=== PATIENT | male | born 1950 | race Caucasian/White ===

== ENCOUNTER 2019-04-28 14:40 | Inpatient (IN) | payer MEDICARE, OTHER ==
[~2019-04-28] VITALS: Ht 180.3 cm; Wt 97.2 kg
[~2019-04-28 14:40] MED LIST: ASPI-482 PO; BYSTOLIC5 MG PO; CHLO1CAP PO; CHOL100013 PO; FENO50CA PO; GABA300C18 PO; LEVO50TA5 PO; MORP15TA PO; MORP30TA3 PO; NITR0.4T SL; PRAV10TA2 PO; ZOLP10TA PO
[2019-04-28 15:06] VITALS: BP 105/70
[2019-04-28] MEDS ORDERED: TIZA4TAB2 PO (16:21)
--- NOTE | 2019-04-28 16:31 | PDOC2 ---
CARDIAC CONSULT DATE OF CONSULT Date of Consult DATE: 04/28/19 TIME: 16:25 SOURCE Source: Chart review, Patient HISTORY OF PRESENT ILLNESS HISTORY OF PRESENT ILLNESS This is a pleasant 69 yo male admitted for complains of chest pain and SOA. Pt was admitted at [facility] for renal failure with hx of renal tumor resection and bladder CA. He was treated with fluids as he was noted with dizziness, unsteady gait. Unclear in regards to what precipitated his significant renal failure as verbalized drinking at least 44 oz of fluid daily with no nausea or vomiting or diarrhea,. At that time he was also noted with photopsia, muffled hearing and confusion and was suspected that some of his medications maybe contributing such as opiod, gabapentin. He was treated and renal function got better and released yesterday. This morning around 0230 He started having intractable coughing with hemoptysis, citing bright red blood and was having sharp right chest pain and SOA. He was coughing so hard that he actually he had a urinary incontinence epi sodes. He was admitted at [place] again and noted with elevated troponin and transferred to [facility]. 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 PAST MEDICAL HISTORY Cardiovascular: CAD, HTN, Hyperlipidemia Pulmonary: Other (TB at 11 yrs old; [facility]) CENTRAL NERVOUS SYSTEM: Periperal neuropathy GI: No pertinent hx Heme/Onc: Cancer (renal tumor) Hepatobiliary: No pertinent hx Musculoskeletal: low back pain, Osteoarthritis Rheumatologic: No pertinent hx Infectious disease: No pertinent hx Renal/: Bladder Ca. Endocrine: No pertinent hx PAST SURGICAL HISTORY Past Surgical History: Cataract Removal, Other (left renal tumor removal; PCI/stent; back surgery; gastric surgery; vasectomy) FAMILY HISTORY Family History: Heart Disease (sister) SOCIAL HISTORY Smoke: Quit ALCOHOL: none Drugs: None Lives: with Family ALLERGIES ALLERGIES: Coded Allergies: No Known Drug Allergies (Unverified , 01/19/16) ROS Review of System 14 point ROS evaluated with pertinent positives noted per HPI PHYSICAL EXAM General: Alert, Oriented X3, Cooperative, No acute distress HEENT: Atraumatic, Mucous membr. moist/pink Lungs: Clear to auscultation, Normal air movement Heart: Regular rate (SR), Other (distant heart sounds) Abdomen: Soft, No tenderness Extremities: No cyanosis, No edema Skin: No breakdown, No significant lesion Neuro: Normal speech, Sensation intact Psych/Mental Status: Mental status NL, Mood NL MUSCULOSKELETAL: Osteoarthritic changes both hands VITALS/I&O VITALS/I&O: Vital Signs Date Time Temp Pulse Resp B/P (MAP) Pulse Ox O2 Delivery O2 Flow Rate FiO2 04/28/19 15:06 98.6 90 20 105/70 (82) 93 Nasal Cannula 4.0 98.6 ASSESSMENT/PLAN ASSESSMENT/PLAN 1. NSTEMI: trending up to 8, no EKG changes so far 2. Hemoptysis with intractable coughing with right chest pain 3. Hx of TB as 11 yrs old. 4. CAD: 2 stents with last placed in 2012. Follows with [facility] cardiology 5. HTN: controlled 6. HLP 7. Hx of bladder CA and left renal tumor resection 8. CKD: related to above. 9. Remote hx of tobaccoism Recommendations 1. Consult pulmonary and renal. IVF received in [facility] ED 2. Noncontrast CT chest, TTE today. Repeat EKG. 3. ASA. Heparin protocol. IVF 4. Repeat CBC, BMP, INR, and Mg. Check lipids 5. NPO after midnight GEORGE CAMARGO DEVELOPMENT EXECUTIVE Apr 28, 2019 16:31
[2019-04-28] MEDS ORDERED: MULT1TAB52 PO (17:04)
[2019-04-28] MEDS ORDERED: CALC250T PO (17:04)
[2019-04-28] MEDS ORDERED: OMEP20CA10 PO (17:04)
[2019-04-28] MEDS ORDERED: IV 1/2 NORMAL SALINE 1,000 ML IV ONE (17:15)
[2019-04-28 17:18] LABS: CALCIUM 7.7 mg/dL (8.5-10.1); CREATININE 1.6 mg/dL (0.7-1.3); GFR 43.2; HEMATOCRIT 39.8 % (39.0-53.0); HEMOGLOBIN 13.4 g/dL (13.0-17.5); MAGNESIUM 0.8 mg/dL (1.8-2.4); POTASSIUM 4.4 mmol/L (3.5-5.1); RED BLOOD COUNT 4.41 x10^6/uL (4.30-5.70); RED CELL DISTRIBUTION WIDTH 13.9 % (11.5-14.5); WHITE BLOOD COUNT 9.8 x10^3/uL (4.0-11.0)
--- NOTE | 2019-04-28 17:22 | PDOC1 ---
History and Physical Date of Admission Date of Admission DATE: 04/28/19 TIME: 17:21 Identification/Chief Complaint Chief Complaint TRANSFERRED FROM [facility] ER admitted at [facility] for renal failure with hx of renal tumor resection and bladder CA. He was treated with fluids as he was noted with dizziness, unsteady gait. HAS significant renal failure as verbalized drinking at least 44 oz of fluid daily with no nausea or vomiting or diarrhea,. NOTED muffled hearing and confusion . He was released yesterday. This morning around 0230 He started having intractable coughing , sharp right chest pain and SOA. Past Medical History Past Medical History PAST MEDICAL HISTORY Cardiovascular: CAD, HTN, Hyperlipidemia Pulmonary: Other (TB at 11 yrs old; [facility]) CENTRAL NERVOUS SYSTEM: Peripheral neuropathy GI: No pertinent hx Heme/Onc: Cancer (renal tumor) Hepatobiliary: No pertinent hx Musculoskeletal: low back pain, Osteoarthritis Rheumatologic: No pertinent hx Infectious disease: No pertinent hx Renal/: Bladder Ca. Endocrine: No pertinent hx PAST SURGICAL HISTORY Past Surgical History: Cataract Removal, Other (left renal tumor removal; PCI/stent; back surgery; gastric surgery; vasectomy FAMILY HISTORY Family History: Heart Disease (sister) SOCIAL HISTORY Smoke: Quit ALCOHOL: none Drugs: None Lives: with Family ALLERGIES ALLERGIES: Coded Allergies: No Known Drug Allergies Cardiovascular: CAD, HTN, Hyperlipidemia Pulmonary: Other (TB at 11 yrs old; [facility]) CENTRAL NERVOUS SYSTEM: Periperal neuropathy GI: No pertinent hx Heme/Onc: Cancer (renal tumor) Hepatobiliary: No pertinent hx Musculoskeletal: low back pain, Osteoarthritis Rheumatologic: No pertinent hx Infectious disease: No pertinent hx Renal/: Bladder Ca. Endocrine: No pertinent hx Past Surgical History Past Surgical History: Cataract Removal, Other (left renal tumor removal; PCI/stent; back surgery; gastric surgery; vasectomy) Family History Family History: Heart Disease (sister) Social History Smoke: Quit ALCOHOL: none Drugs: None Current Medications Current Medications Current Medications Sodium Chloride 1,000 ml @ 100 mls/hr 1X ONCE IV ; Start 04/28/19 at 17:15; Stop 04/29/19 at 03:14 Heparin Sodium/ Dextrose 500 ml @ 0 mls/hr CONT PRN IV cvc protocol; Start 04/28/19 at 17:15 Heparin Sodium (Porcine) (Heparin Sodium) 2,350 unit PRN Q6HRS PRN IV FOR UFH LEVEL LESS THAN 0.2; Start 04/28/19 at 17:15 Info (Anti-Coagulation Monitoring By Pharmacy) 1 each PRN DAILY PRN MC SEE COMMENTS; Start 04/28/19 at 17:30 Active Scripts Active Reported Calcium Citrate 250 Mg Tablet 250 Mg PO DAILY Multivitamins (Multivitamin) 1 Each Tablet 1 Tab PO DAILY Omeprazole 20 Mg Capsule.dr 20 Mg PO BID Tizanidine Hcl 4 Mg Tablet 4 Mg PO TID PRN Gabapentin (Gabapentin) 300 Mg Capsule 600 Mg PO TID Pravastatin Sodium 10 Mg Tablet 1 Tab PO DAILY Aspir 81 (Aspirin) 81 Mg Tablet.dr 1 Tab PO DAILY Morphine Sulfate 15 Mg Tablet 1 Tab PO BID Allergies Allergies: Coded Allergies: No Known Drug Allergies (Unverified , 01/19/16) ROS General: No: Chills, Night Sweats, Fatigue, Malaise, Appetite, Other PSYCHOLOGICAL ROS: YES: Anxiety; No: Behavioral Disorder, Concentration difficultie, Decreased libido, Depression, Disorientation, Hallucinations, Hostility, Irritablity, Memory difficulties, Mood Swings, Obsessive thoughts, Physical abuse, Sexual abuse, Sleep disturbances, Suicidal ideation, Other Eyes: No Blurry vision, No Decreased vision, No Double vision, No Dry eyes, No Excessive tearing, No Eye Pain, No Itchy Eyes, No Loss of vision, No Photophobia, No Scotomata, No Uses contacts, No Uses glasses, No Other HEENT: No: Heacaches, Visual Changes, Hearing change, Nasal congestion, Nasal discharge, Oral lesions, Sinus pain, Sore Throat, Epistaxis, Sneezing, Snoring, Tinnitus, Vertigo, Vocal changes, Other ALLERGY AND IMMUNOLOGY: No: Hives, Insect Bite Sensitivity, Itchy/Watery Eyes, Nasal Congestion, Post Nasal Drip, Seasonal Allergies, Other ENDOCRINE: No: Breast Changes, Galactorrhea, Hair Pattern Changes, Hot Flashes, Malaise/lethargy, Mood Swings, Palpitations, Polydipsia/polyuria, Skin Changes, Temperature Intolerance, Unexpected Weight Changes, Other Breast: No New/Changing Breast Lumps, No Nipple changes, No Nipple discharge, No Other Respiratory: YES: Hemoptysis Cardiovascular: yes Chest Pain Musculoskeletal: No Gait Disturbance, No Joint Pain, No Joint Stiffness, No Joint Swelling, No Muscle Pain, No Muscular Weakness, No Pain In:, No Swelling In:, No Other Neurological: No Behavorial Changes, No Bowel/Bladder ControlChng, No Confusion, No Dizziness, No Gait Disturbance, No Headaches, No Impaired Coord/balance, No Memory Loss, No Numbness/Tingling, No Seizures, No Speech Problems, No Tremors, No Visual Changes, No Weakness, No Other Skin: Yes Dry Skin; No Eczema, No Hair Changes, No Lumps, No Mole Changes, No Mottling, No Nail Changes, No Pruritus, No Rash, No Skin Lesion Changes, No Other, No Acne Physical Exam General: Alert, Oriented X3, Cooperative, No acute distress HEENT: Atraumatic, PERRLA Lungs: Clear to auscultation Heart: S1S2, RRR, no thrills Breasts: Not examined Abdomen: Normal bowel sounds, Soft Rectal Exam: not examined PELVIC: Examination not indicated Extremities: No clubbing, No cyanosis Neuro: Normal speech, Strength at 5/5 X4 ext, Sensation intact, Cranial nerves 3-12 NL Psych/Mental Status: Mental status NL, Mood NL Vitals Vitals Vital Signs Date Time Temp Pulse Resp B/P (MAP) Pulse Ox O2 Delivery O2 Flow Rate FiO2 04/28/19 15:06 98.6 90 20 105/70 (82) 93 Nasal Cannula 4.0 98.6 Labs Labs Laboratory Tests Test 04/28/19 16:10 White Blood Count 9.8 x10^3/uL (4.0-11.0) Red Blood Count 4.41 x10^6/uL (4.30-5.70) Hemoglobin 13.4 g/dL (13.0-17.5) Hematocrit 39.8 % (39.0-53.0) Mean Corpuscular Volume 90 fL (79-100) Mean Corpuscular Hemoglobin 30 pg (25-35) Mean Corpuscular Hemoglobin Concent 34 g/dL (31-37) Red Cell Distribution Width 13.9 % (11.5-14.5) Platelet Count 116 x10^3/uL (140-400) Sodium Level 146 mmol/L (136-145) Potassium Level 4.4 mmol/L (3.5-5.1) Chloride Level 110 mmol/L (98-107) Carbon Dioxide Level 26 mmol/L (21-32) Anion Gap 10 (6-14) Blood Urea Nitrogen 28 mg/dL (8-26) Creatinine 1.6 mg/dL (0.7-1.3) Estimated GFR (Cockcroft-Gault) 43.2 Glucose Level 110 mg/dL (70-99) Calcium Level 7.7 mg/dL (8.5-10.1) Magnesium Level 0.8 mg/dL (1.8-2.4) Troponin I Quantitative 8.706 ng/mL (0.000-0.055) Laboratory Tests Test 04/28/19 16:10 White Blood Count 9.8 x10^3/uL (4.0-11.0) Red Blood Count 4.41 x10^6/uL (4.30-5.70) Hemoglobin 13.4 g/dL (13.0-17.5) Hematocrit 39.8 % (39.0-53.0) Mean Corpuscular Volume 90 fL (79-100) Mean Corpuscular Hemoglobin 30 pg (25-35) Mean Corpuscular Hemoglobin Concent 34 g/dL (31-37) Red Cell Distribution Width 13.9 % (11.5-14.5) Platelet Count 116 x10^3/uL (140-400) Sodium Level 146 mmol/L (136-145) Potassium Level 4.4 mmol/L (3.5-5.1) Chloride Level 110 mmol/L (98-107) Carbon Dioxide Level 26 mmol/L (21-32) Anion Gap 10 (6-14) Blood Urea Nitrogen 28 mg/dL (8-26) Creatinine 1.6 mg/dL (0.7-1.3) Estimated GFR (Cockcroft-Gault) 43.2 Glucose Level 110 mg/dL (70-99) Calcium Level 7.7 mg/dL (8.5-10.1) Magnesium Level 0.8 mg/dL (1.8-2.4) Troponin I Quantitative 8.706 ng/mL (0.000-0.055) Images Images COMPARISON STUDY: Chest radiograph 04/28/2019. TECHNIQUE: Unenhanced axial images were obtained through the lungs and upper abdomen. Coronal coronal and sagittal multiplanar reconstructions were also obtained. PQRS compliance statement: One or more of the following individualized dose reduction techniques were utilized for this examination: 1. Automated exposure control 2. Adjustment of the mA and/or kV according to patient size 3. Use of iterative reconstruction technique FINDINGS: Lungs and Airways: Multifocal bilateral ground glass opacities and consolidations, greatest in the right lung. Cluster of left lower lobe nodules largest measuring 0.7 cm demonstrates greater than two-year stability. Additional scattered calcified pulmonary granulomas. Normal central airways. Pleura: Small right pleural effusion. Heart and Mediastinum: The visualized thyroid gland is normal in size and attenuation. No axillary or supraclavicular lymphadenopathy. No mediastinal, hilar or retrocrural lymphadenopathy. Calcified mediastinal and hilar lymph nodes consistent with remote granulomatous disease. Cardiomegaly. No pericardial effusion. Extensive coronary artery atherosclerotic disease. Atherosclerosis of the thoracic aorta and branch vessels. Abdomen: Partially visualized right renal upper pole caliectasis, better characterized on recent renal ultrasound. Right renal calculi. Calcified splenic granulomas. Gastric bypass. Bones and Soft Tissues: The visualized skeletal structures and soft tissues of the chest wall are within normal limits. IMPRESSION: Multifocal bilateral ground glass opacities and consolidations, greatest in the right lung and likely representing multifocal infection. Recommend follow-up unenhanced chest CT in 2-3 months after appropriate medical therapy to ensure resolution. Small right pleural effusion. Electronically signed by: Mateo Parada MD (04/28/2019 5:20 PM) [facility] VTE Prophylaxis Ordered VTE Prophylaxis Devices: No VTE Pharmacological Prophylaxi: Yes Assessment/Plan Assessment/Plan ASSESSMENT 1. NSTEMI: ACUTE 2. Hemoptysis Multifocal bilateral ground glass opacities and consolidations, greatest in the right lung and likely representing multifocal infection. 3. Hx of TB as child 4. CAD: 2 stents with last placed in 2012. [facility] 5. HTN: 6. hyperlipidemia 7. Hx of bladder CA and left renal tumor resection 8. CKD: 9. hx of tobacco use, quit 10. hypothyroid on replacement 11. peripheral neuropathy plan 1. Consult pulmonary 2. consult nephrology. 3. CT chest, 4. echo 5. Heparin 6. FLP 7. id consult 8. sputum culture 9. home meds 10. admit 43 min cc time JOSEPH ARRINGTON MD Apr 28, 2019 17:22
[2019-04-28 17:29] LABS: PROTHROMBIN TIME PATIENT 15.6 SEC (11.7-14.0)
[2019-04-28] MEDS ORDERED: ANTI-COAG MONITOR BY PHARMACY. MC PRN (17:30)
[2019-04-28] MEDS: HEPARIN 25,000UTS/500ML PREMIX 500 ML IV PRN (17:40)
[2019-04-28] MEDS ORDERED: MAGNESIUM SULFATE 4GM 100 ML IV ONE (18:00)
[2019-04-28] MEDS ORDERED: CARV25TA2 PO (18:02)
[2019-04-28] MEDS ORDERED: LEVO75TA5 PO (18:02)
[2019-04-28] MEDS ORDERED: BUPR1PAT8 TP (18:02)
[2019-04-28] MEDS ORDERED: IV NORMAL SALINE 1000ML BAG 1,000 ML IV SCH (18:05)
[2019-04-28] MEDS ORDERED: 0.9 % SODIUM CHLORIDE 10 ML DISP.SYRIN. IV PRN (18:15)
[2019-04-28] MEDS ORDERED: ACETAMINOPHEN 325 MG TABLET. PO PRN (18:15)
[2019-04-28] MEDS ORDERED: cloNIDine HCL 0.1 MG TABLET PO PRN (18:15)
[2019-04-28] MEDS ORDERED: ONDANSETRON PF 4 MG/2 ML VIAL. IV PRN (18:15)
[2019-04-28] MEDS ORDERED: guaiFENesin ORAL 200 MG/10 ML LIQUID. PO PRN (18:15)
[2019-04-28] MEDS ORDERED: SODIUM PHOSPHATES 19/7GM 133 ML ENEMA. PR PRN (18:15)
[2019-04-28 19:00] VITALS: BP 92/51
[2019-04-28 20:00] VITALS: BP 94/51
[2019-04-28] MEDS: ATORVASTATIN CALCIUM 10 MG TABLET. PO SCH (20:58)
[2019-04-28 21:00] VITALS: BP 110/63
[2019-04-28] MEDS: GABAPENTIN 300 MG CAPSULE. PO SCH (21:00)
[2019-04-28] MEDS: CARVEDILOL 12.5 MG TABLET. PO SCH (21:00)
[2019-04-28] MEDS: MORPHINE ER 15 MG TABLET.ER PO SCH (21:01)
[2019-04-28 22:00] VITALS: BP 93/44
[2019-04-28 23:00] VITALS: BP 96/54
[2019-04-28] MEDS: ALBUTEROL SULFATE 2.5 MG/3 ML NEBU. NEB PRN (23:29)
[2019-04-29] VITALS (32 sets, daily range): BP systolic 63–124; BP diastolic 39–68
--- NOTE | 2019-04-29 01:50 | NUR ---
Pt A&O x4, O2 saturation low 90's, but experiencing Low BP and inadequate MAP; 67/43 at 0134 AM. Bin Packer paged. Bin Packer answered page. Bin Packer informed and updated on pt condition. Bin Packer ordered this RN to begin Dopamine drip at 3mcg/min and titrate to keep systolic blood pressure above 95 mmHg. Also oyster worker ordered this RN to start NS at 75mLs/ hr. Will continue to assess and monitor pt condition.
[2019-04-29] MEDS: IV NORMAL SALINE 1000ML BAG 1,000 ML IV SCH ×2 (02:00→13:47)
[2019-04-29] MEDS: HEPARIN for IV BOLUS 10,000 UNIT/10 ML VIAL. IV PRN (02:13)
--- NOTE | 2019-04-29 03:15 | NUR ---
Pt O2 saturations dropping with titration of Dopamine. RT paged. RT called back and put pt on Bipap with settings of IPAP at 18, EPAP of 6, Backup rate of 16 and O2 of 50%. Will consult orthotic/prosthetic clinician to inform them of pt status change and intervention.
[2019-04-29 05:27] LABS: BASO # 0.1 x10^3/uL (0.0-0.2); BASO % 1 % (0-3); EOS # 0.1 x10^3/uL (0.0-0.7); EOS % 1 % (0-3); HEMATOCRIT 35.1 % (39.0-53.0); HEMOGLOBIN 11.9 g/dL (13.0-17.5); LYMPH % 7 % (24-48); MEAN CORPUSCULAR HEMOGLOBIN 31 pg (25-35); MEAN CORPUSCULAR HGB CONC 34 g/dL (31-37); MEAN CORPUSCULAR VOLUME 90 fL (79-100); MONO # 0.5 x10^3/uL (0.0-1.1); MONO % 3 % (0-9); NEUT # 12.6 x10^3/uL (1.8-7.7); NEUT % 89 % (31-73); PLATELET COUNT 123 x10^3/uL (140-400); RED BLOOD COUNT 3.88 x10^6/uL (4.30-5.70); RED CELL DISTRIBUTION WIDTH 14.4 % (11.5-14.5); WHITE BLOOD COUNT 14.2 x10^3/uL (4.0-11.0)
[2019-04-29 05:49] LABS: CALCIUM 7.3 mg/dL (8.5-10.1); CHOLESTEROL/HDL RATIO 1.6; CREATININE 1.7 mg/dL (0.7-1.3); GFR 40.3; MAGNESIUM 1.9 mg/dL (1.8-2.4); POTASSIUM 4.6 mmol/L (3.5-5.1)
--- NOTE | 2019-04-29 06:05 | NUR ---
This RN called Dr. Tatum to give update about the status of pt in room 110. Status and pt condition briefed to community health nurse staff. This RN made Tool Setter aware of Bipap intervention aswell as settings of IPAP of 18, EPAP of 6, Backup rate of 16 and O2 of 50%, community health nurse staff approved of all settings and Bipap order. Tool Setter also ordered urine drug screen for pt. Tool Setter also ordered Solumedrol 125 mg IVP one time now and a separate order for Solumedrol 125mg IVP BID. Tool Setter also ordered a repeat chest xray as well as an ABG to accompany morning labs. Will continue to assess and monitor pt.
[2019-04-29] MEDS ORDERED: methylPREDNISolone SOD SUCC PF 125 MG/2 ML VIAL. IV ONE (06:30)
[2019-04-29] MEDS: HEPARIN 25,000UTS/500ML PREMIX 500 ML IV PRN ×2 (07:28→23:15)
[2019-04-29 07:29] LABS: % BANDS 29 % (0-9); % LYMPHS 5 % (24-48); % METAS 5 % (0-0); % MONOS 4 % (0-10); % MYELOS 2 % (0-0); % SEGS 55 % (35-66); PLT ESTIMATE DECREASED (ADEQUATE)
--- NOTE | 2019-04-29 07:55 | RAD ---
EXAM: AP View of the chest DATE: 04/29/2019 6:11 AM INDICATION: Pulmonary opacities, follow up COMPARISON: CT 04/28/19 FINDINGS: The heart is not enlarged. Diffuse right sided parenchymal opacities and left infrahilar airspace opacities are stable. Mediastinal and hilar contours are normal. No pleural effusion or pneumothorax. IMPRESSION: 1. Bilateral airspace opacities likely multifocal pneumonia, stable. Electronically signed by: Freddy Titus MD (04/29/2019 7:52 AM) [facility]
[2019-04-29] MEDS: CARVEDILOL 12.5 MG TABLET. PO SCH ×2 (08:00→17:00)
--- NOTE | 2019-04-29 08:15 | PDOC ---
Infectious Disease Note Vital Sign Vital Signs Vital Signs Date Time Temp Pulse Resp B/P (MAP) Pulse Ox O2 Delivery O2 Flow Rate FiO2 04/29/19 05:55 94 BiPAP/CPAP 04/29/19 03:41 18 6.0 04/29/19 02:43 75 63/40 (48) 04/29/19 00:00 99.0 99.0 Labs Lab Laboratory Tests Test 04/28/19 16:10 04/28/19 17:45 04/29/19 00:40 04/29/19 05:00 White Blood Count 9.8 x10^3/uL (4.0-11.0) 14.2 x10^3/uL (4.0-11.0) Red Blood Count 4.41 x10^6/uL (4.30-5.70) 3.88 x10^6/uL (4.30-5.70) Hemoglobin 13.4 g/dL (13.0-17.5) 11.9 g/dL (13.0-17.5) Hematocrit 39.8 % (39.0-53.0) 35.1 % (39.0-53.0) Mean Corpuscular Volume 90 fL (79-100) 90 fL (79-100) Mean Corpuscular Hemoglobin 30 pg (25-35) 31 pg (25-35) Mean Corpuscular Hemoglobin Concent 34 g/dL (31-37) 34 g/dL (31-37) Red Cell Distribution Width 13.9 % (11.5-14.5) 14.4 % (11.5-14.5) Platelet Count 116 x10^3/uL (140-400) 123 x10^3/uL (140-400) Prothrombin Time 15.6 SEC (11.7-14.0) Prothromb Time International Ratio 1.3 (0.8-1.1) Sodium Level 146 mmol/L (136-145) 143 mmol/L (136-145) Potassium Level 4.4 mmol/L (3.5-5.1) 4.6 mmol/L (3.5-5.1) Chloride Level 110 mmol/L (98-107) 107 mmol/L (98-107) Carbon Dioxide Level 26 mmol/L (21-32) 28 mmol/L (21-32) Anion Gap 10 (6-14) 8 (6-14) Blood Urea Nitrogen 28 mg/dL (8-26) 32 mg/dL (8-26) Creatinine 1.6 mg/dL (0.7-1.3) 1.7 mg/dL (0.7-1.3) Estimated GFR (Cockcroft-Gault) 43.2 40.3 Glucose Level 110 mg/dL (70-99) 121 mg/dL (70-99) Calcium Level 7.7 mg/dL (8.5-10.1) 7.3 mg/dL (8.5-10.1) Magnesium Level 0.8 mg/dL (1.8-2.4) 1.9 mg/dL (1.8-2.4) Troponin I Quantitative 8.706 ng/mL (0.000-0.055) 9.584 ng/mL (0.000-0.055) Heparin Anti-Xa Act, Unfractionated 0.28 IU/mL (0.30-0.70) 0.12 IU/mL (0.30-0.70) 0.44 IU/mL (0.30-0.70) Neutrophils (%) (Auto) 89 % (31-73) Lymphocytes (%) (Auto) 7 % (24-48) Monocytes (%) (Auto) 3 % (0-9) Eosinophils (%) (Auto) 1 % (0-3) Basophils (%) (Auto) 1 % (0-3) Neutrophils # (Auto) 12.6 x10^3/uL (1.8-7.7) Lymphocytes # (Auto) 1.0 x10^3/uL (1.0-4.8) Monocytes # (Auto) 0.5 x10^3/uL (0.0-1.1) Eosinophils # (Auto) 0.1 x10^3/uL (0.0-0.7) Basophils # (Auto) 0.1 x10^3/uL (0.0-0.2) Segmented Neutrophils % 55 % (35-66) Band Neutrophils % 29 % (0-9) Lymphocytes % 5 % (24-48) Monocytes % 4 % (0-10) Metamyelocytes % 5 % (0-0) Myelocytes % 2 % (0-0) Platelet Estimate Decreased (ADEQUATE) Large Platelets Occ Triglycerides Level 33 mg/dL (0-150) Cholesterol Level 64 mg/dL (0-200) LDL Cholesterol, Calculated 18 mg/dL (0-100) VLDL Cholesterol, Calculated 7 mg/dL (0-40) Non-HDL Cholesterol Calculated 25 mg/dL (0-129) HDL Cholesterol 39 mg/dL (40-60) Cholesterol/HDL Ratio 1.6 Objective Assessment Pneumonia/CHF KAJAL Troponin leak Leukocytosis Recent hospitalization Plan Plan of Care bc sputum culture start zosyn supportive care MOHIT CALLAHAN MD Apr 29, 2019 08:15
[2019-04-29 08:29] LABS: BASE EXCESS ABG 0 mmol/L (-3-3); HCO3 ABG 25 mmol/L (21-28); PCO2 ABG 42 mmHg (35-46); PO2 ABG 66 mmHg (65-108); SAT O2 ABG 92 % (92-99)
[2019-04-29] MEDS: MORPHINE ER 15 MG TABLET.ER PO SCH ×2 (08:49→21:08)
[2019-04-29] MEDS: CALCIUM CARBONATE 500 MG TABLET PO SCH (09:00)
[2019-04-29] MEDS ORDERED: ACETAMINOPHEN 500 MG TABLET PO PRN (09:00)
[2019-04-29] MEDS ORDERED: ACETAMINOPHEN/CODEINE 300/30MG TABLET. PO PRN (09:00)
[2019-04-29 09:13] LABS: FIO2 ABG 50
--- NOTE | 2019-04-29 09:32 | CONS ---
DATE OF CONSULTATION: 04/29/2019 REQUESTING PHYSICIAN: Harley Jacques MD REASON FOR CONSULTATION: Abnormal chest CT. HISTORY OF PRESENT ILLNESS: This is a 69-year-old gentleman who was admitted to [facility] for about 3 or 4 days with acute kidney injury. He received lots of fluids. He had dizziness then the patient apparently improved and was discharged. The patient was home for about a day or so and he came back here with significant chest pain and shortness of breath. The patient did not have any fever, did not have any nausea, vomiting, diarrhea, urinary symptoms, abdominal pain, headache or visual symptoms. The patient was found to have a temperature up to 99, low blood pressure. Creatinine 1.7. Troponin up to 9.5. A chest x-ray and chest CT, bilateral ground-glass opacities and consolidations. He did have a chest x-ray a few days before at [facility] at the time of his admission there, which was normal. PAST MEDICAL HISTORY: Positive for history of coronary artery disease with 3 heart attacks and stenting done in the past. The patient also has had a bladder cancer history and has had renal tumor removal done. He has had back surgery done with spinal stenosis. He has had some muscle rupture done, which surgery done for that. Also, has hypertension, hyperlipidemia. Going up when 11 years old, he was diagnosed with TB and it is not very clear about that history. Also, has peripheral neuropathy. SOCIAL HISTORY: Negative for smoking, alcohol, illicit drug use. ALLERGIES: No known drug allergies. CURRENT MEDICATIONS: The patient is not on any antibiotics. REVIEW OF SYSTEMS: As per HPI, all other systems reviewed are negative. PHYSICAL EXAMINATION: GENERAL: Alert and oriented gentleman, not in distress. VITAL SIGNS: Stable with a T-max 99. HEENT: NAD. NECK: Supple, no JVP, no lymphadenopathy. LUNGS: Clear. HEART: S1, S2 regular. ABDOMEN: Benign. EXTREMITIES: No edema, cyanosis. SKIN: Unremarkable. NEUROLOGIC: Alert, awake and appropriate. No focal neurologic deficit. LABORATORY DATA: White count is 14,000. BUN and creatinine is 32 and 1.7. Troponin is 9.5. A chest x-ray and chest CT showed bilateral ground-glass opacity with consolidation. IMPRESSION: 1. Abnormal chest CT with the ground-glass opacity and consolidation, healthcare facility associated pneumonia is a possibility, although congestive heart failure is another possibility, especially when he received significant fluid with his acute kidney injury recently and he does have a history of heart attacks as well as troponin is very high. 2. Troponin leak. 3. Acute kidney injury. 4. Leukocytosis. 5. Coronary artery disease. RECOMMENDATIONS: I would initiate Zosyn. Blood culture and sputum culture will be obtained. Supportive care. Echo is done, report is pending and we will continue to follow. Thank you very much, Dr. Jacques, for giving me the opportunity to participate in this patient's care. MOHIT CALLAHAN MD DR: RODRIGO/pam JOB#: [id number] / [id number]
[2019-04-29] MEDS: GABAPENTIN 300 MG CAPSULE. PO SCH ×3 (09:43→21:08)
[2019-04-29] MEDS: PANTOPRAZOLE 40 MG TABLET.DR. PO SCH (09:44)
[2019-04-29] MEDS: MULTIVITAMIN with MINERAL TABLET. PO SCH (09:44)
[2019-04-29] MEDS: ASPIRIN ENTERIC COATED 81 MG TABLET.DR. PO SCH (09:44)
[2019-04-29] MEDS: LEVOTHYROXINE 75 MCG TABLET PO SCH (09:44)
[2019-04-29 10:00] LABS: BARBITURATES NEG (NEG); BENZODIAZEPINES NEG (NEG); CANNABINOIDS NEG (NEG); COCAINE NEG (NEG); METHADONE NEG (NEG); OPIATES POS (NEG); PHENCYCLIDINE NEG (NEG)
[2019-04-29 10:01] LABS: AMPHETAMINE/METHAMPHETAMINE NEG (NEG)
--- NOTE | 2019-04-29 12:24 | PDOC ---
CARDIO Progress Notes Date and Time Date of Service 04/29/2019 Time of Evaluation 1225 Subjective Subjective: No shortness of breath, No Palpitations, Other (right chest pain better) Vitals Vitals Vital Signs Date Time Temp Pulse Resp B/P (MAP) Pulse Ox O2 Delivery O2 Flow Rate FiO2 04/29/19 12:00 Venturi Mask 15.0 04/29/19 11:35 99 04/29/19 11:02 98.9 72 116/59 (78) 98.9 04/29/19 10:00 16 Weight Weight [ ] Input and Output Intake and Output Intake and Output 04/29/19 07:00 Intake Total 864.9 ml Output Total 325 ml Balance 539.9 ml Intake Oral 180 ml IV Total 684.9 ml Output Urine Total 325 ml Laboratory Labs Laboratory Tests Test 04/28/19 16:10 04/28/19 17:45 04/29/19 00:40 04/29/19 05:00 White Blood Count 9.8 x10^3/uL (4.0-11.0) 14.2 x10^3/uL (4.0-11.0) Red Blood Count 4.41 x10^6/uL (4.30-5.70) 3.88 x10^6/uL (4.30-5.70) Hemoglobin 13.4 g/dL (13.0-17.5) 11.9 g/dL (13.0-17.5) Hematocrit 39.8 % (39.0-53.0) 35.1 % (39.0-53.0) Mean Corpuscular Volume 90 fL (79-100) 90 fL (79-100) Mean Corpuscular Hemoglobin 30 pg (25-35) 31 pg (25-35) Mean Corpuscular Hemoglobin Concent 34 g/dL (31-37) 34 g/dL (31-37) Red Cell Distribution Width 13.9 % (11.5-14.5) 14.4 % (11.5-14.5) Platelet Count 116 x10^3/uL (140-400) 123 x10^3/uL (140-400) Prothrombin Time 15.6 SEC (11.7-14.0) Prothromb Time International Ratio 1.3 (0.8-1.1) Sodium Level 146 mmol/L (136-145) 143 mmol/L (136-145) Potassium Level 4.4 mmol/L (3.5-5.1) 4.6 mmol/L (3.5-5.1) Chloride Level 110 mmol/L (98-107) 107 mmol/L (98-107) Carbon Dioxide Level 26 mmol/L (21-32) 28 mmol/L (21-32) Anion Gap 10 (6-14) 8 (6-14) Blood Urea Nitrogen 28 mg/dL (8-26) 32 mg/dL (8-26) Creatinine 1.6 mg/dL (0.7-1.3) 1.7 mg/dL (0.7-1.3) Estimated GFR (Cockcroft-Gault) 43.2 40.3 Glucose Level 110 mg/dL (70-99) 121 mg/dL (70-99) Calcium Level 7.7 mg/dL (8.5-10.1) 7.3 mg/dL (8.5-10.1) Magnesium Level 0.8 mg/dL (1.8-2.4) 1.9 mg/dL (1.8-2.4) Troponin I Quantitative 8.706 ng/mL (0.000-0.055) 9.584 ng/mL (0.000-0.055) Heparin Anti-Xa Act, Unfractionated 0.28 IU/mL (0.30-0.70) 0.12 IU/mL (0.30-0.70) 0.44 IU/mL (0.30-0.70) Neutrophils (%) (Auto) 89 % (31-73) Lymphocytes (%) (Auto) 7 % (24-48) Monocytes (%) (Auto) 3 % (0-9) Eosinophils (%) (Auto) 1 % (0-3) Basophils (%) (Auto) 1 % (0-3) Neutrophils # (Auto) 12.6 x10^3/uL (1.8-7.7) Lymphocytes # (Auto) 1.0 x10^3/uL (1.0-4.8) Monocytes # (Auto) 0.5 x10^3/uL (0.0-1.1) Eosinophils # (Auto) 0.1 x10^3/uL (0.0-0.7) Basophils # (Auto) 0.1 x10^3/uL (0.0-0.2) Segmented Neutrophils % 55 % (35-66) Band Neutrophils % 29 % (0-9) Lymphocytes % 5 % (24-48) Monocytes % 4 % (0-10) Metamyelocytes % 5 % (0-0) Myelocytes % 2 % (0-0) Platelet Estimate Decreased (ADEQUATE) Large Platelets Occ Triglycerides Level 33 mg/dL (0-150) Cholesterol Level 64 mg/dL (0-200) LDL Cholesterol, Calculated 18 mg/dL (0-100) VLDL Cholesterol, Calculated 7 mg/dL (0-40) Non-HDL Cholesterol Calculated 25 mg/dL (0-129) HDL Cholesterol 39 mg/dL (40-60) Cholesterol/HDL Ratio 1.6 Test 04/29/19 08:18 04/29/19 09:30 O2 Saturation 92 % (92-99) Arterial Blood pH 7.40 (7.35-7.45) Arterial Blood pCO2 at Patient Temp 42 mmHg (35-46) Arterial Blood pO2 at Patient Temp 66 mmHg (65-108) Arterial Blood HCO3 25 mmol/L (21-28) Arterial Blood Base Excess 0 mmol/L (-3-3) FiO2 50 Urine Opiates Screen Pos (NEG) Urine Methadone Screen Neg (NEG) Urine Barbiturates Neg (NEG) Urine Phencyclidine Screen Neg (NEG) Urine Amphetamine/Methamphetamine Neg (NEG) Urine Benzodiazepines Screen Neg (NEG) Urine Cocaine Screen Neg (NEG) Urine Cannabinoids Screen Neg (NEG) Urine Ethyl Alcohol Neg (NEG) Physical Exam HEENT: Neck Supple W Full Motion Chest: Symmetric LUNGS: Other (basilar crackles; venti mask in place) Heart: S1S2, RRR (SR) Abdomen: Soft N/T Extremities: No Calf Tenderness Neurology: alert, oriented, follow commands Assessment Assessment 1. NSTEMI: Peaked at 9.5, EKG SR with anterolateral changes 2. Pneumonia: no further hemoptysis 3. Septic shock: BP improving 4. CAD: 2 stents with last placed in 2012. Follows with [facility] cardiology 5. HTN 6. HLP 7. Hx of bladder CA and left renal tumor resection 8. CKD: possibly stage 3. nephrology consult pending. 9. Remote hx of tobaccoism Recommendations 1. antibiotics per ID and pulmonary 2. ASA. Heparin protocol. IVF 3. Preliminary EF normal, no RV dilation, awaiting full echo report 4. Ischemic workup in the next 24-48 hours. 5. Titrate off dopamine. Statin hold BP meds. 6. Bipap PRN GEORGE CAMARGO APRN Apr 29, 2019 12:24
--- NOTE | 2019-04-29 12:32 | PDOC ---
PULMONARY PROGRESS NOTES Vitals Vital Signs Date Time Temp Pulse Resp B/P (MAP) Pulse Ox O2 Delivery O2 Flow Rate FiO2 04/29/19 12:00 Venturi Mask 15.0 04/29/19 11:35 99 04/29/19 11:02 98.9 72 116/59 (78) 98.9 04/29/19 10:00 16 Labs Laboratory Tests Test 04/28/19 16:10 04/28/19 17:45 04/29/19 00:40 04/29/19 05:00 White Blood Count 9.8 x10^3/uL (4.0-11.0) 14.2 x10^3/uL (4.0-11.0) Red Blood Count 4.41 x10^6/uL (4.30-5.70) 3.88 x10^6/uL (4.30-5.70) Hemoglobin 13.4 g/dL (13.0-17.5) 11.9 g/dL (13.0-17.5) Hematocrit 39.8 % (39.0-53.0) 35.1 % (39.0-53.0) Mean Corpuscular Volume 90 fL (79-100) 90 fL (79-100) Mean Corpuscular Hemoglobin 30 pg (25-35) 31 pg (25-35) Mean Corpuscular Hemoglobin Concent 34 g/dL (31-37) 34 g/dL (31-37) Red Cell Distribution Width 13.9 % (11.5-14.5) 14.4 % (11.5-14.5) Platelet Count 116 x10^3/uL (140-400) 123 x10^3/uL (140-400) Prothrombin Time 15.6 SEC (11.7-14.0) Prothromb Time International Ratio 1.3 (0.8-1.1) Sodium Level 146 mmol/L (136-145) 143 mmol/L (136-145) Potassium Level 4.4 mmol/L (3.5-5.1) 4.6 mmol/L (3.5-5.1) Chloride Level 110 mmol/L (98-107) 107 mmol/L (98-107) Carbon Dioxide Level 26 mmol/L (21-32) 28 mmol/L (21-32) Anion Gap 10 (6-14) 8 (6-14) Blood Urea Nitrogen 28 mg/dL (8-26) 32 mg/dL (8-26) Creatinine 1.6 mg/dL (0.7-1.3) 1.7 mg/dL (0.7-1.3) Estimated GFR (Cockcroft-Gault) 43.2 40.3 Glucose Level 110 mg/dL (70-99) 121 mg/dL (70-99) Calcium Level 7.7 mg/dL (8.5-10.1) 7.3 mg/dL (8.5-10.1) Magnesium Level 0.8 mg/dL (1.8-2.4) 1.9 mg/dL (1.8-2.4) Troponin I Quantitative 8.706 ng/mL (0.000-0.055) 9.584 ng/mL (0.000-0.055) Heparin Anti-Xa Act, Unfractionated 0.28 IU/mL (0.30-0.70) 0.12 IU/mL (0.30-0.70) 0.44 IU/mL (0.30-0.70) Neutrophils (%) (Auto) 89 % (31-73) Lymphocytes (%) (Auto) 7 % (24-48) Monocytes (%) (Auto) 3 % (0-9) Eosinophils (%) (Auto) 1 % (0-3) Basophils (%) (Auto) 1 % (0-3) Neutrophils # (Auto) 12.6 x10^3/uL (1.8-7.7) Lymphocytes # (Auto) 1.0 x10^3/uL (1.0-4.8) Monocytes # (Auto) 0.5 x10^3/uL (0.0-1.1) Eosinophils # (Auto) 0.1 x10^3/uL (0.0-0.7) Basophils # (Auto) 0.1 x10^3/uL (0.0-0.2) Segmented Neutrophils % 55 % (35-66) Band Neutrophils % 29 % (0-9) Lymphocytes % 5 % (24-48) Monocytes % 4 % (0-10) Metamyelocytes % 5 % (0-0) Myelocytes % 2 % (0-0) Platelet Estimate Decreased (ADEQUATE) Large Platelets Occ Triglycerides Level 33 mg/dL (0-150) Cholesterol Level 64 mg/dL (0-200) LDL Cholesterol, Calculated 18 mg/dL (0-100) VLDL Cholesterol, Calculated 7 mg/dL (0-40) Non-HDL Cholesterol Calculated 25 mg/dL (0-129) HDL Cholesterol 39 mg/dL (40-60) Cholesterol/HDL Ratio 1.6 Test 04/29/19 08:18 04/29/19 09:30 O2 Saturation 92 % (92-99) Arterial Blood pH 7.40 (7.35-7.45) Arterial Blood pCO2 at Patient Temp 42 mmHg (35-46) Arterial Blood pO2 at Patient Temp 66 mmHg (65-108) Arterial Blood HCO3 25 mmol/L (21-28) Arterial Blood Base Excess 0 mmol/L (-3-3) FiO2 50 Urine Opiates Screen Pos (NEG) Urine Methadone Screen Neg (NEG) Urine Barbiturates Neg (NEG) Urine Phencyclidine Screen Neg (NEG) Urine Amphetamine/Methamphetamine Neg (NEG) Urine Benzodiazepines Screen Neg (NEG) Urine Cocaine Screen Neg (NEG) Urine Cannabinoids Screen Neg (NEG) Urine Ethyl Alcohol Neg (NEG) Laboratory Tests Test 04/28/19 16:10 04/28/19 17:45 04/29/19 00:40 04/29/19 05:00 White Blood Count 9.8 x10^3/uL (4.0-11.0) 14.2 x10^3/uL (4.0-11.0) Red Blood Count 4.41 x10^6/uL (4.30-5.70) 3.88 x10^6/uL (4.30-5.70) Hemoglobin 13.4 g/dL (13.0-17.5) 11.9 g/dL (13.0-17.5) Hematocrit 39.8 % (39.0-53.0) 35.1 % (39.0-53.0) Mean Corpuscular Volume 90 fL (79-100) 90 fL (79-100) Mean Corpuscular Hemoglobin 30 pg (25-35) 31 pg (25-35) Mean Corpuscular Hemoglobin Concent 34 g/dL (31-37) 34 g/dL (31-37) Red Cell Distribution Width 13.9 % (11.5-14.5) 14.4 % (11.5-14.5) Platelet Count 116 x10^3/uL (140-400) 123 x10^3/uL (140-400) Prothrombin Time 15.6 SEC (11.7-14.0) Prothromb Time International Ratio 1.3 (0.8-1.1) Sodium Level 146 mmol/L (136-145) 143 mmol/L (136-145) Potassium Level 4.4 mmol/L (3.5-5.1) 4.6 mmol/L (3.5-5.1) Chloride Level 110 mmol/L (98-107) 107 mmol/L (98-107) Carbon Dioxide Level 26 mmol/L (21-32) 28 mmol/L (21-32) Anion Gap 10 (6-14) 8 (6-14) Blood Urea Nitrogen 28 mg/dL (8-26) 32 mg/dL (8-26) Creatinine 1.6 mg/dL (0.7-1.3) 1.7 mg/dL (0.7-1.3) Estimated GFR (Cockcroft-Gault) 43.2 40.3 Glucose Level 110 mg/dL (70-99) 121 mg/dL (70-99) Calcium Level 7.7 mg/dL (8.5-10.1) 7.3 mg/dL (8.5-10.1) Magnesium Level 0.8 mg/dL (1.8-2.4) 1.9 mg/dL (1.8-2.4) Troponin I Quantitative 8.706 ng/mL (0.000-0.055) 9.584 ng/mL (0.000-0.055) Heparin Anti-Xa Act, Unfractionated 0.28 IU/mL (0.30-0.70) 0.12 IU/mL (0.30-0.70) 0.44 IU/mL (0.30-0.70) Neutrophils (%) (Auto) 89 % (31-73) Lymphocytes (%) (Auto) 7 % (24-48) Monocytes (%) (Auto) 3 % (0-9) Eosinophils (%) (Auto) 1 % (0-3) Basophils (%) (Auto) 1 % (0-3) Neutrophils # (Auto) 12.6 x10^3/uL (1.8-7.7) Lymphocytes # (Auto) 1.0 x10^3/uL (1.0-4.8) Monocytes # (Auto) 0.5 x10^3/uL (0.0-1.1) Eosinophils # (Auto) 0.1 x10^3/uL (0.0-0.7) Basophils # (Auto) 0.1 x10^3/uL (0.0-0.2) Segmented Neutrophils % 55 % (35-66) Band Neutrophils % 29 % (0-9) Lymphocytes % 5 % (24-48) Monocytes % 4 % (0-10) Metamyelocytes % 5 % (0-0) Myelocytes % 2 % (0-0) Platelet Estimate Decreased (ADEQUATE) Large Platelets Occ Triglycerides Level 33 mg/dL (0-150) Cholesterol Level 64 mg/dL (0-200) LDL Cholesterol, Calculated 18 mg/dL (0-100) VLDL Cholesterol, Calculated 7 mg/dL (0-40) Non-HDL Cholesterol Calculated 25 mg/dL (0-129) HDL Cholesterol 39 mg/dL (40-60) Cholesterol/HDL Ratio 1.6 Test 04/29/19 08:18 04/29/19 09:30 O2 Saturation 92 % (92-99) Arterial Blood pH 7.40 (7.35-7.45) Arterial Blood pCO2 at Patient Temp 42 mmHg (35-46) Arterial Blood pO2 at Patient Temp 66 mmHg (65-108) Arterial Blood HCO3 25 mmol/L (21-28) Arterial Blood Base Excess 0 mmol/L (-3-3) FiO2 50 Urine Opiates Screen Pos (NEG) Urine Methadone Screen Neg (NEG) Urine Barbiturates Neg (NEG) Urine Phencyclidine Screen Neg (NEG) Urine Amphetamine/Methamphetamine Neg (NEG) Urine Benzodiazepines Screen Neg (NEG) Urine Cocaine Screen Neg (NEG) Urine Cannabinoids Screen Neg (NEG) Urine Ethyl Alcohol Neg (NEG) Medications Active Scripts Medications Dose Route/Sig Max Daily Dose Days Date Category Butrans (Buprenorphine) 1 Each Patch.tdwk 1 Patch TP WEEKLY 04/28/19 Reported Carvedilol 25 Mg Tablet 25 Mg PO BIDWMEALS 04/28/19 Reported Levothyroxine Sodium 75 Mcg Tablet 75 Mcg PO DAILYAC 04/28/19 Reported Calcium Citrate 250 Mg Tablet 250 Mg PO DAILY 04/28/19 Reported Multivitamins (Multivitamin) 1 Each Tablet 1 Tab PO DAILY 04/28/19 Reported Omeprazole 20 Mg Capsule.dr 20 Mg PO BID 04/28/19 Reported Tizanidine Hcl 4 Mg Tablet 4 Mg PO TID PRN 04/28/19 Reported Gabapentin (Gabapentin) 300 Mg Capsule 600 Mg PO TID 01/19/16 Reported Pravastatin Sodium 10 Mg Tablet 1 Tab PO DAILY 01/19/16 Reported Aspir 81 (Aspirin) 81 Mg Tablet.dr 1 Tab PO DAILY 01/19/16 Reported Morphine Sulfate 15 Mg Tablet 1 Tab PO BID 01/19/16 Reported Impression . ACUTE RESP FAILURE/ACUTE LUNG INJURY, ?PULM HEMO/POSSIBLE PNEUMONIA ADDED STEROIDS THIS AM AGREE WITH ID THANKS GIOVANNI WILLOUGHBY MD Apr 29, 2019 12:32
--- NOTE | 2019-04-29 13:15 | EKG ---
[facility] [address] [place] [address] Test Date: 2019-04-29 Test Time: 13:07:25 Pat Name: KIKI JOYNER Department: Room: 110 1 Gender: M [employer] Manager: JEFF : 1950 Requested By: GEORGE CAMARGO Order Number: [id number] Reading MD: Measurements Intervals [place] Rate: 69 P: 49 PA: 170 QRS: 0 QRSD: 98 T: 24 QT: 374 QTc: 402 Interpretive Statements SINUS RHYTHM LEFTWARD AXIS QRS(T) CONTOUR ABNORMALITY CONSIDER ANTEROSEPTAL MYOCARDIAL DAMAGE POSSIBLY ABNORMAL ECG RI6.01 Unconfirmed report No previous ECG available for comparison
--- NOTE | 2019-04-29 13:17 | PDOC ---
PROGRESS NOTES Chief Complaint Chief Complaint 1. NSTEMI: ACUTE witrh HYPOTENSIOn - on pressor 2. Hemoptysis 3. KAJAL - creat 4 now 1.6 Multifocal bilateral ground glass opacities and consolidations, greatest in the right lung and likely representing multifocal infection. 3. Hx of TB as child 4. CAD: 2 stents with last placed in 2012. [facility] 6. hyperlipidemia 7. Hx of bladder CA and left renal tumor resection 8. CKD: 9. hx of tobacco use, quit 10. hypothyroid on replacement 11. peripheral neuropathy History of Present Illness History of Present Illness Seen in icu ON pressor\NO CP no SOA< on face mask ECHo pending CReat down to 1,4 Kidney fcn precluded [facility] but now getting better Was taking ASA for CAD TILE GR[employer] TRAnsfer from [employer]? PLAN: CPM PRessor CAD meds Stool softner O2 support Avoid nephrotoxins Vitals Vitals Vital Signs Date Time Temp Pulse Resp B/P (MAP) Pulse Ox O2 Delivery O2 Flow Rate FiO2 04/29/19 12:00 98.9 72 116/59 (78) 99 Venturi Mask 98.9 04/29/19 12:00 15.0 04/29/19 10:00 16 Physical Exam General: Alert, Oriented X3, Cooperative, No acute distress Heart: Regular rate (SR), Other (distant heart sounds) Abdomen: Normal bowel sounds, Soft Extremities: No clubbing, No cyanosis Skin: No breakdown, No significant lesion Labs LABS Laboratory Tests Test 04/28/19 16:10 04/28/19 17:45 04/29/19 00:40 04/29/19 05:00 White Blood Count 9.8 x10^3/uL (4.0-11.0) 14.2 x10^3/uL (4.0-11.0) Red Blood Count 4.41 x10^6/uL (4.30-5.70) 3.88 x10^6/uL (4.30-5.70) Hemoglobin 13.4 g/dL (13.0-17.5) 11.9 g/dL (13.0-17.5) Hematocrit 39.8 % (39.0-53.0) 35.1 % (39.0-53.0) Mean Corpuscular Volume 90 fL (79-100) 90 fL (79-100) Mean Corpuscular Hemoglobin 30 pg (25-35) 31 pg (25-35) Mean Corpuscular Hemoglobin Concent 34 g/dL (31-37) 34 g/dL (31-37) Red Cell Distribution Width 13.9 % (11.5-14.5) 14.4 % (11.5-14.5) Platelet Count 116 x10^3/uL (140-400) 123 x10^3/uL (140-400) Prothrombin Time 15.6 SEC (11.7-14.0) Prothromb Time International Ratio 1.3 (0.8-1.1) Sodium Level 146 mmol/L (136-145) 143 mmol/L (136-145) Potassium Level 4.4 mmol/L (3.5-5.1) 4.6 mmol/L (3.5-5.1) Chloride Level 110 mmol/L (98-107) 107 mmol/L (98-107) Carbon Dioxide Level 26 mmol/L (21-32) 28 mmol/L (21-32) Anion Gap 10 (6-14) 8 (6-14) Blood Urea Nitrogen 28 mg/dL (8-26) 32 mg/dL (8-26) Creatinine 1.6 mg/dL (0.7-1.3) 1.7 mg/dL (0.7-1.3) Estimated GFR (Cockcroft-Gault) 43.2 40.3 Glucose Level 110 mg/dL (70-99) 121 mg/dL (70-99) Calcium Level 7.7 mg/dL (8.5-10.1) 7.3 mg/dL (8.5-10.1) Magnesium Level 0.8 mg/dL (1.8-2.4) 1.9 mg/dL (1.8-2.4) Troponin I Quantitative 8.706 ng/mL (0.000-0.055) 9.584 ng/mL (0.000-0.055) Heparin Anti-Xa Act, Unfractionated 0.28 IU/mL (0.30-0.70) 0.12 IU/mL (0.30-0.70) 0.44 IU/mL (0.30-0.70) Neutrophils (%) (Auto) 89 % (31-73) Lymphocytes (%) (Auto) 7 % (24-48) Monocytes (%) (Auto) 3 % (0-9) Eosinophils (%) (Auto) 1 % (0-3) Basophils (%) (Auto) 1 % (0-3) Neutrophils # (Auto) 12.6 x10^3/uL (1.8-7.7) Lymphocytes # (Auto) 1.0 x10^3/uL (1.0-4.8) Monocytes # (Auto) 0.5 x10^3/uL (0.0-1.1) Eosinophils # (Auto) 0.1 x10^3/uL (0.0-0.7) Basophils # (Auto) 0.1 x10^3/uL (0.0-0.2) Segmented Neutrophils % 55 % (35-66) Band Neutrophils % 29 % (0-9) Lymphocytes % 5 % (24-48) Monocytes % 4 % (0-10) Metamyelocytes % 5 % (0-0) Myelocytes % 2 % (0-0) Platelet Estimate Decreased (ADEQUATE) Large Platelets Occ Triglycerides Level 33 mg/dL (0-150) Cholesterol Level 64 mg/dL (0-200) LDL Cholesterol, Calculated 18 mg/dL (0-100) VLDL Cholesterol, Calculated 7 mg/dL (0-40) Non-HDL Cholesterol Calculated 25 mg/dL (0-129) HDL Cholesterol 39 mg/dL (40-60) Cholesterol/HDL Ratio 1.6 Test 04/29/19 08:18 04/29/19 09:30 04/29/19 12:05 O2 Saturation 92 % (92-99) Arterial Blood pH 7.40 (7.35-7.45) Arterial Blood pCO2 at Patient Temp 42 mmHg (35-46) Arterial Blood pO2 at Patient Temp 66 mmHg (65-108) Arterial Blood HCO3 25 mmol/L (21-28) Arterial Blood Base Excess 0 mmol/L (-3-3) FiO2 50 Urine Opiates Screen Pos (NEG) Urine Methadone Screen Neg (NEG) Urine Barbiturates Neg (NEG) Urine Phencyclidine Screen Neg (NEG) Urine Amphetamine/Methamphetamine Neg (NEG) Urine Benzodiazepines Screen Neg (NEG) Urine Cocaine Screen Neg (NEG) Urine Cannabinoids Screen Neg (NEG) Urine Ethyl Alcohol Neg (NEG) Heparin Anti-Xa Act, Unfractionated 0.30 IU/mL (0.30-0.70) Troponin I Quantitative 5.967 ng/mL (0.000-0.055) Review of Systems Review of Systems no cp, no soa, no fever, no headache, no abd pain, no n./v Assessment and Plan Assessmemt and Plan Problems Medical Problems: (1) CAD (coronary artery disease) Status: Chronic (2) CKD (chronic kidney disease) Status: Chronic (3) Hemoptysis Status: Acute (4) HLD (hyperlipidemia) Status: Chronic (5) HTN (hypertension) Status: Chronic (6) Hypothyroid Status: Chronic (7) NSTEMI (non-ST elevated myocardial infarction) Status: Acute (8) Peripheral neuropathy Status: Chronic Comment Review of Relevant I have reviewed the following items josseline (where applicable) has been applied. Labs Laboratory Tests Test 04/28/19 16:10 04/28/19 17:45 04/29/19 00:40 04/29/19 05:00 White Blood Count 9.8 x10^3/uL (4.0-11.0) 14.2 x10^3/uL (4.0-11.0) Red Blood Count 4.41 x10^6/uL (4.30-5.70) 3.88 x10^6/uL (4.30-5.70) Hemoglobin 13.4 g/dL (13.0-17.5) 11.9 g/dL (13.0-17.5) Hematocrit 39.8 % (39.0-53.0) 35.1 % (39.0-53.0) Mean Corpuscular Volume 90 fL (79-100) 90 fL (79-100) Mean Corpuscular Hemoglobin 30 pg (25-35) 31 pg (25-35) Mean Corpuscular Hemoglobin Concent 34 g/dL (31-37) 34 g/dL (31-37) Red Cell Distribution Width 13.9 % (11.5-14.5) 14.4 % (11.5-14.5) Platelet Count 116 x10^3/uL (140-400) 123 x10^3/uL (140-400) Prothrombin Time 15.6 SEC (11.7-14.0) Prothromb Time International Ratio 1.3 (0.8-1.1) Sodium Level 146 mmol/L (136-145) 143 mmol/L (136-145) Potassium Level 4.4 mmol/L (3.5-5.1) 4.6 mmol/L (3.5-5.1) Chloride Level 110 mmol/L (98-107) 107 mmol/L (98-107) Carbon Dioxide Level 26 mmol/L (21-32) 28 mmol/L (21-32) Anion Gap 10 (6-14) 8 (6-14) Blood Urea Nitrogen 28 mg/dL (8-26) 32 mg/dL (8-26) Creatinine 1.6 mg/dL (0.7-1.3) 1.7 mg/dL (0.7-1.3) Estimated GFR (Cockcroft-Gault) 43.2 40.3 Glucose Level 110 mg/dL (70-99) 121 mg/dL (70-99) Calcium Level 7.7 mg/dL (8.5-10.1) 7.3 mg/dL (8.5-10.1) Magnesium Level 0.8 mg/dL (1.8-2.4) 1.9 mg/dL (1.8-2.4) Troponin I Quantitative 8.706 ng/mL (0.000-0.055) 9.584 ng/mL (0.000-0.055) Heparin Anti-Xa Act, Unfractionated 0.28 IU/mL (0.30-0.70) 0.12 IU/mL (0.30-0.70) 0.44 IU/mL (0.30-0.70) Neutrophils (%) (Auto) 89 % (31-73) Lymphocytes (%) (Auto) 7 % (24-48) Monocytes (%) (Auto) 3 % (0-9) Eosinophils (%) (Auto) 1 % (0-3) Basophils (%) (Auto) 1 % (0-3) Neutrophils # (Auto) 12.6 x10^3/uL (1.8-7.7) Lymphocytes # (Auto) 1.0 x10^3/uL (1.0-4.8) Monocytes # (Auto) 0.5 x10^3/uL (0.0-1.1) Eosinophils # (Auto) 0.1 x10^3/uL (0.0-0.7) Basophils # (Auto) 0.1 x10^3/uL (0.0-0.2) Segmented Neutrophils % 55 % (35-66) Band Neutrophils % 29 % (0-9) Lymphocytes % 5 % (24-48) Monocytes % 4 % (0-10) Metamyelocytes % 5 % (0-0) Myelocytes % 2 % (0-0) Platelet Estimate Decreased (ADEQUATE) Large Platelets Occ Triglycerides Level 33 mg/dL (0-150) Cholesterol Level 64 mg/dL (0-200) LDL Cholesterol, Calculated 18 mg/dL (0-100) VLDL Cholesterol, Calculated 7 mg/dL (0-40) Non-HDL Cholesterol Calculated 25 mg/dL (0-129) HDL Cholesterol 39 mg/dL (40-60) Cholesterol/HDL Ratio 1.6 Test 04/29/19 08:18 04/29/19 09:30 04/29/19 12:05 O2 Saturation 92 % (92-99) Arterial Blood pH 7.40 (7.35-7.45) Arterial Blood pCO2 at Patient Temp 42 mmHg (35-46) Arterial Blood pO2 at Patient Temp 66 mmHg (65-108) Arterial Blood HCO3 25 mmol/L (21-28) Arterial Blood Base Excess 0 mmol/L (-3-3) FiO2 50 Urine Opiates Screen Pos (NEG) Urine Methadone Screen Neg (NEG) Urine Barbiturates Neg (NEG) Urine Phencyclidine Screen Neg (NEG) Urine Amphetamine/Methamphetamine Neg (NEG) Urine Benzodiazepines Screen Neg (NEG) Urine Cocaine Screen Neg (NEG) Urine Cannabinoids Screen Neg (NEG) Urine Ethyl Alcohol Neg (NEG) Heparin Anti-Xa Act, Unfractionated 0.30 IU/mL (0.30-0.70) Troponin I Quantitative 5.967 ng/mL (0.000-0.055) Laboratory Tests Test 04/28/19 16:10 04/28/19 17:45 04/29/19 00:40 04/29/19 05:00 White Blood Count 9.8 x10^3/uL (4.0-11.0) 14.2 x10^3/uL (4.0-11.0) Red Blood Count 4.41 x10^6/uL (4.30-5.70) 3.88 x10^6/uL (4.30-5.70) Hemoglobin 13.4 g/dL (13.0-17.5) 11.9 g/dL (13.0-17.5) Hematocrit 39.8 % (39.0-53.0) 35.1 % (39.0-53.0) Mean Corpuscular Volume 90 fL (79-100) 90 fL (79-100) Mean Corpuscular Hemoglobin 30 pg (25-35) 31 pg (25-35) Mean Corpuscular Hemoglobin Concent 34 g/dL (31-37) 34 g/dL (31-37) Red Cell Distribution Width 13.9 % (11.5-14.5) 14.4 % (11.5-14.5) Platelet Count 116 x10^3/uL (140-400) 123 x10^3/uL (140-400) Prothrombin Time 15.6 SEC (11.7-14.0) Prothromb Time International Ratio 1.3 (0.8-1.1) Sodium Level 146 mmol/L (136-145) 143 mmol/L (136-145) Potassium Level 4.4 mmol/L (3.5-5.1) 4.6 mmol/L (3.5-5.1) Chloride Level 110 mmol/L (98-107) 107 mmol/L (98-107) Carbon Dioxide Level 26 mmol/L (21-32) 28 mmol/L (21-32) Anion Gap 10 (6-14) 8 (6-14) Blood Urea Nitrogen 28 mg/dL (8-26) 32 mg/dL (8-26) Creatinine 1.6 mg/dL (0.7-1.3) 1.7 mg/dL (0.7-1.3) Estimated GFR (Cockcroft-Gault) 43.2 40.3 Glucose Level 110 mg/dL (70-99) 121 mg/dL (70-99) Calcium Level 7.7 mg/dL (8.5-10.1) 7.3 mg/dL (8.5-10.1) Magnesium Level 0.8 mg/dL (1.8-2.4) 1.9 mg/dL (1.8-2.4) Troponin I Quantitative 8.706 ng/mL (0.000-0.055) 9.584 ng/mL (0.000-0.055) Heparin Anti-Xa Act, Unfractionated 0.28 IU/mL (0.30-0.70) 0.12 IU/mL (0.30-0.70) 0.44 IU/mL (0.30-0.70) Neutrophils (%) (Auto) 89 % (31-73) Lymphocytes (%) (Auto) 7 % (24-48) Monocytes (%) (Auto) 3 % (0-9) Eosinophils (%) (Auto) 1 % (0-3) Basophils (%) (Auto) 1 % (0-3) Neutrophils # (Auto) 12.6 x10^3/uL (1.8-7.7) Lymphocytes # (Auto) 1.0 x10^3/uL (1.0-4.8) Monocytes # (Auto) 0.5 x10^3/uL (0.0-1.1) Eosinophils # (Auto) 0.1 x10^3/uL (0.0-0.7) Basophils # (Auto) 0.1 x10^3/uL (0.0-0.2) Segmented Neutrophils % 55 % (35-66) Band Neutrophils % 29 % (0-9) Lymphocytes % 5 % (24-48) Monocytes % 4 % (0-10) Metamyelocytes % 5 % (0-0) Myelocytes % 2 % (0-0) Platelet Estimate Decreased (ADEQUATE) Large Platelets Occ Triglycerides Level 33 mg/dL (0-150) Cholesterol Level 64 mg/dL (0-200) LDL Cholesterol, Calculated 18 mg/dL (0-100) VLDL Cholesterol, Calculated 7 mg/dL (0-40) Non-HDL Cholesterol Calculated 25 mg/dL (0-129) HDL Cholesterol 39 mg/dL (40-60) Cholesterol/HDL Ratio 1.6 Test 04/29/19 08:18 04/29/19 09:30 04/29/19 12:05 O2 Saturation 92 % (92-99) Arterial Blood pH 7.40 (7.35-7.45) Arterial Blood pCO2 at Patient Temp 42 mmHg (35-46) Arterial Blood pO2 at Patient Temp 66 mmHg (65-108) Arterial Blood HCO3 25 mmol/L (21-28) Arterial Blood Base Excess 0 mmol/L (-3-3) FiO2 50 Urine Opiates Screen Pos (NEG) Urine Methadone Screen Neg (NEG) Urine Barbiturates Neg (NEG) Urine Phencyclidine Screen Neg (NEG) Urine Amphetamine/Methamphetamine Neg (NEG) Urine Benzodiazepines Screen Neg (NEG) Urine Cocaine Screen Neg (NEG) Urine Cannabinoids Screen Neg (NEG) Urine Ethyl Alcohol Neg (NEG) Heparin Anti-Xa Act, Unfractionated 0.30 IU/mL (0.30-0.70) Troponin I Quantitative 5.967 ng/mL (0.000-0.055) Medications Current Medications Sodium Chloride 1,000 ml @ 100 mls/hr 1X ONCE IV Last administered on 04/28/19 17:41; Start 04/28/19 at 17:15; Stop 04/29/19 at 03:14; Status DC Heparin Sodium/ Dextrose 500 ml @ 0 mls/hr CONT PRN IV cvc protocol Last administered on 04/29/19 07:31; Start 04/28/19 at 17:15 Heparin Sodium (Porcine) (Heparin Sodium) 2,350 unit PRN Q6HRS PRN IV FOR UFH LEVEL LESS THAN 0.2 Last administered on 04/29/19 02:14; Start 04/28/19 at 17 :15 Info (Anti-Coagulation Monitoring By Pharmacy) 1 each PRN DAILY PRN MC SEE COMMENTS Last administered on 04/29/19 09:36; Start 04/28/19 at 17:30 Magnesium Sulfate/ Dextrose 100 ml @ 25 mls/hr 1X ONCE IV Last administered on 04/28/19 17:41; Start 04/28/19 at 18:00; Stop 04/28/19 at 21:59; Status DC Aspirin (Ecotrin) 81 mg DAILY PO Last administered on 04/29/19 09:44; Start 04/29/19 at 09:00 Gabapentin (Neurontin) 600 mg TID PO Last administered on 04/29/19 09:44; Start 04/28/19 at 21:00 Tizanidine HCl (Zanaflex) 4 mg PRN TID PRN PO MUSCLE SPASMS; Start 04/28/19 at 18:00 Calcium Carbonate/ Glycine (Oscal) 500 mg DAILY PO ; Start 04/29/19 at 09:00 Multivitamins (Thera M Plus) 1 tab DAILY PO Last administered on 04/29/19 09:44; Start 04/29/19 at 09:00 Pantoprazole Sodium (Protonix) 40 mg DAILYAC PO Last administered on 04/29/19 09:44; Start 04/29/19 at 07:30 Atorvastatin Calcium (Lipitor) 5 mg QHS PO Last administered on 04/28/19 21:01; Start 04/28/19 at 21:00 Morphine Sulfate (Ms Contin) 15 mg BID PO Last administered on 04/28/19 21:01; Start 04/28/19 at 21:00 Levothyroxine Sodium (Synthroid) 75 mcg DAILYAC PO Last administered on 04/29/19 09:44; Start 04/29/19 at 07:30 Non-Formulary Medication (Buprenorphine (Butrans)) 1 patch WEEKLY TP ; Start 05/05/19 at 09:00; Status UNV Carvedilol (Coreg) 25 mg BIDWMEALS PO Last administered on 04/28/19 21:01; Start 04/28/19 at 18:30 Sodium Chloride (Normal Saline Flush) 3 ml QSHIFT PRN IV AFTER MEDS AND BLOOD DRAWS; Start 04/28/19 at 18:15 Sodium Chloride 1,000 ml @ 100 mls/hr Q10H IV ; Start 04/28/19 at 18:05; Stop 04/29/19 at 01:59; Status DC Ondansetron HCl (Zofran) 4 mg PRN Q4HRS PRN IV NAUSEA/VOMITING; Start 04/28/19 at 18:15 Acetaminophen (Tylenol) 650 mg PRN Q4HRS PRN PO TEMP OVER 100.4F OR MILD PAIN; Start 04/28/19 at 18:15 Al Hydroxide/Mg Hydroxide (Mylanta Plus Xs) 30 ml PRN DAILY PRN PO HEARTBURN / GAS; Start 04/28/19 at 18:15 Clonidine HCl (Catapres) 0.1 mg PRN Q6HRS PRN PO SBP>160 OR DBP>90; Start 04/28/19 at 18:15 Sodium Monofluorophosphate (Fleet Adult) 133 ml PRN DAILY PRN GA CONSTIPATION; Start 04/28/19 at 18:15 Docusate Sodium (Colace) 100 mg PRN BID PRN PO CONSTIPATION; Start 04/28/19 at 18:15 Albuterol Sulfate (Ventolin Neb Soln) 2.5 mg PRN Q4HRS PRN NEB SHORTNESS OF BR EATH Last administered on 04/28/19at 23:29; Start 04/28/19 at 18:15 Guaifenesin (Robitussin) 200 mg PRN Q4HRS PRN PO COUGH; Start 04/28/19 at 18:15 Lorazepam (Ativan) 0.5 mg PRN Q4HRS PRN PO ANXIETY / AGITATION; Start 04/28/19 at 18:15 Dopamine HCl/ Dextrose 250 ml @ 10.643 mls/ hr 1X ONCE IV Last administered on 04/29/19at 02:22; Start 04/29/19 at 02:00; Stop 04/29/19 at 09:52; Status DC Sodium Chloride 1,000 ml @ 75 mls/hr [id number] IV Last administered on 04/29/19at 03:41; Start 04/29/19 at 02:00 Methylprednisolone Sodium Succinate (SOLU-Medrol 125MG VIAL) 125 mg 1X ONCE IV Last administered on 04/29/19at 07:20; Start 04/29/19 at 06:30; Stop 04/29/19 at 06:31; Status DC Methylprednisolone Sodium Succinate (SOLU-Medrol 125MG VIAL) 125 mg BID IV ; Start 04/29/19 at 21:00 Piperacillin Sod/ Tazobactam Sod 3.375 gm/Sodium Chloride 50 ml @ 100 mls/hr Q8HRS IV ; Start 04/29/19 at 14:00 Acetaminophen (Tylenol) 500 mg PRN Q6HRS PRN PO MILD PAIN / TEMP; Start 04/29/19 at 09:00 Acetaminophen/ Codeine Phosphate (Tylenol #3) 1 tab PRN Q6HRS PRN PO MODERATE PAIN; Start 04/29/19 at 09:00 Dopamine HCl/ Dextrose 250 ml @ 6.959 mls/ hr CONT PRN IV SEE I/O RECORD Last administered on 04/29/19at 10:00; Start 04/29/19 at 10:00 Active Scripts Active Reported Butrans (Buprenorphine) 1 Each Patch.tdwk 1 Patch TP WEEKLY Carvedilol 25 Mg Tablet 25 Mg PO BIDWMEALS Levothyroxine Sodium 75 Mcg Tablet 75 Mcg PO DAILYAC Calcium Citrate 250 Mg Tablet 250 Mg PO DAILY Multivitamins (Multivitamin) 1 Each Tablet 1 Tab PO DAILY Omeprazole 20 Mg Capsule. 20 Mg PO BID Tizanidine Hcl 4 Mg Tablet 4 Mg PO TID PRN Gabapentin (Gabapentin) 300 Mg Capsule 600 Mg PO TID Pravastatin Sodium 10 Mg Tablet 1 Tab PO DAILY Aspir 81 (Aspirin) 81 Mg Tablet. 1 Tab PO DAILY Morphine Sulfate 15 Mg Tablet 1 Tab PO BID Vitals/I & O Vital Sign - Last 24 Hours 04/28/19 04/28/19 04/28/19 04/28/19 15:06 19:00 20:00 20:00 Temp 98.6 98.6 98.6 98.6 Pulse 90 90 90 Resp 20 16 20 B/P (MAP) 105/70 (82) 92/51 (65) 94/51 (65) Pulse Ox 93 99 93 O2 Delivery Nasal Cannula Nasal Cannula Nasal Cannula Nasal Cannula O2 Flow Rate 4.0 4.0 4.0 4.0 04/28/19 04/28/19 04/28/19 04/28/19 20:41 21:00 21:01 21:01 Pulse 88 89 Resp 14 16 B/P (MAP) 110/63 (79) 110/63 Pulse Ox 91 93 93 O2 Delivery Nasal Cannula Nasal Cannula Nasal Cannula O2 Flow Rate 4.0 4.0 4.0 04/28/19 04/28/19 04/28/19 04/29/19 22:00 23:00 23:28 00:00 Pulse 88 84 Resp 15 18 B/P (MAP) 93/44 (60) 96/54 (68) Pulse Ox 89 90 94 O2 Delivery Nasal Cannula Nasal Cannula Venturi Mask Venturi Mask O2 Flow Rate 4.0 4.0 15.0 15.0 04/29/19 04/29/19 04/29/19 04/29/19 00:00 01:00 02:27 02:43 Temp 99.0 99.0 Pulse 80 78 78 75 Resp 20 20 20 20 B/P (MAP) 94/50 (65) 74/44 (54) 63/40 (48) 63/40 (48) Pulse Ox 99 95 95 90 O2 Delivery Venturi Mask Venturi Mask Venturi Mask Venturi Mask O2 Flow Rate 15.0 15.0 15.0 15.0 04/29/19 04/29/19 04/29/19 04/29/19 02:56 03:11 03:28 03:33 Pulse 76 77 79 Resp 16 17 16 B/P (MAP) 77/41 (53) 82/39 (53) 85/45 (58) Pulse Ox 90 89 92 94 O2 Delivery Venturi Mask Venturi Mask BiPAP/CPAP BiPAP/CPAP O2 Flow Rate 15.0 15.0 04/29/19 04/29/19 04/29/19 04/29/19 03:41 03:56 04:00 04:29 Temp 99.1 99.1 Pulse 75 78 Resp 18 16 16 B/P (MAP) 83/41 (55) 99/47 (64) Pulse Ox 90 94 94 O2 Delivery Nasal Cannula BiPAP/CPAP Bi-pap BiPAP/CPAP O2 Flow Rate 6.0 04/29/19 04/29/19 04/29/19 04/29/19 04:44 04:48 05:24 05:45 Pulse 76 77 74 78 Resp 16 16 16 16 B/P (MAP) 101/45 (63) 95/47 (63) 98/47 (64) 96/49 (65) Pulse Ox 95 93 92 93 O2 Delivery BiPAP/CPAP BiPAP/CPAP BiPAP/CPAP BiPAP/CPAP 04/29/19 04/29/19 04/29/19 04/29/19 05:55 06:30 07:00 07:00 Temp 98.9 98.9 Pulse 72 70 Resp 16 16 B/P (MAP) 98/49 (65) 90/45 (60) Pulse Ox 94 98 98 O2 Delivery BiPAP/CPAP BiPAP/CPAP BiPAP/CPAP O2 Flow Rate 15.0 04/29/19 04/29/19 04/29/19 04/29/19 08:00 08:00 08:18 08:49 Pulse 72 Resp 16 B/P (MAP) 118/52 (74) Pulse Ox 98 95 50 O2 Delivery Bi-pap BiPAP/CPAP BiPAP/CPAP O2 Flow Rate 15.0 04/29/19 04/29/19 04/29/19 04/29/19 09:00 09:10 10:00 11:02 Temp 98.9 98.9 Pulse 68 72 72 Resp 16 16 B/P (MAP) 124/56 (78) 86/49 (61) 116/59 (78) Pulse Ox 98 95 98 98 O2 Delivery BiPAP/CPAP BiPAP/CPAP BiPAP/CPAP BiPAP/CPAP 04/29/19 04/29/19 04/29/19 04/29/19 11:35 11:47 12:00 12:00 Temp 98.9 98.9 Pulse 72 B/P (MAP) 116/59 (78) Pulse Ox 99 99 O2 Delivery BiPAP/CPAP Venturi Mask Venturi Mask O2 Flow Rate 15.0 15.0 Intake and Output 04/28/19 04/28/19 04/29/19 15:00 23:00 07:00 Intake Total 180 ml 684.9 ml Output Total 325 ml 0 ml Balance -145 ml 684.9 ml BLANCA WRIGHT MD Apr 29, 2019 13:17
[2019-04-29] MEDS: PIPERACILLIN/TAZOBACTAM 3.375 GM in IV NORMAL SALINE 50ML 50 ML IV SCH ×2 (13:47→21:36)
--- NOTE | 2019-04-29 15:49 | CARD ---
MR#: [id number] Date of Study: 04/28/2019 Ordering Physician: RAMÍREZ MOTTA, Referring Physician: RAMÍREZ MOTTA, Tech: Evy Ladd APPROVED REPORT EXAM: Two-dimensional and M-mode echocardiogram with Doppler and color Doppler. Other Information Quality : AverageHR: 91bpm INDICATION Dyspnea Cardiac Disease: CAD Chest Pain Congestive Heart Failure Elevated Troponin RISK FACTORS Hypertension Hyperlipidemia 2D DIMENSIONS RVDd3.8 (2.9-3.5cm)Left Atrium(2D)3.2 (1.6-4.0cm) IVSd1.4 (0.7-1.1cm)Aortic Root(2D)3.5 (2.0-3.7cm) LVDd5.4 (3.9-5.9cm)LVOT Diameter2.1 (1.8-2.4cm) PWd1.1 (0.7-1.1cm)LVDs3.7 (2.5-4.0cm) FS (%) 30.2 %SV79.4 ml LVEF(%)57.1 (>50%) Aortic Valve AoV Peak Paolo.137.3cm/sAoV VTI26.4cm AO Peak GR.7.5mmHgLVOT VTI 19.63cm AO Mean GR.5mmHg Mitral Valve MV E Vsdzahrr19.3cm/sMV DECEL [id number] MV A Zwlebjgv49.1cm/sE/A Ratio0.9 TDI Lateral E' P. V6.89cm/sMedial E' P. V6.31cm/s E/Lateral E'12.4E/Medial E'13.5 Tricuspid Valve TR P. [id number]/sRAP [id number] TR Peak Gr.[id number] Pulmonary Vein S1 Nfowodsk55.6cm/sS2 Qjhebzlo31.53cm/s D2 Eipdadga80.5cm/sPVa [id number] LEFT VENTRICLE The left ventricle is normal size. There is mild concentric left ventricular hypertrophy. The left ve ntricular systolic function is normal and the ejection fraction is within normal range. The Ejection Fraction is 50-55%. There is normal LV segmental wall motion. Transmitral Doppler flow pattern is Gra de I-abnormal relaxation pattern. RIGHT VENTRICLE The right ventricle is normal size. There is normal right ventricular wall thickness. The right ventr icular systolic function is normal. ATRIA The left atrium size is normal. The right atrium is borderline dilated. The interatrial septum is int act with no evidence for an atrial septal defect or patent foramen ovale as noted on 2-D or Doppler i maging. AORTIC VALVE The aortic valve is normal in structure and function. Doppler and Color Flow revealed no significant aortic regurgitation. There is no significant aortic valvular stenosis. MITRAL VALVE The mitral valve is normal in structure and function. There is no evidence of mitral valve prolapse. There is no mitral valve stenosis. Doppler and Color-flow revealed trace mitral regurgitation. TRICUSPID VALVE The tricuspid valve is normal in structure and function. Doppler and Color Flow revealed trace tricus pid regurgitation with an estimated PAP of 35 mmHg. There is no tricuspid valve prolapse or vegetatio n. There is no tricuspid valve stenosis. PULMONIC VALVE The pulmonic valve is not well visualized. Doppler and Color Flow revealed trace pulmonic valvular re gurgitation. GREAT VESSELS The aortic root is normal in size. The IVC is dilated and collapses >50% with inspiration. PERICARDIAL EFFUSION There is no evidence of significant pericardial effusion. Critical Notification Critical Value: No <Conclusion> The left ventricle is normal size. The left ventricular systolic function is normal and the ejection fraction is within normal range. The Ejection Fraction is 50-55%. There is mild concentric left ventricular hypertrophy. There is no significant aortic valvular stenosis. Doppler and Color Flow revealed no significant aortic regurgitation. Doppler and Color-flow revealed trace mitral regurgitation. Doppler and Color Flow revealed trace tricuspid regurgitation with an estimated PAP of 35 mmHg. Signed by : Ramírez Motta MD Electronically Approved : 04/29/2019 15:49:16
--- NOTE | 2019-04-29 21:05 | CONS ---
DATE OF CONSULTATION: 04/29/2019 ATTENDING PHYSICIAN: Harley Jacques MD. REASON FOR CONSULTATION: The patient seen in pulmonary consultation at the request of Dr. Jacques for acute respiratory failure, hypoxemia. HISTORY OF PRESENT ILLNESS: The patient is a 69-year-old, admitted with complaints of shortness of air and chest pain. He was admitted initially to [facility] for renal failure with a history of renal cell tumor, status post resection. He also had bladder cancer. He was treated with fluids. He progressed to be unsteady on his feet. He was admitted to the hospital with episodes of hemoptysis, bringing up bright red blood at times mixed in with some mucus. He had a CT chest, which reportedly showed ground-glass opacities. I have not been able to review the film myself, the system is down currently. The report indicates multifocal bilateral ground-glass opacities, greater on the right than the left. The patient denies any episodes of emesis. No fever, chills or night sweats. He denies inhalation of any toxic fumes or dust. He has been seen by the Infectious Disease Service and started on Zosyn for possible healthcare-acquired pneumonia. PAST MEDICAL HISTORY: Remarkable for coronary artery disease, hypertension, and hyperlipidemia. He has had TB exposure at the age of 11, not sure exactly if he was given prophylaxis or treated. He has a history of renal cell carcinoma, osteoarthritis, chronic low back pain. PAST SURGICAL HISTORY: Status post cataract removal. He has had previous PCI and stent, renal cell tumor resection, gastric surgery, vasectomy. FAMILY HISTORY: Coronary artery disease. SOCIAL HISTORY: He quit tobacco in 1980. Denies any current use of alcohol. ALLERGIES: No known drug allergies listed. REVIEW OF SYSTEMS: As indicated above, otherwise other systems could not be adequately reviewed. The patient is on BiPAP. He had a previous arterial blood gas revealing the pH of 7.40, PaCO2 of 42, pO2 of 66. CURRENT MEDICATION: List was reviewed. PHYSICAL EXAMINATION: VITAL SIGNS: T-max since admission was 99.1. He is currently on BiPAP. HEENT: Eyes: The sclerae were nonicteric. NECK: Jugular venous distention was not elevated. No lymphadenopathy. CHEST: Full expansion. LUNGS: Adequate airway flow with some scattered rhonchi. CARDIOVASCULAR: Regular rate and rhythm with S1, S2, no S3. ABDOMEN: Soft, nontender, nondistended. EXTREMITIES: No clubbing, cyanosis or edema. NEUROLOGIC: The patient was awake, alert, following commands. A detailed neuro exam was not performed. LABORATORY DATA: Labs were reviewed. White count was elevated. Hemoglobin and hematocrit were noted. Hemoglobin was initially 13, down to 11.9. INR was 1.3. Electrolytes were deranged. BUN and creatinine were elevated. BNP was elevated. Toxicology screen was positive for opiates. Chest x-ray today revealed bilateral airspace opacities. IMPRESSION: 1. Acute respiratory failure, multifactorial. 2. Abnormal CT revealing ground-glass opacities, compatible with acute lung injury. 3. Possible pneumonia, gram-negative and gram-positive. 4. Coronary artery disease, status post stent placement in 2012. 5. Hemoptysis, secondary to ground-glass opacities, compatible with acute lung injury. 6. History of tuberculosis, details unknown. 7. Tobacco dependent, in remission. 8. Chronic obstructive pulmonary disease. 9. History of bladder cancer and renal cell tumor resection. 10. Chronic kidney disease. PLAN: 1. I concur with current empiric antibiotics. 2. The patient was started on steroids earlier this morning. 3. We will follow clinical course and make further recommendations. 4. Repeat CT chest in 2 months. 5. We will monitor for further hemoptysis, suspect acute pulmonary hemorrhage versus acute lung injury resulting in hemoptysis. I do appreciate the privilege in sharing in the patient's care. GIOVANNI WILLOUGHBY MD DR: DEJAN/pam JOB#: [id number] / [id number]
[2019-04-29] MEDS: ATORVASTATIN CALCIUM 10 MG TABLET. PO SCH (21:06)
[2019-04-29] MEDS: methylPREDNISolone SOD SUCC PF 125 MG/2 ML VIAL. IV SCH (21:06)
[2019-04-30] VITALS (26 sets, daily range): BP systolic 67–139; BP diastolic 36–76
[2019-04-30] MEDS: DOCUSATE SODIUM 100 MG CAPSULE. PO PRN ×2 (05:13→21:12)
[2019-04-30] MEDS: PIPERACILLIN/TAZOBACTAM 3.375 GM in IV NORMAL SALINE 50ML 50 ML IV SCH ×3 (05:14→21:37)
[2019-04-30 06:30] LABS: CREATININE 1.5 mg/dL (0.7-1.3); GFR 46.5; POTASSIUM 3.9 mmol/L (3.5-5.1)
[2019-04-30 06:32] LABS: BASO % 0 % (0-3); EOS % 0 % (0-3); HEMATOCRIT 36.1 % (39.0-53.0); HEMOGLOBIN 12.1 g/dL (13.0-17.5); LYMPH # 0.5 x10^3/uL (1.0-4.8); LYMPH % 4 % (24-48); MEAN CORPUSCULAR HEMOGLOBIN 30 pg (25-35); MEAN CORPUSCULAR HGB CONC 34 g/dL (31-37); MEAN CORPUSCULAR VOLUME 90 fL (79-100); MONO # 0.3 x10^3/uL (0.0-1.1); MONO % 3 % (0-9); NEUT # 12.2 x10^3/uL (1.8-7.7); NEUT % 94 % (31-73); PLATELET COUNT 106 x10^3/uL (140-400); RED BLOOD COUNT 4.02 x10^6/uL (4.30-5.70); RED CELL DISTRIBUTION WIDTH 14.2 % (11.5-14.5); WHITE BLOOD COUNT 13.1 x10^3/uL (4.0-11.0)
[2019-04-30] MEDS: CARVEDILOL 12.5 MG TABLET. PO SCH ×2 (08:00→16:04)
[2019-04-30] MEDS: HEPARIN for IV BOLUS 10,000 UNIT/10 ML VIAL. IV PRN (08:16)
--- NOTE | 2019-04-30 08:17 | PDOC ---
Infectious Disease Note Subjective Subjective pt is feeling better ROS ROS no n/v/d/sob Vital Sign Vital Signs Vital Signs Date Time Temp Pulse Resp B/P (MAP) Pulse Ox O2 Delivery O2 Flow Rate FiO2 04/30/19 06:00 51 126/64 (84) 93 Room Air 04/30/19 04:00 97.9 97.9 04/30/19 03:44 18 3.0 Physical Exam PHYSICAL EXAM GENERAL: Alert and oriented gentleman, not in distress. VITAL SIGNS: Stable HEENT: NAD. NECK: Supple, no JVP, no lymphadenopathy. LUNGS: Clear. HEART: S1, S2 regular. ABDOMEN: Benign. EXTREMITIES: No edema, cyanosis. SKIN: Unremarkable. NEUROLOGIC: Alert, awake and appropriate. No focal neurologic deficit. Labs Lab Laboratory Tests Test 04/29/19 08:18 04/29/19 09:30 04/29/19 12:05 04/30/19 05:45 O2 Saturation 92 % (92-99) Arterial Blood pH 7.40 (7.35-7.45) Arterial Blood pCO2 at Patient Temp 42 mmHg (35-46) Arterial Blood pO2 at Patient Temp 66 mmHg (65-108) Arterial Blood HCO3 25 mmol/L (21-28) Arterial Blood Base Excess 0 mmol/L (-3-3) FiO2 50 Urine Opiates Screen Pos (NEG) Urine Methadone Screen Neg (NEG) Urine Barbiturates Neg (NEG) Urine Phencyclidine Screen Neg (NEG) Urine Amphetamine/Methamphetamine Neg (NEG) Urine Benzodiazepines Screen Neg (NEG) Urine Cocaine Screen Neg (NEG) Urine Cannabinoids Screen Neg (NEG) Urine Ethyl Alcohol Neg (NEG) Heparin Anti-Xa Act, Unfractionated 0.30 IU/mL (0.30-0.70) 0.15 IU/mL (0.30-0.70) Troponin I Quantitative 5.967 ng/mL (0.000-0.055) White Blood Count 13.1 x10^3/uL (4.0-11.0) Red Blood Count 4.02 x10^6/uL (4.30-5.70) Hemoglobin 12.1 g/dL (13.0-17.5) Hematocrit 36.1 % (39.0-53.0) Mean Corpuscular Volume 90 fL (79-100) Mean Corpuscular Hemoglobin 30 pg (25-35) Mean Corpuscular Hemoglobin Concent 34 g/dL (31-37) Red Cell Distribution Width 14.2 % (11.5-14.5) Platelet Count 106 x10^3/uL (140-400) Neutrophils (%) (Auto) 94 % (31-73) Lymphocytes (%) (Auto) 4 % (24-48) Monocytes (%) (Auto) 3 % (0-9) Eosinophils (%) (Auto) 0 % (0-3) Basophils (%) (Auto) 0 % (0-3) Neutrophils # (Auto) 12.2 x10^3/uL (1.8-7.7) Lymphocytes # (Auto) 0.5 x10^3/uL (1.0-4.8) Monocytes # (Auto) 0.3 x10^3/uL (0.0-1.1) Eosinophils # (Auto) 0.0 x10^3/uL (0.0-0.7) Basophils # (Auto) 0.0 x10^3/uL (0.0-0.2) Sodium Level 141 mmol/L (136-145) Potassium Level 3.9 mmol/L (3.5-5.1) Chloride Level 105 mmol/L (98-107) Carbon Dioxide Level 25 mmol/L (21-32) Anion Gap 11 (6-14) Blood Urea Nitrogen 34 mg/dL (8-26) Creatinine 1.5 mg/dL (0.7-1.3) Estimated GFR (Cockcroft-Gault) 46.5 Glucose Level 197 mg/dL (70-99) Calcium Level 8.0 mg/dL (8.5-10.1) Micro culture neg Objective Assessment Pneumonia/CHF KAJAL Troponin leak Leukocytosis Recent hospitalization Plan Plan of Care bc sputum culture zosyn supportive care cardiac cath pending MOHIT CALLAHAN MD Apr 30, 2019 08:17
[2019-04-30] MEDS: IV NORMAL SALINE 1000ML BAG 1,000 ML IV SCH ×2 (09:20→18:00)
[2019-04-30] MEDS: methylPREDNISolone SOD SUCC PF 125 MG/2 ML VIAL. IV SCH ×2 (09:21→21:14)
[2019-04-30] MEDS: PANTOPRAZOLE 40 MG TABLET.DR. PO SCH (09:21)
[2019-04-30] MEDS: MULTIVITAMIN with MINERAL TABLET. PO SCH (09:21)
[2019-04-30] MEDS: LEVOTHYROXINE 75 MCG TABLET PO SCH (09:21)
[2019-04-30] MEDS: ASPIRIN ENTERIC COATED 81 MG TABLET.DR. PO SCH (09:21)
[2019-04-30] MEDS: CALCIUM CARBONATE 500 MG TABLET PO SCH (09:21)
[2019-04-30] MEDS: MORPHINE ER 15 MG TABLET.ER PO SCH ×2 (09:21→21:13)
[2019-04-30] MEDS: GABAPENTIN 300 MG CAPSULE. PO SCH ×3 (09:21→21:12)
--- NOTE | 2019-04-30 09:21 | NUR ---
SS following for discharge planning. SS reviewed pt chart. Pt is from home with spouse and is currently on room air. No discharge needs noted at this time. SS will continue to follow for discharge planning.
--- NOTE | 2019-04-30 10:40 | PDOC ---
PROGRESS NOTES Chief Complaint Chief Complaint 1. NSTEMI: 2. HYPOTENSIOn - on pressor 2. Hemoptysis , resolved 3. KAJAL - creat 4 now 1.6 Multifocal bilateral ground glass opacities and consolidations, greatest in the right lung and likely representing multifocal infection. 3. Hx of TB as child 4. CAD: 2 stents with last placed in 2012. [facility] 6. hyperlipidemia 7. Hx of bladder CA and left renal tumor resection 8. CKD: 9. hx of tobacco use, quit 10. hypothyroid on replacement 11. peripheral neuropathy History of Present Illness History of Present Illness Seen in icu, he has no complaints still on dopa gtt On heparin gt trop 5, peaked at 9 CREat 1.4 from 4, renal and cards on board came from [place]? Tobaccoism hx PLAN: CPM icu bec still on pressor CAD meds Stool softener O2 support Avoid nephrotoxins LHC timing per cards Vitals Vitals Vital Signs Date Time Temp Pulse Resp B/P (MAP) Pulse Ox O2 Delivery O2 Flow Rate FiO2 04/30/19 09:22 93 Room Air 3.0 04/30/19 06:00 51 126/64 (84) 04/30/19 04:00 97.9 97.9 04/30/19 03:44 18 Physical Exam Physical Exam GENERAL: Alert and oriented gentleman, not in distress. VITAL SIGNS: Stable HEENT: NAD. NECK: Supple, no JVP, no lymphadenopathy. LUNGS: Clear. HEART: S1, S2 regular. ABDOMEN: Benign. EXTREMITIES: No edema, cyanosis. SKIN: Unremarkable. NEUROLOGIC: Alert, awake and appropriate. No focal neurologic deficit. General: Alert, Oriented X3, Cooperative, No acute distress Heart: Regular rate (SR), Other (distant heart sounds) Abdomen: Normal bowel sounds, Soft Extremities: No clubbing, No cyanosis Skin: No breakdown, No significant lesion Labs LABS Laboratory Tests Test 04/29/19 12:05 04/30/19 05:45 Heparin Anti-Xa Act, Unfractionated 0.30 IU/mL (0.30-0.70) 0.15 IU/mL (0.30-0.70) Troponin I Quantitative 5.967 ng/mL (0.000-0.055) White Blood Count 13.1 x10^3/uL (4.0-11.0) Red Blood Count 4.02 x10^6/uL (4.30-5.70) Hemoglobin 12.1 g/dL (13.0-17.5) Hematocrit 36.1 % (39.0-53.0) Mean Corpuscular Volume 90 fL (79-100) Mean Corpuscular Hemoglobin 30 pg (25-35) Mean Corpuscular Hemoglobin Concent 34 g/dL (31-37) Red Cell Distribution Width 14.2 % (11.5-14.5) Platelet Count 106 x10^3/uL (140-400) Neutrophils (%) (Auto) 94 % (31-73) Lymphocytes (%) (Auto) 4 % (24-48) Monocytes (%) (Auto) 3 % (0-9) Eosinophils (%) (Auto) 0 % (0-3) Basophils (%) (Auto) 0 % (0-3) Neutrophils # (Auto) 12.2 x10^3/uL (1.8-7.7) Lymphocytes # (Auto) 0.5 x10^3/uL (1.0-4.8) Monocytes # (Auto) 0.3 x10^3/uL (0.0-1.1) Eosinophils # (Auto) 0.0 x10^3/uL (0.0-0.7) Basophils # (Auto) 0.0 x10^3/uL (0.0-0.2) Sodium Level 141 mmol/L (136-145) Potassium Level 3.9 mmol/L (3.5-5.1) Chloride Level 105 mmol/L (98-107) Carbon Dioxide Level 25 mmol/L (21-32) Anion Gap 11 (6-14) Blood Urea Nitrogen 34 mg/dL (8-26) Creatinine 1.5 mg/dL (0.7-1.3) Estimated GFR (Cockcroft-Gault) 46.5 Glucose Level 197 mg/dL (70-99) Calcium Level 8.0 mg/dL (8.5-10.1) Review of Systems Review of Systems no cp, no soa, no abd pain, no n.v.d, no fevers Assessment and Plan Assessmemt and Plan Problems Medical Problems: (1) CAD (coronary artery disease) Status: Chronic (2) CKD (chronic kidney disease) Status: Chronic (3) Hemoptysis Status: Acute (4) HLD (hyperlipidemia) Status: Chronic (5) HTN (hypertension) Status: Chronic (6) Hypothyroid Status: Chronic (7) NSTEMI (non-ST elevated myocardial infarction) Status: Acute (8) Peripheral neuropathy Status: Chronic Comment Review of Relevant I have reviewed the following items josseline (where applicable) has been applied. Labs Laboratory Tests Test 04/28/19 16:10 04/28/19 17:45 04/29/19 00:40 04/29/19 05:00 White Blood Count 9.8 x10^3/uL (4.0-11.0) 14.2 x10^3/uL (4.0-11.0) Red Blood Count 4.41 x10^6/uL (4.30-5.70) 3.88 x10^6/uL (4.30-5.70) Hemoglobin 13.4 g/dL (13.0-17.5) 11.9 g/dL (13.0-17.5) Hematocrit 39.8 % (39.0-53.0) 35.1 % (39.0-53.0) Mean Corpuscular Volume 90 fL (79-100) 90 fL (79-100) Mean Corpuscular Hemoglobin 30 pg (25-35) 31 pg (25-35) Mean Corpuscular Hemoglobin Concent 34 g/dL (31-37) 34 g/dL (31-37) Red Cell Distribution Width 13.9 % (11.5-14.5) 14.4 % (11.5-14.5) Platelet Count 116 x10^3/uL (140-400) 123 x10^3/uL (140-400) Prothrombin Time 15.6 SEC (11.7-14.0) Prothromb Time International Ratio 1.3 (0.8-1.1) Sodium Level 146 mmol/L (136-145) 143 mmol/L (136-145) Potassium Level 4.4 mmol/L (3.5-5.1) 4.6 mmol/L (3.5-5.1) Chloride Level 110 mmol/L (98-107) 107 mmol/L (98-107) Carbon Dioxide Level 26 mmol/L (21-32) 28 mmol/L (21-32) Anion Gap 10 (6-14) 8 (6-14) Blood Urea Nitrogen 28 mg/dL (8-26) 32 mg/dL (8-26) Creatinine 1.6 mg/dL (0.7-1.3) 1.7 mg/dL (0.7-1.3) Estimated GFR (Cockcroft-Gault) 43.2 40.3 Glucose Level 110 mg/dL (70-99) 121 mg/dL (70-99) Calcium Level 7.7 mg/dL (8.5-10.1) 7.3 mg/dL (8.5-10.1) Magnesium Level 0.8 mg/dL (1.8-2.4) 1.9 mg/dL (1.8-2.4) Troponin I Quantitative 8.706 ng/mL (0.000-0.055) 9.584 ng/mL (0.000-0.055) Heparin Anti-Xa Act, Unfractionated 0.28 IU/mL (0.30-0.70) 0.12 IU/mL (0.30-0.70) 0.44 IU/mL (0.30-0.70) Neutrophils (%) (Auto) 89 % (31-73) Lymphocytes (%) (Auto) 7 % (24-48) Monocytes (%) (Auto) 3 % (0-9) Eosinophils (%) (Auto) 1 % (0-3) Basophils (%) (Auto) 1 % (0-3) Neutrophils # (Auto) 12.6 x10^3/uL (1.8-7.7) Lymphocytes # (Auto) 1.0 x10^3/uL (1.0-4.8) Monocytes # (Auto) 0.5 x10^3/uL (0.0-1.1) Eosinophils # (Auto) 0.1 x10^3/uL (0.0-0.7) Basophils # (Auto) 0.1 x10^3/uL (0.0-0.2) Segmented Neutrophils % 55 % (35-66) Band Neutrophils % 29 % (0-9) Lymphocytes % 5 % (24-48) Monocytes % 4 % (0-10) Metamyelocytes % 5 % (0-0) Myelocytes % 2 % (0-0) Platelet Estimate Decreased (ADEQUATE) Large Platelets Occ Triglycerides Level 33 mg/dL (0-150) Cholesterol Level 64 mg/dL (0-200) LDL Cholesterol, Calculated 18 mg/dL (0-100) VLDL Cholesterol, Calculated 7 mg/dL (0-40) Non-HDL Cholesterol Calculated 25 mg/dL (0-129) HDL Cholesterol 39 mg/dL (40-60) Cholesterol/HDL Ratio 1.6 Test 04/29/19 08:18 04/29/19 09:30 04/29/19 12:05 04/30/19 05:45 O2 Saturation 92 % (92-99) Arterial Blood pH 7.40 (7.35-7.45) Arterial Blood pCO2 at Patient Temp 42 mmHg (35-46) Arterial Blood pO2 at Patient Temp 66 mmHg (65-108) Arterial Blood HCO3 25 mmol/L (21-28) Arterial Blood Base Excess 0 mmol/L (-3-3) FiO2 50 Urine Opiates Screen Pos (NEG) Urine Methadone Screen Neg (NEG) Urine Barbiturates Neg (NEG) Urine Phencyclidine Screen Neg (NEG) Urine Amphetamine/Methamphetamine Neg (NEG) Urine Benzodiazepines Screen Neg (NEG) Urine Cocaine Screen Neg (NEG) Urine Cannabinoids Screen Neg (NEG) Urine Ethyl Alcohol Neg (NEG) Heparin Anti-Xa Act, Unfractionated 0.30 IU/mL (0.30-0.70) 0.15 IU/mL (0.30-0.70) Troponin I Quantitative 5.967 ng/mL (0.000-0.055) White Blood Count 13.1 x10^3/uL (4.0-11.0) Red Blood Count 4.02 x10^6/uL (4.30-5.70) Hemoglobin 12.1 g/dL (13.0-17.5) Hematocrit 36.1 % (39.0-53.0) Mean Corpuscular Volume 90 fL (79-100) Mean Corpuscular Hemoglobin 30 pg (25-35) Mean Corpuscular Hemoglobin Concent 34 g/dL (31-37) Red Cell Distribution Width 14.2 % (11.5-14.5) Platelet Count 106 x10^3/uL (140-400) Neutrophils (%) (Auto) 94 % (31-73) Lymphocytes (%) (Auto) 4 % (24-48) Monocytes (%) (Auto) 3 % (0-9) Eosinophils (%) (Auto) 0 % (0-3) Basophils (%) (Auto) 0 % (0-3) Neutrophils # (Auto) 12.2 x10^3/uL (1.8-7.7) Lymphocytes # (Auto) 0.5 x10^3/uL (1.0-4.8) Monocytes # (Auto) 0.3 x10^3/uL (0.0-1.1) Eosinophils # (Auto) 0.0 x10^3/uL (0.0-0.7) Basophils # (Auto) 0.0 x10^3/uL (0.0-0.2) Sodium Level 141 mmol/L (136-145) Potassium Level 3.9 mmol/L (3.5-5.1) Chloride Level 105 mmol/L (98-107) Carbon Dioxide Level 25 mmol/L (21-32) Anion Gap 11 (6-14) Blood Urea Nitrogen 34 mg/dL (8-26) Creatinine 1.5 mg/dL (0.7-1.3) Estimated GFR (Cockcroft-Gault) 46.5 Glucose Level 197 mg/dL (70-99) Calcium Level 8.0 mg/dL (8.5-10.1) Laboratory Tests Test 04/29/19 12:05 04/30/19 05:45 Heparin Anti-Xa Act, Unfractionated 0.30 IU/mL (0.30-0.70) 0.15 IU/mL (0.30-0.70) Troponin I Quantitative 5.967 ng/mL (0.000-0.055) White Blood Count 13.1 x10^3/uL (4.0-11.0) Red Blood Count 4.02 x10^6/uL (4.30-5.70) Hemoglobin 12.1 g/dL (13.0-17.5) Hematocrit 36.1 % (39.0-53.0) Mean Corpuscular Volume 90 fL (79-100) Mean Corpuscular Hemoglobin 30 pg (25-35) Mean Corpuscular Hemoglobin Concent 34 g/dL (31-37) Red Cell Distribution Width 14.2 % (11.5-14.5) Platelet Count 106 x10^3/uL (140-400) Neutrophils (%) (Auto) 94 % (31-73) Lymphocytes (%) (Auto) 4 % (24-48) Monocytes (%) (Auto) 3 % (0-9) Eosinophils (%) (Auto) 0 % (0-3) Basophils (%) (Auto) 0 % (0-3) Neutrophils # (Auto) 12.2 x10^3/uL (1.8-7.7) Lymphocytes # (Auto) 0.5 x10^3/uL (1.0-4.8) Monocytes # (Auto) 0.3 x10^3/uL (0.0-1.1) Eosinophils # (Auto) 0.0 x10^3/uL (0.0-0.7) Basophils # (Auto) 0.0 x10^3/uL (0.0-0.2) Sodium Level 141 mmol/L (136-145) Potassium Level 3.9 mmol/L (3.5-5.1) Chloride Level 105 mmol/L (98-107) Carbon Dioxide Level 25 mmol/L (21-32) Anion Gap 11 (6-14) Blood Urea Nitrogen 34 mg/dL (8-26) Creatinine 1.5 mg/dL (0.7-1.3) Estimated GFR (Cockcroft-Gault) 46.5 Glucose Level 197 mg/dL (70-99) Calcium Level 8.0 mg/dL (8.5-10.1) Medications Current Medications Sodium Chloride 1,000 ml @ 100 mls/hr 1X ONCE IV Last administered on 04/28/19 17:41; Start 04/28/19 at 17:15; Stop 04/29/19 at 03:14; Status DC Heparin Sodium/ Dextrose 500 ml @ 0 mls/hr CONT PRN IV cvc protocol Last administered on 04/29/19 23:15; Start 04/28/19 at 17:15 Heparin Sodium (Porcine) (Heparin Sodium) 2,350 unit PRN Q6HRS PRN IV FOR UFH LEVEL LESS THAN 0.2 Last administered on 04/30/19 08:16; Start 04/28/19 at 17:15 Info (Anti-Coagulation Monitoring By Pharmacy) 1 each PRN DAILY PRN MC SEE COMMENTS Last administered on 04/29/19 09:36; Start 04/28/19 at 17:30 Magnesium Sulfate/ Dextrose 100 ml @ 25 mls/hr 1X ONCE IV Last administered on 04/28/19 17:41; Start 04/28/19 at 18:00; Stop 04/28/19 at 21:59; Status DC Aspirin (Ecotrin) 81 mg DAILY PO Last administered on 04/30/19 09:22; Start 04/29/19 at 09:00 Gabapentin (Neurontin) 600 mg TID PO Last administered on 04/30/19 09:22; Start 04/28/19 at 21:00 Tizanidine HCl (Zanaflex) 4 mg PRN TID PRN PO MUSCLE SPASMS; Start 04/28/19 at 18:00 Calcium Carbonate/ Glycine (Oscal) 500 mg DAILY PO Last administered on 04/30/19 09:22; Start 04/29/19 at 09:00 Multivitamins (Thera M Plus) 1 tab DAILY PO Last administered on 04/30/19 09:22; Start 04/29/19 at 09:00 Pantoprazole Sodium (Protonix) 40 mg DAILYAC PO Last administered on 04/30/19 09:22; Start 04/29/19 at 07:30 Atorvastatin Calcium (Lipitor) 5 mg QHS PO Last administered on 04/29/19 21:08; Start 04/28/19 at 21:00 Morphine Sulfate (Ms Contin) 15 mg BID PO Last administered on 04/30/19 09:22; Start 04/28/19 at 21:00 Levothyroxine Sodium (Synthroid) 75 mcg DAILYAC PO Last administered on 04/30/19 09:22; Start 04/29/19 at 07:30 Non-Formulary Medication (Buprenorphine (Butrans)) 1 patch WEEKLY TP ; Start 05/05/19 at 09:00; Status UNV Carvedilol (Coreg) 25 mg BIDWMEALS PO Last administered on 04/28/19 21:01; Start 04/28/19 at 18:30 Sodium Chloride (Normal Saline Flush) 3 ml QSHIFT PRN IV AFTER MEDS AND BLOOD DRAWS; Start 04/28/19 at 18:15 Sodium Chloride 1,000 ml @ 100 mls/hr Q10H IV ; Start 04/28/19 at 18:05; Stop 04/29/19 at 01:59; Status DC Ondansetron HCl (Zofran) 4 mg PRN Q4HRS PRN IV NAUSEA/VOMITING; Start 04/28/19 at 18:15 Acetaminophen (Tylenol) 650 mg PRN Q4HRS PRN PO TEMP OVER 100.4F OR MILD PAIN; Start 04/28/19 at 18:15 Al Hydroxide/Mg Hydroxide (Mylanta Plus Xs) 30 ml PRN DAILY PRN PO HEARTBURN / GAS; Start 04/28/19 at 18:15 Clonidine HCl (Catapres) 0.1 mg PRN Q6HRS PRN PO SBP>160 OR DBP>90; Start 04/28/19 at 18:15 Sodium Monofluorophosphate (Fleet Adult) 133 ml PRN DAILY PRN WI CONSTIPATION; Start 04/28/19 at 18:15 Docusate Sodium (Colace) 100 mg PRN BID PRN PO CONSTIPATION Last administered on 04/30/19at 05:14; Start 04/28/19 at 18:15 Albuterol Sulfate (Ventolin Neb Soln) 2.5 mg PRN Q4HRS PRN NEB SHORTNESS OF SONIA ATH Last administered on 04/28/19at 23:29; Start 04/28/19 at 18:15 Guaifenesin (Robitussin) 200 mg PRN Q4HRS PRN PO COUGH; Start 04/28/19 at 18:15 Lorazepam (Ativan) 0.5 mg PRN Q4HRS PRN PO ANXIETY / AGITATION; Start 04/28/19 at 18:15 Dopamine HCl/ Dextrose 250 ml @ 10.643 mls/ hr 1X ONCE IV Last administered on 04/29/19at 02:22; Start 04/29/19 at 02:00; Stop 04/29/19 at 09:52; Status DC Sodium Chloride 1,000 ml @ 75 mls/hr [id number] IV Last administered on 04/30/19at 09:22; Start 04/29/19 at 02:00 Methylprednisolone Sodium Succinate (SOLU-Medrol 125MG VIAL) 125 mg 1X ONCE IV Last administered on 04/29/19at 07:20; Start 04/29/19 at 06:30; Stop 04/29/19 at 06:31; Status DC Methylprednisolone Sodium Succinate (SOLU-Medrol 125MG VIAL) 125 mg BID IV Last administered on 04/30/19at 09:22; Start 04/29/19 at 21:00 Piperacillin Sod/ Tazobactam Sod 3.375 gm/Sodium Chloride 50 ml @ 100 mls/hr Q8HRS IV Last administered on 04/30/19at 05:14; Start 04/29/19 at 14:00 Acetaminophen (Tylenol) 500 mg PRN Q6HRS PRN PO MILD PAIN / TEMP; Start 04/29/19 at 09:00 Acetaminophen/ Codeine Phosphate (Tylenol #3) 1 tab PRN Q6HRS PRN PO MODERATE PAIN; Start 04/29/19 at 09:00 Dopamine HCl/ Dextrose 250 ml @ 6.959 mls/ hr CONT PRN IV SEE I/O RECORD Last administered on 04/30/19at 10:10; Start 04/29/19 at 10:00 Active Scripts Active Reported Butrans (Buprenorphine) 1 Each Patch.tdwk 1 Patch TP WEEKLY Carvedilol 25 Mg Tablet 25 Mg PO BIDWMEALS Levothyroxine Sodium 75 Mcg Tablet 75 Mcg PO DAILYAC Calcium Citrate 250 Mg Tablet 250 Mg PO DAILY Multivitamins (Multivitamin) 1 Each Tablet 1 Tab PO DAILY Omeprazole 20 Mg Capsule. 20 Mg PO BID Tizanidine Hcl 4 Mg Tablet 4 Mg PO TID PRN Gabapentin (Gabapentin) 300 Mg Capsule 600 Mg PO TID Pravastatin Sodium 10 Mg Tablet 1 Tab PO DAILY Aspir 81 (Aspirin) 81 Mg Tablet. 1 Tab PO DAILY Morphine Sulfate 15 Mg Tablet 1 Tab PO BID Vitals/I & O Vital Sign - Last 24 Hours 04/29/19 04/29/19 04/29/19 04/29/19 11:02 11:35 11:47 12:00 Temp 98.9 98.9 Pulse 72 B/P (MAP) 116/59 (78) Pulse Ox 98 99 O2 Delivery BiPAP/CPAP BiPAP/CPAP Venturi Mask O2 Flow Rate 15.0 15.0 04/29/19 04/29/19 04/29/19 04/29/19 12:00 13:33 15:00 15:42 Temp 98.9 98.9 Pulse 72 72 76 B/P (MAP) 116/59 (78) 110/60 (77) 108/62 (77) Pulse Ox 99 94 94 O2 Delivery Venturi Mask Venturi Mask Nasal Cannula O2 Flow Rate 4.0 4.0 15.0 04/29/19 04/29/19 04/29/19 04/29/19 16:00 16:17 17:00 18:00 Temp 98.9 98.9 Pulse 73 73 76 B/P (MAP) 110/68 (82) 110/68 (82) 98/62 (74) Pulse Ox 94 94 96 O2 Delivery Nasal Cannula Nasal Cannula Nasal Cannula Nasal Cannula O2 Flow Rate 4.0 4.0 4.0 4.0 04/29/19 04/29/19 04/29/19 04/29/19 19:00 19:00 20:00 20:00 Temp 99.0 99.0 Pulse 92 74 B/P (MAP) 119/55 (76) 112/60 (77) Pulse Ox 97 97 O2 Delivery Nasal Cannula Nasal Cannula Nasal Cannula O2 Flow Rate 3.0 15.0 3.0 3.0 04/29/19 04/29/19 04/29/19 04/29/19 20:50 21:08 21:15 21:46 Pulse 77 70 76 Resp 16 B/P (MAP) 119/55 (76) 115/62 (79) 115/62 (79) Pulse Ox 96 96 97 96 O2 Delivery Nasal Cannula High Flow Nasal Cannula Nasal Cannula Nasal Cannula O2 Flow Rate 3.0 3.0 3.0 04/29/19 04/29/19 04/30/19 04/30/19 22:11 22:30 00:00 00:00 Temp 98.1 98.1 Pulse 80 72 72 B/P (MAP) 102/57 (72) 116/62 (80) 101/58 (72) Pulse Ox 95 97 97 O2 Delivery Nasal Cannula Nasal Cannula Nasal Cannula O2 Flow Rate 3.0 3.0 15.0 3.0 04/30/19 04/30/19 04/30/19 04/30/19 00:00 01:00 01:15 01:30 Pulse 68 69 70 B/P (MAP) 78/45 (56) 98/51 (67) 103/52 (69) Pulse Ox 97 97 97 O2 Delivery Nasal Cannula Nasal Cannula Nasal Cannula Nasal Cannula O2 Flow Rate 3.0 3.0 3.0 3.0 04/30/19 04/30/19 04/30/19 04/30/19 02:00 03:00 03:00 03:44 Pulse 68 54 Resp 18 B/P (MAP) 67/36 (46) 104/50 (68) Pulse Ox 97 97 97 O2 Delivery Nasal Cannula Nasal Cannula High Flow Nasal Cannula O2 Flow Rate 3.0 3.0 15.0 3.0 04/30/19 04/30/19 04/30/19 04/30/19 04:00 04:00 05:00 06:00 Temp 97.9 97.9 Pulse 55 59 51 B/P (MAP) 113/51 (71) 113/51 (71) 126/64 (84) Pulse Ox 95 96 93 O2 Delivery Room Air Nasal Cannula Room Air Room Air 04/30/19 04/30/19 04/30/19 07:00 08:00 09:22 Pulse Ox 93 O2 Delivery Room Air Room Air O2 Flow Rate 3.0 3.0 Intake and Output 04/29/19 04/29/19 04/30/19 15:00 23:00 07:00 Intake Total 1968 ml 728 ml Output Total 650 ml 425 ml 250 ml Balance -650 ml 1543 ml 478 ml BLANCA WRIGHT MD Apr 30, 2019 10:40
--- NOTE | 2019-04-30 11:31 | PDOC ---
PULMONARY PROGRESS NOTES Subjective PT FEELS BETTER OFF BIPAP TO CATH IN FUTURE Vitals Vital Signs Date Time Temp Pulse Resp B/P (MAP) Pulse Ox O2 Delivery O2 Flow Rate FiO2 04/30/19 11:26 3.0 04/30/19 09:22 93 Room Air 04/30/19 06:00 51 126/64 (84) 04/30/19 04:00 97.9 97.9 04/30/19 03:44 18 ROS: No Nausea, No Chest Pain, No Abdominal Pain, No Increase Cough General: Alert Lungs: Crackles Cardiovascular: S1, S2 Abdomen: Soft, Non-tender Neuro Exam: Alert Extremities: No Edema Skin: Warm Labs Laboratory Tests Test 04/28/19 16:10 04/28/19 17:45 04/29/19 00:40 04/29/19 05:00 White Blood Count 9.8 x10^3/uL (4.0-11.0) 14.2 x10^3/uL (4.0-11.0) Red Blood Count 4.41 x10^6/uL (4.30-5.70) 3.88 x10^6/uL (4.30-5.70) Hemoglobin 13.4 g/dL (13.0-17.5) 11.9 g/dL (13.0-17.5) Hematocrit 39.8 % (39.0-53.0) 35.1 % (39.0-53.0) Mean Corpuscular Volume 90 fL (79-100) 90 fL (79-100) Mean Corpuscular Hemoglobin 30 pg (25-35) 31 pg (25-35) Mean Corpuscular Hemoglobin Concent 34 g/dL (31-37) 34 g/dL (31-37) Red Cell Distribution Width 13.9 % (11.5-14.5) 14.4 % (11.5-14.5) Platelet Count 116 x10^3/uL (140-400) 123 x10^3/uL (140-400) Prothrombin Time 15.6 SEC (11.7-14.0) Prothromb Time International Ratio 1.3 (0.8-1.1) Sodium Level 146 mmol/L (136-145) 143 mmol/L (136-145) Potassium Level 4.4 mmol/L (3.5-5.1) 4.6 mmol/L (3.5-5.1) Chloride Level 110 mmol/L (98-107) 107 mmol/L (98-107) Carbon Dioxide Level 26 mmol/L (21-32) 28 mmol/L (21-32) Anion Gap 10 (6-14) 8 (6-14) Blood Urea Nitrogen 28 mg/dL (8-26) 32 mg/dL (8-26) Creatinine 1.6 mg/dL (0.7-1.3) 1.7 mg/dL (0.7-1.3) Estimated GFR (Cockcroft-Gault) 43.2 40.3 Glucose Level 110 mg/dL (70-99) 121 mg/dL (70-99) Calcium Level 7.7 mg/dL (8.5-10.1) 7.3 mg/dL (8.5-10.1) Magnesium Level 0.8 mg/dL (1.8-2.4) 1.9 mg/dL (1.8-2.4) Troponin I Quantitative 8.706 ng/mL (0.000-0.055) 9.584 ng/mL (0.000-0.055) Heparin Anti-Xa Act, Unfractionated 0.28 IU/mL (0.30-0.70) 0.12 IU/mL (0.30-0.70) 0.44 IU/mL (0.30-0.70) Neutrophils (%) (Auto) 89 % (31-73) Lymphocytes (%) (Auto) 7 % (24-48) Monocytes (%) (Auto) 3 % (0-9) Eosinophils (%) (Auto) 1 % (0-3) Basophils (%) (Auto) 1 % (0-3) Neutrophils # (Auto) 12.6 x10^3/uL (1.8-7.7) Lymphocytes # (Auto) 1.0 x10^3/uL (1.0-4.8) Monocytes # (Auto) 0.5 x10^3/uL (0.0-1.1) Eosinophils # (Auto) 0.1 x10^3/uL (0.0-0.7) Basophils # (Auto) 0.1 x10^3/uL (0.0-0.2) Segmented Neutrophils % 55 % (35-66) Band Neutrophils % 29 % (0-9) Lymphocytes % 5 % (24-48) Monocytes % 4 % (0-10) Metamyelocytes % 5 % (0-0) Myelocytes % 2 % (0-0) Platelet Estimate Decreased (ADEQUATE) Large Platelets Occ Triglycerides Level 33 mg/dL (0-150) Cholesterol Level 64 mg/dL (0-200) LDL Cholesterol, Calculated 18 mg/dL (0-100) VLDL Cholesterol, Calculated 7 mg/dL (0-40) Non-HDL Cholesterol Calculated 25 mg/dL (0-129) HDL Cholesterol 39 mg/dL (40-60) Cholesterol/HDL Ratio 1.6 Test 04/29/19 08:18 04/29/19 09:30 04/29/19 12:05 04/30/19 05:45 O2 Saturation 92 % (92-99) Arterial Blood pH 7.40 (7.35-7.45) Arterial Blood pCO2 at Patient Temp 42 mmHg (35-46) Arterial Blood pO2 at Patient Temp 66 mmHg (65-108) Arterial Blood HCO3 25 mmol/L (21-28) Arterial Blood Base Excess 0 mmol/L (-3-3) FiO2 50 Urine Opiates Screen Pos (NEG) Urine Methadone Screen Neg (NEG) Urine Barbiturates Neg (NEG) Urine Phencyclidine Screen Neg (NEG) Urine Amphetamine/Methamphetamine Neg (NEG) Urine Benzodiazepines Screen Neg (NEG) Urine Cocaine Screen Neg (NEG) Urine Cannabinoids Screen Neg (NEG) Urine Ethyl Alcohol Neg (NEG) Heparin Anti-Xa Act, Unfractionated 0.30 IU/mL (0.30-0.70) 0.15 IU/mL (0.30-0.70) Troponin I Quantitative 5.967 ng/mL (0.000-0.055) White Blood Count 13.1 x10^3/uL (4.0-11.0) Red Blood Count 4.02 x10^6/uL (4.30-5.70) Hemoglobin 12.1 g/dL (13.0-17.5) Hematocrit 36.1 % (39.0-53.0) Mean Corpuscular Volume 90 fL (79-100) Mean Corpuscular Hemoglobin 30 pg (25-35) Mean Corpuscular Hemoglobin Concent 34 g/dL (31-37) Red Cell Distribution Width 14.2 % (11.5-14.5) Platelet Count 106 x10^3/uL (140-400) Neutrophils (%) (Auto) 94 % (31-73) Lymphocytes (%) (Auto) 4 % (24-48) Monocytes (%) (Auto) 3 % (0-9) Eosinophils (%) (Auto) 0 % (0-3) Basophils (%) (Auto) 0 % (0-3) Neutrophils # (Auto) 12.2 x10^3/uL (1.8-7.7) Lymphocytes # (Auto) 0.5 x10^3/uL (1.0-4.8) Monocytes # (Auto) 0.3 x10^3/uL (0.0-1.1) Eosinophils # (Auto) 0.0 x10^3/uL (0.0-0.7) Basophils # (Auto) 0.0 x10^3/uL (0.0-0.2) Sodium Level 141 mmol/L (136-145) Potassium Level 3.9 mmol/L (3.5-5.1) Chloride Level 105 mmol/L (98-107) Carbon Dioxide Level 25 mmol/L (21-32) Anion Gap 11 (6-14) Blood Urea Nitrogen 34 mg/dL (8-26) Creatinine 1.5 mg/dL (0.7-1.3) Estimated GFR (Cockcroft-Gault) 46.5 Glucose Level 197 mg/dL (70-99) Calcium Level 8.0 mg/dL (8.5-10.1) Laboratory Tests Test 04/29/19 12:05 04/30/19 05:45 Heparin Anti-Xa Act, Unfractionated 0.30 IU/mL (0.30-0.70) 0.15 IU/mL (0.30-0.70) Troponin I Quantitative 5.967 ng/mL (0.000-0.055) White Blood Count 13.1 x10^3/uL (4.0-11.0) Red Blood Count 4.02 x10^6/uL (4.30-5.70) Hemoglobin 12.1 g/dL (13.0-17.5) Hematocrit 36.1 % (39.0-53.0) Mean Corpuscular Volume 90 fL (79-100) Mean Corpuscular Hemoglobin 30 pg (25-35) Mean Corpuscular Hemoglobin Concent 34 g/dL (31-37) Red Cell Distribution Width 14.2 % (11.5-14.5) Platelet Count 106 x10^3/uL (140-400) Neutrophils (%) (Auto) 94 % (31-73) Lymphocytes (%) (Auto) 4 % (24-48) Monocytes (%) (Auto) 3 % (0-9) Eosinophils (%) (Auto) 0 % (0-3) Basophils (%) (Auto) 0 % (0-3) Neutrophils # (Auto) 12.2 x10^3/uL (1.8-7.7) Lymphocytes # (Auto) 0.5 x10^3/uL (1.0-4.8) Monocytes # (Auto) 0.3 x10^3/uL (0.0-1.1) Eosinophils # (Auto) 0.0 x10^3/uL (0.0-0.7) Basophils # (Auto) 0.0 x10^3/uL (0.0-0.2) Sodium Level 141 mmol/L (136-145) Potassium Level 3.9 mmol/L (3.5-5.1) Chloride Level 105 mmol/L (98-107) Carbon Dioxide Level 25 mmol/L (21-32) Anion Gap 11 (6-14) Blood Urea Nitrogen 34 mg/dL (8-26) Creatinine 1.5 mg/dL (0.7-1.3) Estimated GFR (Cockcroft-Gault) 46.5 Glucose Level 197 mg/dL (70-99) Calcium Level 8.0 mg/dL (8.5-10.1) Medications Active Scripts Medications Dose Route/Sig Max Daily Dose Days Date Category Butrans (Buprenorphine) 1 Each Patch.tdwk 1 Patch TP WEEKLY 04/28/19 Reported Carvedilol 25 Mg Tablet 25 Mg PO BIDWMEALS 04/28/19 Reported Levothyroxine Sodium 75 Mcg Tablet 75 Mcg PO DAILYAC 04/28/19 Reported Calcium Citrate 250 Mg Tablet 250 Mg PO DAILY 04/28/19 Reported Multivitamins (Multivitamin) 1 Each Tablet 1 Tab PO DAILY 04/28/19 Reported Omeprazole 20 Mg Capsule.dr 20 Mg PO BID 04/28/19 Reported Tizanidine Hcl 4 Mg Tablet 4 Mg PO TID PRN 04/28/19 Reported Gabapentin (Gabapentin) 300 Mg Capsule 600 Mg PO TID 01/19/16 Reported Pravastatin Sodium 10 Mg Tablet 1 Tab PO DAILY 01/19/16 Reported Aspir 81 (Aspirin) 81 Mg Tablet.dr 1 Tab PO DAILY 01/19/16 Reported Morphine Sulfate 15 Mg Tablet 1 Tab PO BID 01/19/16 Reported Impression . IMPRESSION: 1. Acute respiratory failure, multifactorial. 2. Abnormal CT revealing ground-glass opacities, compatible with acute lung injury. POSSIBLE CARDIOGENIC PULMONARY EDEMA 3. Possible pneumonia, gram-negative and gram-positive. 4. Coronary artery disease, status post stent placement in 2012. 5. Hemoptysis, secondary to ground-glass opacities, compatible with acute lung injury. 6. History of tuberculosis, details unknown. 7. Tobacco dependent, in remission. 8. Chronic obstructive pulmonary disease. 9. History of bladder cancer and renal cell tumor resection. 10. Chronic kidney disease. 11. POSSIBLE UNILATERAL EDEMA CARDIAC IN NATURE Plan . CARD INPUT APPRECIATED ISCHEMIC WORK UP SOON ANTIBX STEROIDS REPEAT CT IN 2 MONTHS NO FURTHER MASSIVE HEMOPTYSIS TODAY GIOVANNI WILLOUGHBY MD Apr 30, 2019 11:31
--- NOTE | 2019-04-30 11:43 | PDOC2 ---
CONSULT Date of Consult Date of Consult DATE: 04/30/19 TIME: 11:35 Reason for Consult Reason for Consult: KAJAL Referring Physician Referring Physician: SPENCER Identification/Chief Complaint Chief Complaint CHEST PAIN AND SOB Source Source: Chart review, Patient History of Present Illness Reason for Visit: THIS IS A 69 YR OLD WHO INITIALLY PRESENTED TO [facility] AND WAS ADMITTED WITH DIZZINESS ON THE AND DISCHARGED YESTERDAY. WAS NOTED TO HAVE KAJAL WITH CR OF 4.3. WITH HYDRATION THIS IMPROVED WITH CR DOWN TO ABOUT 1.4. HAS HAD LABILE BP READINGS WITH OCC HYPOTENSION BUT MOSTLY HYPERTENSIVE. HE WAS DISCHARGED AND THEN NOW HERE AT [facility] WITH SOB AND CHEST PAIN. HE HAS RULED IN FOR NSTEMI AND IS IN NEED OF A HEART CATH. NO NEPHROTOXINS NOTED. RENAL SONO AT [facility] WAS UNREMARKABLE FOR ACUTE FINDINGS. STATES THAT HE HAS HAD PARTIAL RESECTION OF LEFT KIDNEY FOR A TUMOR MANY YEARS AGO AND ALSO THAT HE HAS HAD BLADDER TUMORS REMOVED MULTIPLE TIMES AND THIS TOO WAS SEVERAL YEARS AGO. HAS NOT FOLLOWED UP WITH UROLOGY IN YEARS PER PT. CR NOW IN THE 1.4-1.7 RANGE WHICH APPEARS TO BE HIS BASELINE Past Medical History Cardiovascular: CAD, HTN, Hyperlipidemia Pulmonary: Other (TB at 11 yrs old; [facility]) CENTRAL NERVOUS SYSTEM: Periperal neuropathy GI: No pertinent hx Heme/Onc: Cancer (renal tumor) Hepatobiliary: No pertinent hx Musculoskeletal: low back pain, Osteoarthritis Rheumatologic: No pertinent hx Infectious disease: No pertinent hx Renal/: Chronic renal insuff, Bladder Ca. Endocrine: No pertinent hx, Hypothyroidism Past Surgical History Past Surgical History: Cataract Removal, Other (left renal tumor removal; PCI/stent; back surgery; gastric surgery; vasectomy) Family History Family History: Heart Disease (sister) Social History Quit ALCOHOL: none Drugs: None Lives: with Family Current Problem List Problem List Problems Medical Problems: (1) CAD (coronary artery disease) Status: Chronic (2) CKD (chronic kidney disease) Status: Chronic (3) Hemoptysis Status: Acute (4) HLD (hyperlipidemia) Status: Chronic (5) HTN (hypertension) Status: Chronic (6) Hypothyroid Status: Chronic (7) NSTEMI (non-ST elevated myocardial infarction) Status: Acute (8) Peripheral neuropathy Status: Chronic Current Medications Current Medications Current Medications Sodium Chloride 1,000 ml @ 100 mls/hr 1X ONCE IV Last administered on 04/28/19at 17:41; Start 04/28/19 at 17:15; Stop 04/29/19 at 03:14; Status DC Heparin Sodium/ Dextrose 500 ml @ 0 mls/hr CONT PRN IV cvc protocol Last administered on 04/29/19 23:15; Start 04/28/19 at 17:15 Heparin Sodium (Porcine) (Heparin Sodium) 2,350 unit PRN Q6HRS PRN IV FOR UFH LEVEL LESS THAN 0.2 Last administered on 04/30/19 08:16; Start 04/28/19 at 17:15 Info (Anti-Coagulation Monitoring By Pharmacy) 1 each PRN DAILY PRN MC SEE COMMENTS Last administered on 04/29/19 09:36; Start 04/28/19 at 17:30 Magnesium Sulfate/ Dextrose 100 ml @ 25 mls/hr 1X ONCE IV Last administered on 04/28/19 17:41; Start 04/28/19 at 18:00; Stop 04/28/19 at 21:59; Status DC Aspirin (Ecotrin) 81 mg DAILY PO Last administered on 04/30/19 09:22; Start 04/29/19 at 09:00 Gabapentin (Neurontin) 600 mg TID PO Last administered on 04/30/19 09:22; Start 04/28/19 at 21:00 Tizanidine HCl (Zanaflex) 4 mg PRN TID PRN PO MUSCLE SPASMS; Start 04/28/19 at 18:00 Calcium Carbonate/ Glycine (Oscal) 500 mg DAILY PO Last administered on 04/30/19 09:22; Start 04/29/19 at 09:00 Multivitamins (Thera M Plus) 1 tab DAILY PO Last administered on 04/30/19 09:22; Start 04/29/19 at 09:00 Pantoprazole Sodium (Protonix) 40 mg DAILYAC PO Last administered on 04/30/19 09:22; Start 04/29/19 at 07:30 Atorvastatin Calcium (Lipitor) 5 mg QHS PO Last administered on 04/29/19 21:08; Start 04/28/19 at 21:00 Morphine Sulfate (Ms Contin) 15 mg BID PO Last administered on 04/30/19 09:22; Start 04/28/19 at 21:00 Levothyroxine Sodium (Synthroid) 75 mcg DAILYAC PO Last administered on 04/30/19at 09:22; Start 04/29/19 at 07:30 Non-Formulary Medication (Buprenorphine (Butrans)) 1 patch WEEKLY TP ; Start 05/05/19 at 09:00; Status UNV Carvedilol (Coreg) 25 mg BIDWMEALS PO Last administered on 04/28/19at 21:01; Start 04/28/19 at 18:30 Sodium Chloride (Normal Saline Flush) 3 ml QSHIFT PRN IV AFTER MEDS AND BLOOD DRAWS; Start 04/28/19 at 18:15 Sodium Chloride 1,000 ml @ 100 mls/hr Q10H IV ; Start 04/28/19 at 18:05; Stop 04/29/19 at 01:59; Status DC Ondansetron HCl (Zofran) 4 mg PRN Q4HRS PRN IV NAUSEA/VOMITING; Start 04/28/19 at 18:15 Acetaminophen (Tylenol) 650 mg PRN Q4HRS PRN PO TEMP OVER 100.4F OR MILD PAIN; Start 04/28/19 at 18:15 Al Hydroxide/Mg Hydroxide (Mylanta Plus Xs) 30 ml PRN DAILY PRN PO HEARTBURN / GAS; Start 04/28/19 at 18:15 Clonidine HCl (Catapres) 0.1 mg PRN Q6HRS PRN PO SBP>160 OR DBP>90; Start 04/28/19 at 18:15 Sodium Monofluorophosphate (Fleet Adult) 133 ml PRN DAILY PRN [place] CONSTIPATION; Start 04/28/19 at 18:15 Docusate Sodium (Colace) 100 mg PRN BID PRN PO CONSTIPATION Last administered on 04/30/19at 05:14; Start 04/28/19 at 18:15 Albuterol Sulfate (Ventolin Neb Soln) 2.5 mg PRN Q4HRS PRN NEB SHORTNESS OF BREATH Last administered on 04/28/19at 23:29; Start 04/28/19 at 18:15 Guaifenesin (Robitussin) 200 mg PRN Q4HRS PRN PO COUGH; Start 04/28/19 at 18:15 Lorazepam (Ativan) 0.5 mg PRN Q4HRS PRN PO ANXIETY / AGITATION; Start 04/28/19 at 18:15 Dopamine HCl/ Dextrose 250 ml @ 10.643 mls/ hr 1X ONCE IV Last administered on 04/29/19at 02:22; Start 04/29/19 at 02:00; Stop 04/29/19 at 09:52; Status DC Sodium Chloride 1,000 ml @ 75 mls/hr [id number] IV Last administered on 04/30/19at 09:22; Start 04/29/19 at 02:00 Methylprednisolone Sodium Succinate (SOLU-Medrol 125MG VIAL) 125 mg 1X ONCE IV Last administered on 04/29/19at 07:20; Start 04/29/19 at 06:30; Stop 04/29/19 at 06:31; Status DC Methylprednisolone Sodium Succinate (SOLU-Medrol 125MG VIAL) 125 mg BID IV Last administered on 04/30/19at 09:22; Start 04/29/19 at 21:00 Piperacillin Sod/ Tazobactam Sod 3.375 gm/Sodium Chloride 50 ml @ 100 mls/hr Q8HRS IV Last administered on 04/30/19at 05:14; Start 04/29/19 at 14:00 Acetaminophen (Tylenol) 500 mg PRN Q6HRS PRN PO MILD PAIN / TEMP; Start 04/29/19 at 09:00 Acetaminophen/ Codeine Phosphate (Tylenol #3) 1 tab PRN Q6HRS PRN PO MODERATE PAIN; Start 04/29/19 at 09:00 Dopamine HCl/ Dextrose 250 ml @ 6.959 mls/ hr CONT PRN IV SEE I/O RECORD Last administered on 04/30/19at 10:10; Start 04/29/19 at 10:00 Active Scripts Active Reported Butrans (Buprenorphine) 1 Each Patch.tdwk 1 Patch TP WEEKLY Carvedilol 25 Mg Tablet 25 Mg PO BIDWMEALS Levothyroxine Sodium 75 Mcg Tablet 75 Mcg PO DAILYAC Calcium Citrate 250 Mg Tablet 250 Mg PO DAILY Multivitamins (Multivitamin) 1 Each Tablet 1 Tab PO DAILY Omeprazole 20 Mg Capsule. 20 Mg PO BID Tizanidine Hcl 4 Mg Tablet 4 Mg PO TID PRN Gabapentin (Gabapentin) 300 Mg Capsule 600 Mg PO TID Pravastatin Sodium 10 Mg Tablet 1 Tab PO DAILY Aspir 81 (Aspirin) 81 Mg Tablet. 1 Tab PO DAILY Morphine Sulfate 15 Mg Tablet 1 Tab PO BID Allergies Allergies: Coded Allergies: No Known Drug Allergies (Unverified , 01/19/16) ROS General: YES: Fatigue, Malaise PSYCHOLOGICAL ROS: YES: Anxiety Eyes: Yes Decreased vision HEENT: YES: Heacaches Respiratory: YES: Cough, Shortness of breath Cardiovascular: yes Chest Pain Gastrointestinal: Yes Constipation Genitourinary: YES Frequency Musculoskeletal: Yes Muscular Weakness Neurological: Yes Dizziness, Yes Weakness Skin: Yes Dry Skin Physical Exam General: Alert, Oriented X3, Cooperative HEENT: Atraumatic, PERRLA, EOMI Lungs: Clear to auscultation Heart: Regular rate Abdomen: Normal bowel sounds, Soft, No tenderness Extremities: No clubbing Skin: No breakdown Neuro: Normal speech, Sensation intact Psych/Mental Status: Mental status NL, Mood NL MUSCULOSKELETAL: No joint tenderness, No deformity, No swelling Vitals VITALS Vital Signs Date Time Temp Pulse Resp B/P (MAP) Pulse Ox O2 Delivery O2 Flow Rate FiO2 04/30/19 11:26 3.0 04/30/19 09:22 93 Room Air 04/30/19 06:00 51 126/64 (84) 04/30/19 04:00 97.9 97.9 04/30/19 03:44 18 Labs Labs Laboratory Tests Test 04/28/19 16:10 04/28/19 17:45 04/29/19 00:40 04/29/19 05:00 White Blood Count 9.8 x10^3/uL (4.0-11.0) 14.2 x10^3/uL (4.0-11.0) Red Blood Count 4.41 x10^6/uL (4.30-5.70) 3.88 x10^6/uL (4.30-5.70) Hemoglobin 13.4 g/dL (13.0-17.5) 11.9 g/dL (13.0-17.5) Hematocrit 39.8 % (39.0-53.0) 35.1 % (39.0-53.0) Mean Corpuscular Volume 90 fL (79-100) 90 fL (79-100) Mean Corpuscular Hemoglobin 30 pg (25-35) 31 pg (25-35) Mean Corpuscular Hemoglobin Concent 34 g/dL (31-37) 34 g/dL (31-37) Red Cell Distribution Width 13.9 % (11.5-14.5) 14.4 % (11.5-14.5) Platelet Count 116 x10^3/uL (140-400) 123 x10^3/uL (140-400) Prothrombin Time 15.6 SEC (11.7-14.0) Prothromb Time International Ratio 1.3 (0.8-1.1) Sodium Level 146 mmol/L (136-145) 143 mmol/L (136-145) Potassium Level 4.4 mmol/L (3.5-5.1) 4.6 mmol/L (3.5-5.1) Chloride Level 110 mmol/L (98-107) 107 mmol/L (98-107) Carbon Dioxide Level 26 mmol/L (21-32) 28 mmol/L (21-32) Anion Gap 10 (6-14) 8 (6-14) Blood Urea Nitrogen 28 mg/dL (8-26) 32 mg/dL (8-26) Creatinine 1.6 mg/dL (0.7-1.3) 1.7 mg/dL (0.7-1.3) Estimated GFR (Cockcroft-Gault) 43.2 40.3 Glucose Level 110 mg/dL (70-99) 121 mg/dL (70-99) Calcium Level 7.7 mg/dL (8.5-10.1) 7.3 mg/dL (8.5-10.1) Magnesium Level 0.8 mg/dL (1.8-2.4) 1.9 mg/dL (1.8-2.4) Troponin I Quantitative 8.706 ng/mL (0.000-0.055) 9.584 ng/mL (0.000-0.055) Heparin Anti-Xa Act, Unfractionated 0.28 IU/mL (0.30-0.70) 0.12 IU/mL (0.30-0.70) 0.44 IU/mL (0.30-0.70) Neutrophils (%) (Auto) 89 % (31-73) Lymphocytes (%) (Auto) 7 % (24-48) Monocytes (%) (Auto) 3 % (0-9) Eosinophils (%) (Auto) 1 % (0-3) Basophils (%) (Auto) 1 % (0-3) Neutrophils # (Auto) 12.6 x10^3/uL (1.8-7.7) Lymphocytes # (Auto) 1.0 x10^3/uL (1.0-4.8) Monocytes # (Auto) 0.5 x10^3/uL (0.0-1.1) Eosinophils # (Auto) 0.1 x10^3/uL (0.0-0.7) Basophils # (Auto) 0.1 x10^3/uL (0.0-0.2) Segmented Neutrophils % 55 % (35-66) Band Neutrophils % 29 % (0-9) Lymphocytes % 5 % (24-48) Monocytes % 4 % (0-10) Metamyelocytes % 5 % (0-0) Myelocytes % 2 % (0-0) Platelet Estimate Decreased (ADEQUATE) Large Platelets Occ Triglycerides Level 33 mg/dL (0-150) Cholesterol Level 64 mg/dL (0-200) LDL Cholesterol, Calculated 18 mg/dL (0-100) VLDL Cholesterol, Calculated 7 mg/dL (0-40) Non-HDL Cholesterol Calculated 25 mg/dL (0-129) HDL Cholesterol 39 mg/dL (40-60) Cholesterol/HDL Ratio 1.6 Test 04/29/19 08:18 04/29/19 09:30 04/29/19 12:05 04/30/19 05:45 O2 Saturation 92 % (92-99) Arterial Blood pH 7.40 (7.35-7.45) Arterial Blood pCO2 at Patient Temp 42 mmHg (35-46) Arterial Blood pO2 at Patient Temp 66 mmHg (65-108) Arterial Blood HCO3 25 mmol/L (21-28) Arterial Blood Base Excess 0 mmol/L (-3-3) FiO2 50 Urine Opiates Screen Pos (NEG) Urine Methadone Screen Neg (NEG) Urine Barbiturates Neg (NEG) Urine Phencyclidine Screen Neg (NEG) Urine Amphetamine/Methamphetamine Neg (NEG) Urine Benzodiazepines Screen Neg (NEG) Urine Cocaine Screen Neg (NEG) Urine Cannabinoids Screen Neg (NEG) Urine Ethyl Alcohol Neg (NEG) Heparin Anti-Xa Act, Unfractionated 0.30 IU/mL (0.30-0.70) 0.15 IU/mL (0.30-0.70) Troponin I Quantitative 5.967 ng/mL (0.000-0.055) White Blood Count 13.1 x10^3/uL (4.0-11.0) Red Blood Count 4.02 x10^6/uL (4.30-5.70) Hemoglobin 12.1 g/dL (13.0-17.5) Hematocrit 36.1 % (39.0-53.0) Mean Corpuscular Volume 90 fL (79-100) Mean Corpuscular Hemoglobin 30 pg (25-35) Mean Corpuscular Hemoglobin Concent 34 g/dL (31-37) Red Cell Distribution Width 14.2 % (11.5-14.5) Platelet Count 106 x10^3/uL (140-400) Neutrophils (%) (Auto) 94 % (31-73) Lymphocytes (%) (Auto) 4 % (24-48) Monocytes (%) (Auto) 3 % (0-9) Eosinophils (%) (Auto) 0 % (0-3) Basophils (%) (Auto) 0 % (0-3) Neutrophils # (Auto) 12.2 x10^3/uL (1.8-7.7) Lymphocytes # (Auto) 0.5 x10^3/uL (1.0-4.8) Monocytes # (Auto) 0.3 x10^3/uL (0.0-1.1) Eosinophils # (Auto) 0.0 x10^3/uL (0.0-0.7) Basophils # (Auto) 0.0 x10^3/uL (0.0-0.2) Sodium Level 141 mmol/L (136-145) Potassium Level 3.9 mmol/L (3.5-5.1) Chloride Level 105 mmol/L (98-107) Carbon Dioxide Level 25 mmol/L (21-32) Anion Gap 11 (6-14) Blood Urea Nitrogen 34 mg/dL (8-26) Creatinine 1.5 mg/dL (0.7-1.3) Estimated GFR (Cockcroft-Gault) 46.5 Glucose Level 197 mg/dL (70-99) Calcium Level 8.0 mg/dL (8.5-10.1) Laboratory Tests Test 04/29/19 12:05 04/30/19 05:45 Heparin Anti-Xa Act, Unfractionated 0.30 IU/mL (0.30-0.70) 0.15 IU/mL (0.30-0.70) Troponin I Quantitative 5.967 ng/mL (0.000-0.055) White Blood Count 13.1 x10^3/uL (4.0-11.0) Red Blood Count 4.02 x10^6/uL (4.30-5.70) Hemoglobin 12.1 g/dL (13.0-17.5) Hematocrit 36.1 % (39.0-53.0) Mean Corpuscular Volume 90 fL (79-100) Mean Corpuscular Hemoglobin 30 pg (25-35) Mean Corpuscular Hemoglobin Concent 34 g/dL (31-37) Red Cell Distribution Width 14.2 % (11.5-14.5) Platelet Count 106 x10^3/uL (140-400) Neutrophils (%) (Auto) 94 % (31-73) Lymphocytes (%) (Auto) 4 % (24-48) Monocytes (%) (Auto) 3 % (0-9) Eosinophils (%) (Auto) 0 % (0-3) Basophils (%) (Auto) 0 % (0-3) Neutrophils # (Auto) 12.2 x10^3/uL (1.8-7.7) Lymphocytes # (Auto) 0.5 x10^3/uL (1.0-4.8) Monocytes # (Auto) 0.3 x10^3/uL (0.0-1.1) Eosinophils # (Auto) 0.0 x10^3/uL (0.0-0.7) Basophils # (Auto) 0.0 x10^3/uL (0.0-0.2) Sodium Level 141 mmol/L (136-145) Potassium Level 3.9 mmol/L (3.5-5.1) Chloride Level 105 mmol/L (98-107) Carbon Dioxide Level 25 mmol/L (21-32) Anion Gap 11 (6-14) Blood Urea Nitrogen 34 mg/dL (8-26) Creatinine 1.5 mg/dL (0.7-1.3) Estimated GFR (Cockcroft-Gault) 46.5 Glucose Level 197 mg/dL (70-99) Calcium Level 8.0 mg/dL (8.5-10.1) Assessment/Plan Assessment/Plan IMP NSTEMI LEUCOCYTOSIS DYSPNEA ? PNEUMONIA RECENT KAJAL-RESOLVED CKD STAGE 3 CR AT BASELINE NEAR 1.5 HX OF PARTIAL LEFT NEPHRECTOMY/TUMOR RESECTION YEARS AGO HX OF NEPHROLITHIASIS HX OF BLADDER TUMOR RESECTION HTN HX PLAN HYDRATION CARDIOLOGY EVAL HEART CATH TOMORROW D/W CARDIOLOGY RISK OF CAN D/W PT CHECK UA WILL FOLLOW JARRELL OWENS MD Apr 30, 2019 11:42
--- NOTE | 2019-04-30 13:17 | PDOC ---
CARDIO Progress Notes Date and Time Date of Service 04/30/2019 Time of Evaluation 1316 Subjective Subjective: No shortness of breath, No Palpitations, Other (has mild midchest pain) Vitals Vitals Vital Signs Date Time Temp Pulse Resp B/P (MAP) Pulse Ox O2 Delivery O2 Flow Rate FiO2 04/30/19 12:51 Room Air 04/30/19 12:00 60 115/74 (88) 93 2.0 04/30/19 04:00 97.9 97.9 04/30/19 03:44 18 Weight Weight [ ] Input and Output Intake and Output Intake and Output 04/30/19 06:59 Intake Total 2696 ml Output Total 1325 ml Balance 1371 ml Intake Oral 560 ml IV Total 2136 ml Output Urine Total 1325 ml Laboratory Labs Laboratory Tests Test 04/30/19 05:45 White Blood Count 13.1 x10^3/uL (4.0-11.0) Red Blood Count 4.02 x10^6/uL (4.30-5.70) Hemoglobin 12.1 g/dL (13.0-17.5) Hematocrit 36.1 % (39.0-53.0) Mean Corpuscular Volume 90 fL (79-100) Mean Corpuscular Hemoglobin 30 pg (25-35) Mean Corpuscular Hemoglobin Concent 34 g/dL (31-37) Red Cell Distribution Width 14.2 % (11.5-14.5) Platelet Count 106 x10^3/uL (140-400) Neutrophils (%) (Auto) 94 % (31-73) Lymphocytes (%) (Auto) 4 % (24-48) Monocytes (%) (Auto) 3 % (0-9) Eosinophils (%) (Auto) 0 % (0-3) Basophils (%) (Auto) 0 % (0-3) Neutrophils # (Auto) 12.2 x10^3/uL (1.8-7.7) Lymphocytes # (Auto) 0.5 x10^3/uL (1.0-4.8) Monocytes # (Auto) 0.3 x10^3/uL (0.0-1.1) Eosinophils # (Auto) 0.0 x10^3/uL (0.0-0.7) Basophils # (Auto) 0.0 x10^3/uL (0.0-0.2) Heparin Anti-Xa Act, Unfractionated 0.15 IU/mL (0.30-0.70) Sodium Level 141 mmol/L (136-145) Potassium Level 3.9 mmol/L (3.5-5.1) Chloride Level 105 mmol/L (98-107) Carbon Dioxide Level 25 mmol/L (21-32) Anion Gap 11 (6-14) Blood Urea Nitrogen 34 mg/dL (8-26) Creatinine 1.5 mg/dL (0.7-1.3) Estimated GFR (Cockcroft-Gault) 46.5 Glucose Level 197 mg/dL (70-99) Calcium Level 8.0 mg/dL (8.5-10.1) Microbiology Micro Microbiology 04/29/19 Blood Culture - Preliminary, Resulted NO GROWTH AFTER 1 DAY Physical Exam HEENT: Neck Supple W Full Motion Chest: Symmetric LUNGS: Other (basilar crackles; RA) Heart: S1S2, RRR (SR) Abdomen: Soft N/T Extremities: No Edema, No Calf Tenderness Neurology: alert, oriented, follow commands Assessment Assessment 1. NSTEMI: Peaked at 9.5, EKG SR with anterolateral changes 2. Pneumonia: no further hemoptysis. No SOA 3. Septic shock: BP much better 4. CAD: 2 stents with last placed in 2012. Follows with [facility] cardiology. 5. HTN 6. HLP 7. Hx of bladder CA and left renal tumor resection 8. CKD: possibly stage 3. nephrology consult pending. 9. Remote hx of tobaccoism Recommendations 1. Antibiotics per ID and pulmonary 2. ASA. Heparin protocol. IVF. Titrate off dopamine. discussed with staff. 3. C tomorrow. Risks and benefits discussed and agreeable to proceed 4. Statin hold BP meds for now 5. Bipap PRN [employer] Apr 30, 2019 13:17
[2019-04-30] MEDS: HEPARIN 25,000UTS/500ML PREMIX 500 ML IV PRN (14:47)
[2019-04-30] MEDS: ATORVASTATIN CALCIUM 10 MG TABLET. PO SCH (21:13)
[2019-05-01] VITALS (30 sets, daily range): BP systolic 100–191; BP diastolic 53–87
[2019-05-01] MEDS: IV NORMAL SALINE 1000ML BAG 1,000 ML IV SCH ×3 (00:08→21:10)
[2019-05-01] MEDS: HEPARIN 25,000UTS/500ML PREMIX 500 ML IV PRN (03:08)
[2019-05-01 03:41] LABS: BASO % 0 % (0-3); EOS % 0 % (0-3); HEMATOCRIT 29.4 % (39.0-53.0); LYMPH # 0.6 x10^3/uL (1.0-4.8); LYMPH % 6 % (24-48); MEAN CORPUSCULAR HEMOGLOBIN 30 pg (25-35); MEAN CORPUSCULAR HGB CONC 34 g/dL (31-37); MEAN CORPUSCULAR VOLUME 89 fL (79-100); MONO # 0.3 x10^3/uL (0.0-1.1); MONO % 3 % (0-9); NEUT # 9.9 x10^3/uL (1.8-7.7); NEUT % 92 % (31-73); PLATELET COUNT 102 x10^3/uL (140-400); RED BLOOD COUNT 3.29 x10^6/uL (4.30-5.70); RED CELL DISTRIBUTION WIDTH 14.5 % (11.5-14.5); WHITE BLOOD COUNT 10.7 x10^3/uL (4.0-11.0)
[2019-05-01 03:57] LABS: CALCIUM 7.3 mg/dL (8.5-10.1); CREATININE 1.5 mg/dL (0.7-1.3); GFR 46.5; POTASSIUM 3.5 mmol/L (3.5-5.1)
[2019-05-01] MEDS: PIPERACILLIN/TAZOBACTAM 3.375 GM in IV NORMAL SALINE 50ML 50 ML IV SCH ×3 (06:02→22:09)
[2019-05-01] MEDS: CARVEDILOL 12.5 MG TABLET. PO SCH ×2 (08:00→17:00)
[2019-05-01] MEDS ORDERED: fentaNYL PF VIAL 100 MCG/2 ML VIAL ONE (08:37)
[2019-05-01] MEDS ORDERED: MIDAZOLAM HCL/PF 2 MG/2 ML VIAL. ONE ×2 (08:37→09:25)
--- NOTE | 2019-05-01 08:51 | PDOC ---
MODERATE SEDATION ASSESSMENT RISKS/ALTERNATIVES Risks/Alternatives Risks and alternatives of this type of sedation and procedure discussed with: RISK/ALTERNATIVES: Patient H & P ON CHART H & P H & P on chart and reviewed for co-morbid conditions and appropriate labs. H&P ON CHART: Yes STATUS PREG STATUS ASSESSED: N/A MEDS/ALLERGIES REVIEWED Meds/Allergies Reviewed Medications and Allergies including time and route of recently administered narcotics and sedatives. MEDS/ALLERGIES REVIEWED: Yes ASA RATING ASA RATING: II AIRWAY ASSESSMENT Airway Assessment Airway patency, oral function limitations, presence of caps, crowns, dentures, partials, and ability to extend neck assessed. AIRWAY ASSESSMENT: Yes MALLAMPATI SCORE MALLAMPATI SCORE: II PRE-SEDATION ASSESSMENT PRE-SEDATION ASSESSMENT: Yes SUSAN KATHLEEN MD May 01, 2019 08:51
--- NOTE | 2019-05-01 08:51 | PDOC ---
PULMONARY PROGRESS NOTES Subjective PT FEELS BETTER OFF BIPAP Vitals Vital Signs Date Time Temp Pulse Resp B/P (MAP) Pulse Ox O2 Delivery O2 Flow Rate FiO2 05/01/19 07:59 98.6 47 116/61 (79) 96 Room Air 98.6 05/01/19 03:00 3.0 05/01/19 01:29 18 ROS: No Nausea, No Chest Pain, No Abdominal Pain, No Increase Cough General: Alert Lungs: Crackles Cardiovascular: S1, S2 Abdomen: Soft, Non-tender Neuro Exam: Alert Extremities: No Edema Skin: Warm Labs Laboratory Tests Test 04/29/19 09:30 04/29/19 12:05 04/30/19 05:45 04/30/19 13:10 Urine Opiates Screen Pos (NEG) Urine Methadone Screen Neg (NEG) Urine Barbiturates Neg (NEG) Urine Phencyclidine Screen Neg (NEG) Urine Amphetamine/Methamphetamine Neg (NEG) Urine Benzodiazepines Screen Neg (NEG) Urine Cocaine Screen Neg (NEG) Urine Cannabinoids Screen Neg (NEG) Urine Ethyl Alcohol Neg (NEG) Heparin Anti-Xa Act, Unfractionated 0.30 IU/mL (0.30-0.70) 0.15 IU/mL (0.30-0.70) 0.31 IU/mL (0.30-0.70) Troponin I Quantitative 5.967 ng/mL (0.000-0.055) White Blood Count 13.1 x10^3/uL (4.0-11.0) Red Blood Count 4.02 x10^6/uL (4.30-5.70) Hemoglobin 12.1 g/dL (13.0-17.5) Hematocrit 36.1 % (39.0-53.0) Mean Corpuscular Volume 90 fL (79-100) Mean Corpuscular Hemoglobin 30 pg (25-35) Mean Corpuscular Hemoglobin Concent 34 g/dL (31-37) Red Cell Distribution Width 14.2 % (11.5-14.5) Platelet Count 106 x10^3/uL (140-400) Neutrophils (%) (Auto) 94 % (31-73) Lymphocytes (%) (Auto) 4 % (24-48) Monocytes (%) (Auto) 3 % (0-9) Eosinophils (%) (Auto) 0 % (0-3) Basophils (%) (Auto) 0 % (0-3) Neutrophils # (Auto) 12.2 x10^3/uL (1.8-7.7) Lymphocytes # (Auto) 0.5 x10^3/uL (1.0-4.8) Monocytes # (Auto) 0.3 x10^3/uL (0.0-1.1) Eosinophils # (Auto) 0.0 x10^3/uL (0.0-0.7) Basophils # (Auto) 0.0 x10^3/uL (0.0-0.2) Sodium Level 141 mmol/L (136-145) Potassium Level 3.9 mmol/L (3.5-5.1) Chloride Level 105 mmol/L (98-107) Carbon Dioxide Level 25 mmol/L (21-32) Anion Gap 11 (6-14) Blood Urea Nitrogen 34 mg/dL (8-26) Creatinine 1.5 mg/dL (0.7-1.3) Estimated GFR (Cockcroft-Gault) 46.5 Glucose Level 197 mg/dL (70-99) Calcium Level 8.0 mg/dL (8.5-10.1) Test 04/30/19 20:15 05/01/19 03:00 Heparin Anti-Xa Act, Unfractionated 0.25 IU/mL (0.30-0.70) 0.30 IU/mL (0.30-0.70) White Blood Count 10.7 x10^3/uL (4.0-11.0) Red Blood Count 3.29 x10^6/uL (4.30-5.70) Hemoglobin 10.0 g/dL (13.0-17.5) Hematocrit 29.4 % (39.0-53.0) Mean Corpuscular Volume 89 fL (79-100) Mean Corpuscular Hemoglobin 30 pg (25-35) Mean Corpuscular Hemoglobin Concent 34 g/dL (31-37) Red Cell Distribution Width 14.5 % (11.5-14.5) Platelet Count 102 x10^3/uL (140-400) Neutrophils (%) (Auto) 92 % (31-73) Lymphocytes (%) (Auto) 6 % (24-48) Monocytes (%) (Auto) 3 % (0-9) Eosinophils (%) (Auto) 0 % (0-3) Basophils (%) (Auto) 0 % (0-3) Neutrophils # (Auto) 9.9 x10^3/uL (1.8-7.7) Lymphocytes # (Auto) 0.6 x10^3/uL (1.0-4.8) Monocytes # (Auto) 0.3 x10^3/uL (0.0-1.1) Eosinophils # (Auto) 0.0 x10^3/uL (0.0-0.7) Basophils # (Auto) 0.0 x10^3/uL (0.0-0.2) Erythrocyte Sedimentation Rate 95 (0-15) Sodium Level 143 mmol/L (136-145) Potassium Level 3.5 mmol/L (3.5-5.1) Chloride Level 108 mmol/L (98-107) Carbon Dioxide Level 25 mmol/L (21-32) Anion Gap 10 (6-14) Blood Urea Nitrogen 38 mg/dL (8-26) Creatinine 1.5 mg/dL (0.7-1.3) Estimated GFR (Cockcroft-Gault) 46.5 Glucose Level 169 mg/dL (70-99) Calcium Level 7.3 mg/dL (8.5-10.1) Laboratory Tests Test 04/30/19 13:10 04/30/19 20:15 05/01/19 03:00 Heparin Anti-Xa Act, Unfractionated 0.31 IU/mL (0.30-0.70) 0.25 IU/mL (0.30-0.70) 0.30 IU/mL (0.30-0.70) White Blood Count 10.7 x10^3/uL (4.0-11.0) Red Blood Count 3.29 x10^6/uL (4.30-5.70) Hemoglobin 10.0 g/dL (13.0-17.5) Hematocrit 29.4 % (39.0-53.0) Mean Corpuscular Volume 89 fL (79-100) Mean Corpuscular Hemoglobin 30 pg (25-35) Mean Corpuscular Hemoglobin Concent 34 g/dL (31-37) Red Cell Distribution Width 14.5 % (11.5-14.5) Platelet Count 102 x10^3/uL (140-400) Neutrophils (%) (Auto) 92 % (31-73) Lymphocytes (%) (Auto) 6 % (24-48) Monocytes (%) (Auto) 3 % (0-9) Eosinophils (%) (Auto) 0 % (0-3) Basophils (%) (Auto) 0 % (0-3) Neutrophils # (Auto) 9.9 x10^3/uL (1.8-7.7) Lymphocytes # (Auto) 0.6 x10^3/uL (1.0-4.8) Monocytes # (Auto) 0.3 x10^3/uL (0.0-1.1) Eosinophils # (Auto) 0.0 x10^3/uL (0.0-0.7) Basophils # (Auto) 0.0 x10^3/uL (0.0-0.2) Erythrocyte Sedimentation Rate 95 (0-15) Sodium Level 143 mmol/L (136-145) Potassium Level 3.5 mmol/L (3.5-5.1) Chloride Level 108 mmol/L (98-107) Carbon Dioxide Level 25 mmol/L (21-32) Anion Gap 10 (6-14) Blood Urea Nitrogen 38 mg/dL (8-26) Creatinine 1.5 mg/dL (0.7-1.3) Estimated GFR (Cockcroft-Gault) 46.5 Glucose Level 169 mg/dL (70-99) Calcium Level 7.3 mg/dL (8.5-10.1) Medications Active Scripts Medications Dose Route/Sig Max Daily Dose Days Date Category Butrans (Buprenorphine) 1 Each Patch.tdwk 1 Patch TP WEEKLY 04/28/19 Reported Carvedilol 25 Mg Tablet 25 Mg PO BIDWMEALS 04/28/19 Reported Levothyroxine Sodium 75 Mcg Tablet 75 Mcg PO DAILYAC 04/28/19 Reported Calcium Citrate 250 Mg Tablet 250 Mg PO DAILY 04/28/19 Reported Multivitamins (Multivitamin) 1 Each Tablet 1 Tab PO DAILY 04/28/19 Reported Omeprazole 20 Mg Capsule.dr 20 Mg PO BID 04/28/19 Reported Tizanidine Hcl 4 Mg Tablet 4 Mg PO TID PRN 04/28/19 Reported Gabapentin (Gabapentin) 300 Mg Capsule 600 Mg PO TID 01/19/16 Reported Pravastatin Sodium 10 Mg Tablet 1 Tab PO DAILY 01/19/16 Reported Aspir 81 (Aspirin) 81 Mg Tablet.dr 1 Tab PO DAILY 01/19/16 Reported Morphine Sulfate 15 Mg Tablet 1 Tab PO BID 01/19/16 Reported Impression . IMPRESSION: 1. Acute respiratory failure, multifactorial. 2. Abnormal CT revealing ground-glass opacities, compatible with acute lung injury. POSSIBLE CARDIOGENIC PULMONARY EDEMA 3. Possible pneumonia, gram-negative and gram-positive. 4. Coronary artery disease, status post stent placement in 2012. 5. Hemoptysis, secondary to ground-glass opacities, compatible with acute lung injury. 6. History of tuberculosis, details unknown. 7. Tobacco dependent, in remission. 8. Chronic obstructive pulmonary disease. 9. History of bladder cancer and renal cell tumor resection. 10. Chronic kidney disease. 11. POSSIBLE UNILATERAL EDEMA CARDIAC IN NATURE Plan . OFF BIPAP BETTER TODAY FOLLOW CARD INPUT ANTIBX STEROIDS REPEAT CT IN 2 MONTHS NO FURTHER MASSIVE HEMOPTYSIS TODAY GIOVANNI WILLOUGHBY MD May 01, 2019 08:51
[2019-05-01] MEDS ORDERED: BIVALIRUDIN 250 MG VIAL. IV ONE ×2 (09:21→10:00)
[2019-05-01] MEDS ORDERED: IODIXANOL 320 MG/ML 100 ML VIAL. ONE (09:37)
[2019-05-01] MEDS ORDERED: TICAGRELOR 90 MG TABLET. ONE (09:51)
[2019-05-01] MEDS ORDERED: MIDAZOLAM HCL/PF 2 MG/2 ML VIAL. IV ONE (10:00)
[2019-05-01] MEDS ORDERED: fentaNYL PF VIAL 100 MCG/2 ML VIAL IV ONE (10:00)
[2019-05-01] MEDS ORDERED: TICAGRELOR 90 MG TABLET. PO ONE (10:00)
[2019-05-01] MEDS ORDERED: IODIXANOL 320 MG/ML 100 ML VIAL. IART ONE (10:00)
[2019-05-01] MEDS ORDERED: LIDOCAINE 1% Multi-Dose 20 ML VIAL. INJ ONE (10:00)
[2019-05-01] MEDS ORDERED: 0.9 % SODIUM CHLORIDE 10 ML DISP.SYRIN. IV PRN (10:30)
[2019-05-01] MEDS ORDERED: fentaNYL PF VIAL 100 MCG/2 ML VIAL IV PRN (10:30)
[2019-05-01] MEDS ORDERED: LIDOCAINE 2% 100 MG/5 ML SYRINGE. IV PRN (10:30)
[2019-05-01] MEDS ORDERED: NITROGLYCERIN SUBLINGUAL 0.4 MG BOTTLE OF 25. SL PRN (10:30)
[2019-05-01] MEDS ORDERED: ACETAMINOPHEN 325 MG TABLET. PO PRN (10:30)
[2019-05-01] MEDS ORDERED: AMIODARONE 150 MG in IV DEXTROSE 5% 100ML 100 ML IV PRN (10:30)
[2019-05-01] MEDS ORDERED: ATROPINE 0.5 MG/5 ML DISP.SYRINGE. IV PRN (10:30)
--- NOTE | 2019-05-01 10:42 | PDOC ---
PROGRESS NOTES Chief Complaint Chief Complaint 1. NSTEMI: 2. HYPOTENSIOn - on pressor 2. Hemoptysis , resolved 3. KAJAL - creat 4 now 1.6 Multifocal bilateral ground glass opacities and consolidations, greatest in the right lung and likely representing multifocal infection. 3. Hx of TB as child 4. CAD: 2 stents with last placed in 2012. [facility] 6. hyperlipidemia 7. Hx of bladder CA and left renal tumor resection 8. CKD: 9. hx of tobacco use, quit 10. hypothyroid on replacement 11. peripheral neuropathy History of Present Illness History of Present Illness out having [facility] chart reviewed Was on pressor yesterday, face mask, heparin gtt NOt complaining of CPs etc PLAn:Await [facility] results Vitals Vitals Vital Signs Date Time Temp Pulse Resp B/P (MAP) Pulse Ox O2 Delivery O2 Flow Rate FiO2 05/01/19 10:10 50 18 93 Room Air 05/01/19 07:59 98.6 116/61 (79) 98.6 05/01/19 03:00 3.0 Physical Exam Physical Exam GENERAL: Alert and oriented gentleman, not in distress. VITAL SIGNS: Stable HEENT: NAD. NECK: Supple, no JVP, no lymphadenopathy. LUNGS: Clear. HEART: S1, S2 regular. ABDOMEN: Benign. EXTREMITIES: No edema, cyanosis. SKIN: Unremarkable. NEUROLOGIC: Alert, awake and appropriate. No focal neurologic deficit. General: Alert, Oriented X3, Cooperative Heart: Regular rate Lungs: Crackles Abdomen: Normal bowel sounds, Soft, No tenderness Extremities: No clubbing Skin: No breakdown Labs LABS Laboratory Tests Test 04/30/19 13:10 04/30/19 20:15 05/01/19 03:00 Heparin Anti-Xa Act, Unfractionated 0.31 IU/mL (0.30-0.70) 0.25 IU/mL (0.30-0.70) 0.30 IU/mL (0.30-0.70) White Blood Count 10.7 x10^3/uL (4.0-11.0) Red Blood Count 3.29 x10^6/uL (4.30-5.70) Hemoglobin 10.0 g/dL (13.0-17.5) Hematocrit 29.4 % (39.0-53.0) Mean Corpuscular Volume 89 fL (79-100) Mean Corpuscular Hemoglobin 30 pg (25-35) Mean Corpuscular Hemoglobin Concent 34 g/dL (31-37) Red Cell Distribution Width 14.5 % (11.5-14.5) Platelet Count 102 x10^3/uL (140-400) Neutrophils (%) (Auto) 92 % (31-73) Lymphocytes (%) (Auto) 6 % (24-48) Monocytes (%) (Auto) 3 % (0-9) Eosinophils (%) (Auto) 0 % (0-3) Basophils (%) (Auto) 0 % (0-3) Neutrophils # (Auto) 9.9 x10^3/uL (1.8-7.7) Lymphocytes # (Auto) 0.6 x10^3/uL (1.0-4.8) Monocytes # (Auto) 0.3 x10^3/uL (0.0-1.1) Eosinophils # (Auto) 0.0 x10^3/uL (0.0-0.7) Basophils # (Auto) 0.0 x10^3/uL (0.0-0.2) Erythrocyte Sedimentation Rate 95 (0-15) Sodium Level 143 mmol/L (136-145) Potassium Level 3.5 mmol/L (3.5-5.1) Chloride Level 108 mmol/L (98-107) Carbon Dioxide Level 25 mmol/L (21-32) Anion Gap 10 (6-14) Blood Urea Nitrogen 38 mg/dL (8-26) Creatinine 1.5 mg/dL (0.7-1.3) Estimated GFR (Cockcroft-Gault) 46.5 Glucose Level 169 mg/dL (70-99) Calcium Level 7.3 mg/dL (8.5-10.1) Review of Systems Review of Systems out having [facility] Assessment and Plan Assessmemt and Plan Problems Medical Problems: (1) CAD (coronary artery disease) Status: Chronic (2) CKD (chronic kidney disease) Status: Chronic (3) Hemoptysis Status: Acute (4) HLD (hyperlipidemia) Status: Chronic (5) HTN (hypertension) Status: Chronic (6) Hypothyroid Status: Chronic (7) NSTEMI (non-ST elevated myocardial infarction) Status: Acute (8) Peripheral neuropathy Status: Chronic Comment Review of Relevant I have reviewed the following items josseline (where applicable) has been applied. Labs Laboratory Tests Test 04/29/19 12:05 04/30/19 05:45 04/30/19 13:10 04/30/19 20:15 Heparin Anti-Xa Act, Unfractionated 0.30 IU/mL (0.30-0.70) 0.15 IU/mL (0.30-0.70) 0.31 IU/mL (0.30-0.70) 0.25 IU/mL (0.30-0.70) Troponin I Quantitative 5.967 ng/mL (0.000-0.055) White Blood Count 13.1 x10^3/uL (4.0-11.0) Red Blood Count 4.02 x10^6/uL (4.30-5.70) Hemoglobin 12.1 g/dL (13.0-17.5) Hematocrit 36.1 % (39.0-53.0) Mean Corpuscular Volume 90 fL (79-100) Mean Corpuscular Hemoglobin 30 pg (25-35) Mean Corpuscular Hemoglobin Concent 34 g/dL (31-37) Red Cell Distribution Width 14.2 % (11.5-14.5) Platelet Count 106 x10^3/uL (140-400) Neutrophils (%) (Auto) 94 % (31-73) Lymphocytes (%) (Auto) 4 % (24-48) Monocytes (%) (Auto) 3 % (0-9) Eosinophils (%) (Auto) 0 % (0-3) Basophils (%) (Auto) 0 % (0-3) Neutrophils # (Auto) 12.2 x10^3/uL (1.8-7.7) Lymphocytes # (Auto) 0.5 x10^3/uL (1.0-4.8) Monocytes # (Auto) 0.3 x10^3/uL (0.0-1.1) Eosinophils # (Auto) 0.0 x10^3/uL (0.0-0.7) Basophils # (Auto) 0.0 x10^3/uL (0.0-0.2) Sodium Level 141 mmol/L (136-145) Potassium Level 3.9 mmol/L (3.5-5.1) Chloride Level 105 mmol/L (98-107) Carbon Dioxide Level 25 mmol/L (21-32) Anion Gap 11 (6-14) Blood Urea Nitrogen 34 mg/dL (8-26) Creatinine 1.5 mg/dL (0.7-1.3) Estimated GFR (Cockcroft-Gault) 46.5 Glucose Level 197 mg/dL (70-99) Calcium Level 8.0 mg/dL (8.5-10.1) Test 05/01/19 03:00 White Blood Count 10.7 x10^3/uL (4.0-11.0) Red Blood Count 3.29 x10^6/uL (4.30-5.70) Hemoglobin 10.0 g/dL (13.0-17.5) Hematocrit 29.4 % (39.0-53.0) Mean Corpuscular Volume 89 fL (79-100) Mean Corpuscular Hemoglobin 30 pg (25-35) Mean Corpuscular Hemoglobin Concent 34 g/dL (31-37) Red Cell Distribution Width 14.5 % (11.5-14.5) Platelet Count 102 x10^3/uL (140-400) Neutrophils (%) (Auto) 92 % (31-73) Lymphocytes (%) (Auto) 6 % (24-48) Monocytes (%) (Auto) 3 % (0-9) Eosinophils (%) (Auto) 0 % (0-3) Basophils (%) (Auto) 0 % (0-3) Neutrophils # (Auto) 9.9 x10^3/uL (1.8-7.7) Lymphocytes # (Auto) 0.6 x10^3/uL (1.0-4.8) Monocytes # (Auto) 0.3 x10^3/uL (0.0-1.1) Eosinophils # (Auto) 0.0 x10^3/uL (0.0-0.7) Basophils # (Auto) 0.0 x10^3/uL (0.0-0.2) Erythrocyte Sedimentation Rate 95 (0-15) Heparin Anti-Xa Act, Unfractionated 0.30 IU/mL (0.30-0.70) Sodium Level 143 mmol/L (136-145) Potassium Level 3.5 mmol/L (3.5-5.1) Chloride Level 108 mmol/L (98-107) Carbon Dioxide Level 25 mmol/L (21-32) Anion Gap 10 (6-14) Blood Urea Nitrogen 38 mg/dL (8-26) Creatinine 1.5 mg/dL (0.7-1.3) Estimated GFR (Cockcroft-Gault) 46.5 Glucose Level 169 mg/dL (70-99) Calcium Level 7.3 mg/dL (8.5-10.1) Laboratory Tests Test 04/30/19 13:10 04/30/19 20:15 05/01/19 03:00 Heparin Anti-Xa Act, Unfractionated 0.31 IU/mL (0.30-0.70) 0.25 IU/mL (0.30-0.70) 0.30 IU/mL (0.30-0.70) White Blood Count 10.7 x10^3/uL (4.0-11.0) Red Blood Count 3.29 x10^6/uL (4.30-5.70) Hemoglobin 10.0 g/dL (13.0-17.5) Hematocrit 29.4 % (39.0-53.0) Mean Corpuscular Volume 89 fL (79-100) Mean Corpuscular Hemoglobin 30 pg (25-35) Mean Corpuscular Hemoglobin Concent 34 g/dL (31-37) Red Cell Distribution Width 14.5 % (11.5-14.5) Platelet Count 102 x10^3/uL (140-400) Neutrophils (%) (Auto) 92 % (31-73) Lymphocytes (%) (Auto) 6 % (24-48) Monocytes (%) (Auto) 3 % (0-9) Eosinophils (%) (Auto) 0 % (0-3) Basophils (%) (Auto) 0 % (0-3) Neutrophils # (Auto) 9.9 x10^3/uL (1.8-7.7) Lymphocytes # (Auto) 0.6 x10^3/uL (1.0-4.8) Monocytes # (Auto) 0.3 x10^3/uL (0.0-1.1) Eosinophils # (Auto) 0.0 x10^3/uL (0.0-0.7) Basophils # (Auto) 0.0 x10^3/uL (0.0-0.2) Erythrocyte Sedimentation Rate 95 (0-15) Sodium Level 143 mmol/L (136-145) Potassium Level 3.5 mmol/L (3.5-5.1) Chloride Level 108 mmol/L (98-107) Carbon Dioxide Level 25 mmol/L (21-32) Anion Gap 10 (6-14) Blood Urea Nitrogen 38 mg/dL (8-26) Creatinine 1.5 mg/dL (0.7-1.3) Estimated GFR (Cockcroft-Gault) 46.5 Glucose Level 169 mg/dL (70-99) Calcium Level 7.3 mg/dL (8.5-10.1) Microbiology 04/29/19 - Final, Resulted 04/29/19 - Final, Resulted 04/29/19 - Final, Resulted 04/29/19 - Preliminary, Resulted 04/29/19 - Preliminary, Resulted 04/29/19 - Preliminary, Resulted 04/29/19 Gram Stain Evaluation - Final, Resulted 04/29/19 Sputum Culture, Resulted Pending 04/29/19 Blood Culture - Preliminary, Resulted NO GROWTH AFTER 1 DAY Medications Current Medications Sodium Chloride 1,000 ml @ 100 mls/hr 1X ONCE IV Last administered on 04/28/19at 17:41; Start 04/28/19 at 17:15; Stop 04/29/19 at 03:14; Status DC Heparin Sodium/ Dextrose 500 ml @ 0 mls/hr CONT PRN IV cvc protocol Last administered on 05/01/19at 03:08; Start 04/28/19 at 17:15 Heparin Sodium (Porcine) (Heparin Sodium) 2,350 unit PRN Q6HRS PRN IV FOR UFH LEVEL LESS THAN 0.2 Last administered on 04/30/19at 08:16; Start 04/28/19 at 17:15 Info (Anti-Coagulation Monitoring By Pharmacy) 1 each PRN DAILY PRN MC SEE COMMENTS Last administered on 04/29/19at 09:36; Start 04/28/19 at 17:30 Magnesium Sulfate/ Dextrose 100 ml @ 25 mls/hr 1X ONCE IV Last administered on 04/28/19at 17:41; Start 04/28/19 at 18:00; Stop 04/28/19 at 21:59; Status DC Aspirin (Ecotrin) 81 mg DAILY PO Last administered on 04/30/19 09:22; Start 04/29/19 at 09:00 Gabapentin (Neurontin) 600 mg TID PO Last administered on 04/30/19 21:14; Start 04/28/19 at 21:00 Tizanidine HCl (Zanaflex) 4 mg PRN TID PRN PO MUSCLE SPASMS; Start 04/28/19 at 18:00 Calcium Carbonate/ Glycine (Oscal) 500 mg DAILY PO Last administered on 04/30/19 09:22; Start 04/29/19 at 09:00 Multivitamins (Thera M Plus) 1 tab DAILY PO Last administered on 04/30/19 09:22; Start 04/29/19 at 09:00 Pantoprazole Sodium (Protonix) 40 mg DAILYAC PO Last administered on 04/30/19 09:22; Start 04/29/19 at 07:30 Atorvastatin Calcium (Lipitor) 5 mg QHS PO Last administered on 04/30/19 21:14; Start 04/28/19 at 21:00 Morphine Sulfate (Ms Contin) 15 mg BID PO Last administered on 04/30/19 21:14; Start 04/28/19 at 21:00 Levothyroxine Sodium (Synthroid) 75 mcg DAILYAC PO Last administered on 04/30/19 09:22; Start 04/29/19 at 07:30 Non-Formulary Medication (Buprenorphine (Butrans)) 1 patch WEEKLY TP ; Start 05/05/19 at 09:00; Status UNV Carvedilol (Coreg) 25 mg BIDWMEALS PO Last administered on 04/28/19 21:01; Start 04/28/19 at 18:30 Sodium Chloride (Normal Saline Flush) 3 ml QSHIFT PRN IV AFTER MEDS AND BLOOD DRAWS; Start 04/28/19 at 18:15 Sodium Chloride 1,000 ml @ 100 mls/hr Q10H IV ; Start 04/28/19 at 18:05; Stop 04/29/19 at 01:59; Status DC Ondansetron HCl (Zofran) 4 mg PRN Q4HRS PRN IV NAUSEA/VOMITING; Start 04/28/19 at 18:15 Acetaminophen (Tylenol) 650 mg PRN Q4HRS PRN PO TEMP OVER 100.4F OR MILD PAIN; Start 04/28/19 at 18:15 Al Hydroxide/Mg Hydroxide (Mylanta Plus Xs) 30 ml PRN DAILY PRN PO HEARTBURN / GAS; Start 04/28/19 at 18:15 Clonidine HCl (Catapres) 0.1 mg PRN Q6HRS PRN PO SBP>160 OR DBP>90; Start 04/28/19 at 18:15 Sodium Monofluorophosphate (Fleet Adult) 133 ml PRN DAILY PRN [place] CONSTIPATION; Start 04/28/19 at 18:15 Docusate Sodium (Colace) 100 mg PRN BID PRN PO CONSTIPATION Last administered on 04/30/19 21:14; Start 04/28/19 at 18:15 Albuterol Sulfate (Ventolin Neb Soln) 2.5 mg PRN Q4HRS PRN NEB SHORTNESS OF BREATH Last administered on 04/28/19 23:29; Start 04/28/19 at 18:15 Guaifenesin (Robitussin) 200 mg PRN Q4HRS PRN PO COUGH; Start 04/28/19 at 18:15 Lorazepam (Ativan) 0.5 mg PRN Q4HRS PRN PO ANXIETY / AGITATION; Start 04/28/19 at 18:15 Dopamine HCl/ Dextrose 250 ml @ 10.643 mls/ hr 1X ONCE IV Last administered on 04/29/19 02:22; Start 04/29/19 at 02:00; Stop 04/29/19 at 09:52; Status DC Sodium Chloride 1,000 ml @ 75 mls/hr [id number] IV Last administered on 05/01/19at 00:08; Start 04/29/19 at 02:00 Methylprednisolone Sodium Succinate (SOLU-Medrol 125MG VIAL) 125 mg 1X ONCE IV Last administered on 04/29/19at 07:20; Start 04/29/19 at 06:30; Stop 04/29/19 at 06:31; Status DC Methylprednisolone Sodium Succinate (SOLU-Medrol 125MG VIAL) 125 mg BID IV Last administered on 04/30/19at 21:14; Start 04/29/19 at 21:00 Piperacillin Sod/ Tazobactam Sod 3.375 gm/Sodium Chloride 50 ml @ 100 mls/hr Q8HRS IV Last administered on 05/01/19at 06:02; Start 04/29/19 at 14:00 Acetaminophen (Tylenol) 500 mg PRN Q6HRS PRN PO MILD PAIN / TEMP; Start 04/29/19 at 09:00 Acetaminophen/ Codeine Phosphate (Tylenol #3) 1 tab PRN Q6HRS PRN PO MODERATE PAIN; Start 04/29/19 at 09:00 Dopamine HCl/ Dextrose 250 ml @ 6.959 mls/ hr CONT PRN IV SEE I/O RECORD Last administered on 04/30/19at 10:10; Start 04/29/19 at 10:00 Fentanyl Citrate (Fentanyl 2ml Vial) 100 mcg STK-MED ONCE .ROUTE ; Start 05/01/19 at 08:37; Stop 05/01/19 at 08:37; Status DC Midazolam HCl (Versed) 2 mg STK-MED ONCE .ROUTE ; Start 05/01/19 at 08:37; Stop 05/01/19 at 08:38; Status DC Bivalirudin (Angiomax) 250 mg STK-MED ONCE IV ; Start 05/01/19 at 09:21; Stop 05/01/19 at 09:21; Status DC Midazolam HCl (Versed) 2 mg STK-MED ONCE .ROUTE ; Start 05/01/19 at 09:25; Stop 05/01/19 at 09:25; Status DC Iodixanol (Visipaque 320) 100 ml STK-MED ONCE .ROUTE ; Start 05/01/19 at 09:37; Stop 05/01/19 at 09:37; Status DC Ticagrelor (Brilinta) 90 mg STK-MED ONCE .ROUTE ; Start 05/01/19 at 09:51; Stop 05/01/19 at 09:51; Status DC Heparin Sodium/ Sodium Chloride (HEPARIN for ARTERIAL LINE FLUSH) 1,000 unit 1X ONCE IART Last administered on 05/01/19at 10:09; Start 05/01/19 at 10:00; Stop 05/01/19 at 10:06; Status DC Midazolam HCl (Versed) 3 mg 1X ONCE IV Last administered on 05/01/19at 10:09; Start 05/01/19 at 10:00; Stop 05/01/19 at 10:06; Status DC Fentanyl Citrate (Fentanyl 2ml Vial) 37.5 mcg 1X ONCE IV Last administered on 05/01/19at 10:09; Start 05/01/19 at 10:00; Stop 05/01/19 at 10:06; Status DC Iodixanol (Visipaque 320) 217 ml 1X ONCE IART Last administered on 05/01/19at 10:09; Start 05/01/19 at 10:00; Stop 05/01/19 at 10:06; Status DC Bivalirudin (Angiomax) 250 mg 1X ONCE IV Last administered on 05/01/19at 10:09; Start 05/01/19 at 10:00; Stop 05/01/19 at 10:06; Status DC Ticagrelor (Brilinta) 180 mg 1X ONCE PO Last administered on 05/01/19at 10:09; Start 05/01/19 at 10:00; Stop 05/01/19 at 10:06; Status DC Lidocaine HCl (Lidocaine 1% 20ml Vial) 20 ml 1X ONCE INJ Last administered on 05/01/19at 10:09; Start 05/01/19 at 10:00; Stop 05/01/19 at 10:06; Status DC Sodium Chloride (Normal Saline Flush) 3 ml QSHIFT PRN IV AFTER MEDS AND BLOOD DRAWS; Start 05/01/19 at 10:30; Status UNV Sodium Chloride 1,000 ml @ 75 mls/hr [id number] IV ; Start 05/01/19 at 10:22; Status UNV Aspirin (Ecotrin) 81 mg DAILYWBKFT PO ; Start 05/02/19 at 08:00; Status UNV Ticagrelor (Brilinta) 90 mg BID PO ; Start 05/02/19 at 09:00; Status UNV Acetaminophen (Tylenol) 650 mg PRN Q6HRS PRN PO MILD PAIN / TEMP; Start 05/01/19 at 10:30; Status UNV Fentanyl Citrate (Fentanyl 2ml Vial) 50 mcg PRN Q1HR PRN IV MODERATE OR SEVERE PAIN; Start 05/01/19 at 10:30; Status UNV Nitroglycerin (Nitrostat) 0.4 mg PRN Q5MIN PRN SL CHEST PAIN; Start 05/01/19 at 10:30; Status UNV Amiodarone HCl 150 mg/Dextrose 103 ml @ 600 mls/hr 1X PRN PRN IV FOR VENTRICULAR TACHYCARDIA; Start 05/01/19 at 10:30; Status UNV Lidocaine HCl (Lidocaine HCl 2% Abboject) 100 mg 1X PRN PRN IV FOR VENTRICULAR TACHYCARDIA; Start 05/01/19 at 10:30; Status UNV Atropine Sulfate (ATROPINE 0.5mg SYRINGE) 0.5 mg PRN 1X PRN IV BRADYCARDIA; Start 05/01/19 at 10:30; Status UNV Active Scripts Active Reported Butrans (Buprenorphine) 1 Each Patch.tdwk 1 Patch TP WEEKLY Carvedilol 25 Mg Tablet 25 Mg PO BIDWMEALS Levothyroxine Sodium 75 Mcg Tablet 75 Mcg PO DAILYAC Calcium Citrate 250 Mg Tablet 250 Mg PO DAILY Multivitamins (Multivitamin) 1 Each Tablet 1 Tab PO DAILY Omeprazole 20 Mg Capsule. 20 Mg PO BID Tizanidine Hcl 4 Mg Tablet 4 Mg PO TID PRN Gabapentin (Gabapentin) 300 Mg Capsule 600 Mg PO TID Pravastatin Sodium 10 Mg Tablet 1 Tab PO DAILY Aspir 81 (Aspirin) 81 Mg Tablet. 1 Tab PO DAILY Morphine Sulfate 15 Mg Tablet 1 Tab PO BID Vitals/I & O Vital Sign - Last 24 Hours 04/30/19 04/30/19 04/30/19 04/30/19 11:00 11:26 12:00 12:51 Pulse 56 60 B/P (MAP) 126/64 (84) 115/74 (88) Pulse Ox 93 93 O2 Delivery Nasal Cannula Nasal Cannula Room Air O2 Flow Rate 2.0 3.0 2.0 04/30/19 04/30/19 04/30/19 04/30/19 13:00 14:00 14:15 15:00 Pulse 60 64 62 B/P (MAP) 115/66 (82) 114/53 (73) 100/67 (78) Pulse Ox 93 93 93 93 O2 Delivery Nasal Cannula Nasal Cannula Room Air Nasal Cannula O2 Flow Rate 2.0 2.0 2.0 2.0 04/30/19 04/30/19 04/30/19 04/30/19 16:00 16:00 16:00 16:52 Pulse 60 B/P (MAP) 123/62 (82) Pulse Ox 93 O2 Delivery Room Air Nasal Cannula O2 Flow Rate 2.0 3.0 3.0 8/15/19 8/15/19 8/15/19 8/15/19 17:00 18:00 19:00 19:00 Temp 97.9 98.3 97.9 98.3 Pulse 52 58 68 B/P (MAP) 109/74 (86) 110/76 (87) 139/72 (94) Pulse Ox 93 93 94 O2 Delivery Nasal Cannula Room Air Room Air O2 Flow Rate 2.0 2.0 3.0 04/30/19 04/30/19 04/30/19 04/30/19 20:00 20:00 21:00 21:14 Pulse 62 70 Resp 22 B/P (MAP) 139/73 (95) 134/66 (88) Pulse Ox 92 93 93 O2 Delivery Room Air Room Air Room Air Room Air 04/30/19 04/30/19 04/30/19 05/01/19 22:00 23:00 23:00 00:00 Pulse 64 66 B/P (MAP) 123/64 (83) 138/75 (96) Pulse Ox 96 95 O2 Delivery Room Air Room Air Room Air O2 Flow Rate 3.0 05/01/19 05/01/19 05/01/19 05/01/19 00:00 01:00 01:29 02:00 Temp 98.0 98.0 Pulse 66 56 52 Resp 18 B/P (MAP) 123/64 (83) 139/71 (93) 130/74 (92) Pulse Ox 96 94 94 95 O2 Delivery Room Air Room Air Room Air Room Air 05/01/19 05/01/19 05/01/19 05/01/19 03:00 03:00 04:00 04:00 Temp 98.6 98.6 Pulse 51 50 B/P (MAP) 112/56 (74) 100/53 (69) Pulse Ox 95 95 O2 Delivery Room Air Room Air Room Air O2 Flow Rate 3.0 05/01/19 05/01/19 05/01/19 05/01/19 05:00 06:00 07:51 07:59 Temp 98.6 98.6 Pulse 48 48 47 B/P (MAP) 109/57 (74) 106/53 (70) 116/61 (79) Pulse Ox 95 95 96 96 O2 Delivery Room Air Room Air Room Air Room Air 05/01/19 05/01/19 10:09 10:10 Pulse 50 Resp 18 18 Pulse Ox 92 93 O2 Delivery Room Air Room Air Intake and Output 04/30/19 04/30/19 05/01/19 15:00 23:00 07:00 Intake Total 680 ml 1351 ml Output Total 700 ml 100 ml Balance -20 ml 1251 ml BLANCA WRIGHT MD May 01, 2019 10:42
--- NOTE | 2019-05-01 11:27 | EKG ---
[facility] [address] [place] [address] Test Date: 2019-05-01 Test Time: 11:18:14 Pat Name: KIKI JOYNER Department: Room: 206 1 Gender: M Acute Coordinator: JEFF] : 1950 Requested By: SUSAN KATHLEEN Order Number: [id number] Reading MD: Measurements Intervals [employer] Rate: 48 P: 70 CA: 174 QRS: 39 QRSD: 98 T: 36 QT: 526 QTc: 474 Interpretive Statements SINUS BRADYCARDIA LOW LIMB LEAD VOLTAGE QRS(T) CONTOUR ABNORMALITY CONSIDER ANTEROSEPTAL MYOCARDIAL DAMAGE PROLONGED QT POSSIBLY ABNORMAL ECG RI6.01 Unconfirmed report No previous ECG available for comparison
[2019-05-01] MEDS ORDERED: ASPIRIN ENTERIC COATED 81 MG TABLET.DR. PO SCH (12:00)
--- NOTE | 2019-05-01 12:02 | PDOC ---
Renal-Progress Notes Subjective Notes Notes NO NEW COMPLAINTS History of Present Illness Hx of present illness HEART CATH TODAY Vitals Vitals Vital Signs Date Time Temp Pulse Resp B/P (MAP) Pulse Ox O2 Delivery O2 Flow Rate FiO2 05/01/19 10:30 96.3 57 20 159/73 (101) 96 Room Air 96.3 05/01/19 03:00 3.0 Weight Weight [ ] I.O. Intake and Output Intake and Output 05/01/19 07:00 Intake Total 2031 ml Output Total 800 ml Balance 1231 ml Intake Oral 630 ml IV Total 1401 ml Output Urine Total 800 ml Labs Labs Laboratory Tests Test 04/30/19 13:10 04/30/19 20:15 05/01/19 03:00 Heparin Anti-Xa Act, Unfractionated 0.31 IU/mL (0.30-0.70) 0.25 IU/mL (0.30-0.70) 0.30 IU/mL (0.30-0.70) White Blood Count 10.7 x10^3/uL (4.0-11.0) Red Blood Count 3.29 x10^6/uL (4.30-5.70) Hemoglobin 10.0 g/dL (13.0-17.5) Hematocrit 29.4 % (39.0-53.0) Mean Corpuscular Volume 89 fL (79-100) Mean Corpuscular Hemoglobin 30 pg (25-35) Mean Corpuscular Hemoglobin Concent 34 g/dL (31-37) Red Cell Distribution Width 14.5 % (11.5-14.5) Platelet Count 102 x10^3/uL (140-400) Neutrophils (%) (Auto) 92 % (31-73) Lymphocytes (%) (Auto) 6 % (24-48) Monocytes (%) (Auto) 3 % (0-9) Eosinophils (%) (Auto) 0 % (0-3) Basophils (%) (Auto) 0 % (0-3) Neutrophils # (Auto) 9.9 x10^3/uL (1.8-7.7) Lymphocytes # (Auto) 0.6 x10^3/uL (1.0-4.8) Monocytes # (Auto) 0.3 x10^3/uL (0.0-1.1) Eosinophils # (Auto) 0.0 x10^3/uL (0.0-0.7) Basophils # (Auto) 0.0 x10^3/uL (0.0-0.2) Erythrocyte Sedimentation Rate 95 (0-15) Sodium Level 143 mmol/L (136-145) Potassium Level 3.5 mmol/L (3.5-5.1) Chloride Level 108 mmol/L (98-107) Carbon Dioxide Level 25 mmol/L (21-32) Anion Gap 10 (6-14) Blood Urea Nitrogen 38 mg/dL (8-26) Creatinine 1.5 mg/dL (0.7-1.3) Estimated GFR (Cockcroft-Gault) 46.5 Glucose Level 169 mg/dL (70-99) Calcium Level 7.3 mg/dL (8.5-10.1) Micro Micro Microbiology 04/29/19 - Final, Resulted 04/29/19 - Final, Resulted 04/29/19 - Final, Resulted 04/29/19 - Preliminary, Resulted 04/29/19 - Preliminary, Resulted 04/29/19 - Preliminary, Resulted 04/29/19 Gram Stain Evaluation - Final, Resulted 04/29/19 Sputum Culture, Resulted Pending 04/29/19 Blood Culture - Preliminary, Resulted NO GROWTH AFTER 1 DAY Review of Systems Constitutional: yes: alert, oriented Ears/Nose/Throat: Yes: other Eyes: Yes: no symptom reported Pulmonary: Yes dyspnea Cardiovascular: Yes chest pain Gastrointestional: Yes: no symptom reported Genitourinary: Yes: no symptom reported Musculoskeletal: Yes: no symptom reported Psychiatric/Neurological: Yes: no symptom reported Endocrine: Yes: no symptom reported Physical Exam General Appearance: no apparent distress Skin: warm Respiratory: bilateral CTA Heart: S1S2 Abdomen: soft, bowel sounds present Genitourinary: bladder flat Neurology: alert, oriented, follow commands Musculoskeletal: low back pain Assessment Assessment IMP NSTEMI LEUCOCYTOSIS DYSPNEA ? PNEUMONIA RECENT KAJAL-RESOLVED CKD STAGE 3 CR AT BASELINE NEAR 1.5 HX OF PARTIAL LEFT NEPHRECTOMY/TUMOR RESECTION YEARS AGO HX OF NEPHROLITHIASIS HX OF BLADDER TUMOR RESECTION HTN HX PLAN HYDRATION CARDIOLOGY EVAL HEART CATH TODAY D/W CARDIOLOGY RISK OF CAN D/W PT WILL FOLLOW JARRELL OWENS MD May 01, 2019 12:02
[2019-05-01] MEDS: MORPHINE ER 15 MG TABLET.ER PO SCH ×2 (12:04→21:08)
[2019-05-01] MEDS: LORazepam 0.5 MG TABLET PO PRN ×2 (12:05→12:20)
[2019-05-01] MEDS: LEVOTHYROXINE 75 MCG TABLET PO SCH (12:20)
[2019-05-01] MEDS: MULTIVITAMIN with MINERAL TABLET. PO SCH (12:20)
[2019-05-01] MEDS: GABAPENTIN 300 MG CAPSULE. PO SCH ×3 (12:24→21:09)
[2019-05-01] MEDS: CALCIUM CARBONATE 500 MG TABLET PO SCH (12:25)
[2019-05-01] MEDS: PANTOPRAZOLE 40 MG TABLET.DR. PO SCH (12:25)
[2019-05-01] MEDS: methylPREDNISolone SOD SUCC PF 125 MG/2 ML VIAL. IV SCH ×2 (12:36→21:10)
[2019-05-01] MEDS ORDERED: NITROGLYCERIN PREMIX 250 ML IV PRN (13:15)
[2019-05-01] MEDS ORDERED: MORPHINE SULFATE 2 MG/ML VIAL. IV ONE (13:30)
--- NOTE | 2019-05-01 13:48 | PDOC ---
Infectious Disease Note Subjective Subjective pt is back from cath and angio, had 2 stents now ROS ROS no n/v/d/fever Vital Sign Vital Signs Vital Signs Date Time Temp Pulse Resp B/P (MAP) Pulse Ox O2 Delivery O2 Flow Rate FiO2 05/01/19 12:09 Room Air 05/01/19 10:30 96.3 57 20 159/73 (101) 96 96.3 05/01/19 03:00 3.0 Physical Exam PHYSICAL EXAM GENERAL: Alert and oriented gentleman, not in distress. VITAL SIGNS: Stable HEENT: NAD. NECK: Supple, no JVP, no lymphadenopathy. LUNGS: Clear. HEART: S1, S2 regular. ABDOMEN: Benign. EXTREMITIES: No edema, cyanosis. SKIN: Unremarkable. NEUROLOGIC: Alert, awake and appropriate. No focal neurologic deficit. Labs Lab Laboratory Tests Test 04/30/19 20:15 05/01/19 03:00 Heparin Anti-Xa Act, Unfractionated 0.25 IU/mL (0.30-0.70) 0.30 IU/mL (0.30-0.70) White Blood Count 10.7 x10^3/uL (4.0-11.0) Red Blood Count 3.29 x10^6/uL (4.30-5.70) Hemoglobin 10.0 g/dL (13.0-17.5) Hematocrit 29.4 % (39.0-53.0) Mean Corpuscular Volume 89 fL (79-100) Mean Corpuscular Hemoglobin 30 pg (25-35) Mean Corpuscular Hemoglobin Concent 34 g/dL (31-37) Red Cell Distribution Width 14.5 % (11.5-14.5) Platelet Count 102 x10^3/uL (140-400) Neutrophils (%) (Auto) 92 % (31-73) Lymphocytes (%) (Auto) 6 % (24-48) Monocytes (%) (Auto) 3 % (0-9) Eosinophils (%) (Auto) 0 % (0-3) Basophils (%) (Auto) 0 % (0-3) Neutrophils # (Auto) 9.9 x10^3/uL (1.8-7.7) Lymphocytes # (Auto) 0.6 x10^3/uL (1.0-4.8) Monocytes # (Auto) 0.3 x10^3/uL (0.0-1.1) Eosinophils # (Auto) 0.0 x10^3/uL (0.0-0.7) Basophils # (Auto) 0.0 x10^3/uL (0.0-0.2) Erythrocyte Sedimentation Rate 95 (0-15) Sodium Level 143 mmol/L (136-145) Potassium Level 3.5 mmol/L (3.5-5.1) Chloride Level 108 mmol/L (98-107) Carbon Dioxide Level 25 mmol/L (21-32) Anion Gap 10 (6-14) Blood Urea Nitrogen 38 mg/dL (8-26) Creatinine 1.5 mg/dL (0.7-1.3) Estimated GFR (Cockcroft-Gault) 46.5 Glucose Level 169 mg/dL (70-99) Calcium Level 7.3 mg/dL (8.5-10.1) Micro culture neg Objective Assessment Pneumonia/CHF KAJAL Troponin leak Leukocytosis Recent hospitalization AMI s/p angio and stenting Plan Plan of Care bc sputum culture zosyn,, soon to change to po augmentin supportive care MOHIT CALLAHAN MD May 01, 2019 13:48
[2019-05-01] MEDS: ALBUTEROL SULFATE 2.5 MG/3 ML NEBU. NEB PRN (14:38)
[2019-05-01 14:55] LABS: BILIRUBIN,URINE NEGATIVE (NEG); CLARITY,URINE CLEAR; COLOR,URINE YELLOW; NITRITE,URINE NEGATIVE (NEG); PH,URINE 5.5; PROTEIN,URINE NEGATIVE (NEG-TRACE)
[2019-05-01 15:06] LABS: BACTERIA,URINE 0 /HPF (0-FEW); RBC,URINE OCC /HPF (0-2); SQUAMOUS EPITHELIAL CELL,UR FEW /LPF; WBC,URINE 0 /HPF (0-4)
[2019-05-01] MEDS: ASPIRIN ENTERIC COATED 81 MG TABLET.DR. PO SCH (15:56)
[2019-05-01] MEDS: tiZANidine 4 MG TABLET. PO PRN ×2 (16:00→22:09)
--- NOTE | 2019-05-01 16:20 | NUR ---
Patient's R groin cath site was oozing blood ever since he came back from laboratory [facility] at 1030, dressing was changed 3 times, manual pressure was applied, femstop was applied at 1215 which stopped it, removed femstop at 1620. Dr. Shafer was made aware of this & patient's elevated BP. Nitro gtt ordered for BP. Will continue to monitor.
--- NOTE | 2019-05-01 17:45 | PDOC4 ---
PROCEDURE Procedure Brief procedure note. 80% mid LAD lesion, 75% RCA lesion. Bare metal stents to both sites. 0% residual lesions. Continue post op protocol. Discussed with the patient. Full report to follow. SUSAN KATHLEEN MD May 01, 2019 17:45
[2019-05-01] MEDS: DOCUSATE SODIUM 100 MG CAPSULE. PO PRN (21:09)
[2019-05-01] MEDS: ATORVASTATIN CALCIUM 10 MG TABLET. PO SCH (21:09)
[2019-05-02] VITALS (18 sets, daily range): BP systolic 115–194; BP diastolic 56–91
[2019-05-02] MEDS: IV NORMAL SALINE 1000ML BAG 1,000 ML IV SCH ×4 (00:56→23:20)
[2019-05-02] MEDS: PIPERACILLIN/TAZOBACTAM 3.375 GM in IV NORMAL SALINE 50ML 50 ML IV SCH (05:05)
[2019-05-02 05:30] LABS: BASO % 0 % (0-3); EOS % 0 % (0-3); HEMATOCRIT 29.9 % (39.0-53.0); HEMOGLOBIN 10.2 g/dL (13.0-17.5); LYMPH # 0.5 x10^3/uL (1.0-4.8); LYMPH % 5 % (24-48); MEAN CORPUSCULAR HEMOGLOBIN 31 pg (25-35); MEAN CORPUSCULAR HGB CONC 34 g/dL (31-37); MEAN CORPUSCULAR VOLUME 89 fL (79-100); MONO # 0.3 x10^3/uL (0.0-1.1); MONO % 3 % (0-9); NEUT # 9.2 x10^3/uL (1.8-7.7); NEUT % 92 % (31-73); PLATELET COUNT 109 x10^3/uL (140-400); RED BLOOD COUNT 3.35 x10^6/uL (4.30-5.70); RED CELL DISTRIBUTION WIDTH 14.7 % (11.5-14.5); WHITE BLOOD COUNT 10.1 x10^3/uL (4.0-11.0)
[2019-05-02 06:00] LABS: CALCIUM 7.4 mg/dL (8.5-10.1); CREATININE 1.6 mg/dL (0.7-1.3); GFR 43.2; POTASSIUM 3.4 mmol/L (3.5-5.1)
--- NOTE | 2019-05-02 06:23 | EKG ---
[facility] [address] [place] [address] Test Date: 2019-05-02 Test Time: 07:11:24 Pat Name: KIKI JOYNER Department: Room: 206 Gender: M Building Maintenance Supervisor: ROBERT : 1950 Requested By: SUSAN KATHLEEN Order Number: [id number] Reading MD: Measurements Intervals [place] Rate: 53 P: 41 IL: 182 QRS: 12 QRSD: 96 T: 17 QT: 500 QTc: 476 Interpretive Statements SINUS RHYTHM PROLONGED QT NO SPECIFIC ECG ABNORMALITIES RI6.02 No previous ECG available for comparison
--- NOTE | 2019-05-02 07:24 | PDOC ---
PULMONARY PROGRESS NOTES Subjective sob better, has cough, OFF BIPAP Vitals Vital Signs Date Time Temp Pulse Resp B/P (MAP) Pulse Ox O2 Delivery O2 Flow Rate FiO2 05/02/19 06:23 53 172/83 (112) 05/02/19 04:43 97.7 94 Room Air 97.7 05/02/19 03:18 18 2.0 ROS: No Nausea, No Chest Pain, No Abdominal Pain, No Increase Cough General: Alert HEENT: Other (nc at perrl ) Lungs: Crackles Cardiovascular: S1, S2 Abdomen: Soft, Non-tender Neuro Exam: Alert Extremities: No Edema Skin: Warm Labs Laboratory Tests Test 04/30/19 13:10 04/30/19 20:15 05/01/19 03:00 05/01/19 14:45 Heparin Anti-Xa Act, Unfractionated 0.31 IU/mL (0.30-0.70) 0.25 IU/mL (0.30-0.70) 0.30 IU/mL (0.30-0.70) White Blood Count 10.7 x10^3/uL (4.0-11.0) Red Blood Count 3.29 x10^6/uL (4.30-5.70) Hemoglobin 10.0 g/dL (13.0-17.5) Hematocrit 29.4 % (39.0-53.0) Mean Corpuscular Volume 89 fL (79-100) Mean Corpuscular Hemoglobin 30 pg (25-35) Mean Corpuscular Hemoglobin Concent 34 g/dL (31-37) Red Cell Distribution Width 14.5 % (11.5-14.5) Platelet Count 102 x10^3/uL (140-400) Neutrophils (%) (Auto) 92 % (31-73) Lymphocytes (%) (Auto) 6 % (24-48) Monocytes (%) (Auto) 3 % (0-9) Eosinophils (%) (Auto) 0 % (0-3) Basophils (%) (Auto) 0 % (0-3) Neutrophils # (Auto) 9.9 x10^3/uL (1.8-7.7) Lymphocytes # (Auto) 0.6 x10^3/uL (1.0-4.8) Monocytes # (Auto) 0.3 x10^3/uL (0.0-1.1) Eosinophils # (Auto) 0.0 x10^3/uL (0.0-0.7) Basophils # (Auto) 0.0 x10^3/uL (0.0-0.2) Erythrocyte Sedimentation Rate 95 (0-15) Sodium Level 143 mmol/L (136-145) Potassium Level 3.5 mmol/L (3.5-5.1) Chloride Level 108 mmol/L (98-107) Carbon Dioxide Level 25 mmol/L (21-32) Anion Gap 10 (6-14) Blood Urea Nitrogen 38 mg/dL (8-26) Creatinine 1.5 mg/dL (0.7-1.3) Estimated GFR (Cockcroft-Gault) 46.5 Glucose Level 169 mg/dL (70-99) Calcium Level 7.3 mg/dL (8.5-10.1) Urine Collection Type Unknown Urine Color Yellow Urine Clarity Clear Urine pH 5.5 Urine Specific Panther >=1.030 Urine Protein Negative mg/dL (NEG-TRACE) Urine Glucose (UA) Negative mg/dL (NEG) Urine Ketones (Stick) Negative mg/dL (NEG) Urine Blood Negative (NEG) Urine Nitrite Negative (NEG) Urine Bilirubin Negative (NEG) Urine Urobilinogen Dipstick 1.0 mg/dL (0.2 mg/dL) Urine Leukocyte Esterase Negative (NEG) Urine RBC Occ /HPF (0-2) Urine WBC 0 /HPF (0-4) Urine Squamous Epithelial Cells Few /LPF Urine Bacteria 0 /HPF (0-FEW) Test 05/02/19 05:00 White Blood Count 10.1 x10^3/uL (4.0-11.0) Red Blood Count 3.35 x10^6/uL (4.30-5.70) Hemoglobin 10.2 g/dL (13.0-17.5) Hematocrit 29.9 % (39.0-53.0) Mean Corpuscular Volume 89 fL (79-100) Mean Corpuscular Hemoglobin 31 pg (25-35) Mean Corpuscular Hemoglobin Concent 34 g/dL (31-37) Red Cell Distribution Width 14.7 % (11.5-14.5) Platelet Count 109 x10^3/uL (140-400) Neutrophils (%) (Auto) 92 % (31-73) Lymphocytes (%) (Auto) 5 % (24-48) Monocytes (%) (Auto) 3 % (0-9) Eosinophils (%) (Auto) 0 % (0-3) Basophils (%) (Auto) 0 % (0-3) Neutrophils # (Auto) 9.2 x10^3/uL (1.8-7.7) Lymphocytes # (Auto) 0.5 x10^3/uL (1.0-4.8) Monocytes # (Auto) 0.3 x10^3/uL (0.0-1.1) Eosinophils # (Auto) 0.0 x10^3/uL (0.0-0.7) Basophils # (Auto) 0.0 x10^3/uL (0.0-0.2) Sodium Level 146 mmol/L (136-145) Potassium Level 3.4 mmol/L (3.5-5.1) Chloride Level 110 mmol/L (98-107) Carbon Dioxide Level 25 mmol/L (21-32) Anion Gap 11 (6-14) Blood Urea Nitrogen 39 mg/dL (8-26) Creatinine 1.6 mg/dL (0.7-1.3) Estimated GFR (Cockcroft-Gault) 43.2 Glucose Level 147 mg/dL (70-99) Calcium Level 7.4 mg/dL (8.5-10.1) Laboratory Tests Test 05/01/19 14:45 05/02/19 05:00 Urine Collection Type Unknown Urine Color Yellow Urine Clarity Clear Urine pH 5.5 Urine Specific Panther >=1.030 Urine Protein Negative mg/dL (NEG-TRACE) Urine Glucose (UA) Negative mg/dL (NEG) Urine Ketones (Stick) Negative mg/dL (NEG) Urine Blood Negative (NEG) Urine Nitrite Negative (NEG) Urine Bilirubin Negative (NEG) Urine Urobilinogen Dipstick 1.0 mg/dL (0.2 mg/dL) Urine Leukocyte Esterase Negative (NEG) Urine RBC Occ /HPF (0-2) Urine WBC 0 /HPF (0-4) Urine Squamous Epithelial Cells Few /LPF Urine Bacteria 0 /HPF (0-FEW) White Blood Count 10.1 x10^3/uL (4.0-11.0) Red Blood Count 3.35 x10^6/uL (4.30-5.70) Hemoglobin 10.2 g/dL (13.0-17.5) Hematocrit 29.9 % (39.0-53.0) Mean Corpuscular Volume 89 fL (79-100) Mean Corpuscular Hemoglobin 31 pg (25-35) Mean Corpuscular Hemoglobin Concent 34 g/dL (31-37) Red Cell Distribution Width 14.7 % (11.5-14.5) Platelet Count 109 x10^3/uL (140-400) Neutrophils (%) (Auto) 92 % (31-73) Lymphocytes (%) (Auto) 5 % (24-48) Monocytes (%) (Auto) 3 % (0-9) Eosinophils (%) (Auto) 0 % (0-3) Basophils (%) (Auto) 0 % (0-3) Neutrophils # (Auto) 9.2 x10^3/uL (1.8-7.7) Lymphocytes # (Auto) 0.5 x10^3/uL (1.0-4.8) Monocytes # (Auto) 0.3 x10^3/uL (0.0-1.1) Eosinophils # (Auto) 0.0 x10^3/uL (0.0-0.7) Basophils # (Auto) 0.0 x10^3/uL (0.0-0.2) Sodium Level 146 mmol/L (136-145) Potassium Level 3.4 mmol/L (3.5-5.1) Chloride Level 110 mmol/L (98-107) Carbon Dioxide Level 25 mmol/L (21-32) Anion Gap 11 (6-14) Blood Urea Nitrogen 39 mg/dL (8-26) Creatinine 1.6 mg/dL (0.7-1.3) Estimated GFR (Cockcroft-Gault) 43.2 Glucose Level 147 mg/dL (70-99) Calcium Level 7.4 mg/dL (8.5-10.1) Medications Active Scripts Medications Dose Route/Sig Max Daily Dose Days Date Category Butrans (Buprenorphine) 1 Each Patch.tdwk 1 Patch TP WEEKLY 04/28/19 Reported Carvedilol 25 Mg Tablet 25 Mg PO BIDWMEALS 04/28/19 Reported Levothyroxine Sodium 75 Mcg Tablet 75 Mcg PO DAILYAC 04/28/19 Reported Calcium Citrate 250 Mg Tablet 250 Mg PO DAILY 04/28/19 Reported Multivitamins (Multivitamin) 1 Each Tablet 1 Tab PO DAILY 04/28/19 Reported Omeprazole 20 Mg Capsule.dr 20 Mg PO BID 04/28/19 Reported Tizanidine Hcl 4 Mg Tablet 4 Mg PO TID PRN 04/28/19 Reported Gabapentin (Gabapentin) 300 Mg Capsule 600 Mg PO TID 01/19/16 Reported Pravastatin Sodium 10 Mg Tablet 1 Tab PO DAILY 01/19/16 Reported Aspir 81 (Aspirin) 81 Mg Tablet.dr 1 Tab PO DAILY 01/19/16 Reported Morphine Sulfate 15 Mg Tablet 1 Tab PO BID 01/19/16 Reported Impression . IMPRESSION: 1. Acute respiratory failure, multifactorial. 2. Abnormal CT revealing ground-glass opacities, compatible with acute lung injury. POSSIBLE CARDIOGENIC PULMONARY EDEMA 3. Possible pneumonia, gram-negative and gram-positive. 4. Coronary artery disease, status post stent placement in 2012. 5. Hemoptysis, secondary to ground-glass opacities, compatible with acute lung injury. 6. History of tuberculosis, details unknown. 7. Tobacco dependent, in remission. 8. Chronic obstructive pulmonary disease. 9. History of bladder cancer and renal cell tumor resection. 10. Chronic kidney disease. 11. POSSIBLE UNILATERAL EDEMA CARDIAC IN NATURE Plan . OFF BIPAP 02 titration keep I<O FOLLOW CARD INPUT ANTIBX change solumedrol to [address] IN 2 MONTHS NO FURTHER MASSIVE HEMOPTYSIS GONZALO DASILVA MD May 02, 2019 07:24
[2019-05-02] MEDS: CARVEDILOL 12.5 MG TABLET. PO SCH ×2 (08:00→17:00)
[2019-05-02] MEDS: LEVOTHYROXINE 75 MCG TABLET PO SCH (08:47)
[2019-05-02] MEDS: TICAGRELOR 90 MG TABLET. PO SCH ×2 (08:47→21:06)
[2019-05-02] MEDS: PANTOPRAZOLE 40 MG TABLET.DR. PO SCH (08:47)
[2019-05-02] MEDS: GABAPENTIN 300 MG CAPSULE. PO SCH ×3 (08:47→21:06)
[2019-05-02] MEDS: ASPIRIN ENTERIC COATED 81 MG TABLET.DR. PO SCH (08:47)
[2019-05-02] MEDS: MORPHINE ER 15 MG TABLET.ER PO SCH ×2 (08:49→21:05)
[2019-05-02] MEDS: MULTIVITAMIN with MINERAL TABLET. PO SCH (09:00)
[2019-05-02] MEDS: CALCIUM CARBONATE 500 MG TABLET PO SCH (09:00)
[2019-05-02] MEDS ORDERED: POTASSIUM CHLORIDE 20 MEQ TABLET.ER. PO ONE (09:30)
[2019-05-02] MEDS ORDERED: ONDANSETRON PF 4 MG/2 ML VIAL. IV PRN (09:30)
--- NOTE | 2019-05-02 10:01 | PDOC ---
PROGRESS NOTES Chief Complaint Chief Complaint 1. NSTEMI: s/p LHC 2 stents (05/01) 2. HYPOTENSIOn - s/p off pressor 2. Hemoptysis , resolved 3. KAJAL - creat 4 now 1.6 Multifocal bilateral ground glass opacities and consolidations, greatest in the right lung and likely representing multifocal infection. 3. Hx of TB as child 4. CAD: 2 stents with last placed in 2012. [facility] 6. hyperlipidemia 7. Hx of bladder CA and left renal tumor resection 8. CKD: 9. hx of tobacco use, quit 10. hypothyroid on replacement 11. peripheral neuropathy History of Present Illness History of Present Illness s/p angio and lHC and now has 2 stents On notro gtt NOheadcahe, no cp, vs stable LAbs ok chart reviewed off heparin gtt PLAn: Still on nitro gtt follow cards recs NOw has 2 cardiac stents Add pt.ot? creat 1,6 now and creeping up, monitor, re check tmr, if worsens might need renal on board k low side, KCl 20 PO x1 today Vitals Vitals Vital Signs Date Time Temp Pulse Resp B/P (MAP) Pulse Ox O2 Delivery O2 Flow Rate FiO2 05/02/19 08:58 44 05/02/19 08:50 94 Nasal Cannula 05/02/19 07:00 97.4 16 132/69 (90) 97.4 05/02/19 03:18 2.0 Physical Exam Physical Exam GENERAL: Alert and oriented gentleman, not in distress. VITAL SIGNS: Stable HEENT: NAD. NECK: Supple, no JVP, no lymphadenopathy. LUNGS: Clear. HEART: S1, S2 regular. ABDOMEN: Benign. EXTREMITIES: No edema, cyanosis. SKIN: Unremarkable. NEUROLOGIC: Alert, awake and appropriate. No focal neurologic deficit. General: Alert, Oriented X3, Cooperative Heart: Regular rate Lungs: Clear Abdomen: Normal bowel sounds, Soft, No tenderness Extremities: No clubbing Skin: No breakdown Labs LABS Laboratory Tests Test 05/01/19 14:45 05/02/19 05:00 Urine Collection Type Unknown Urine Color Yellow Urine Clarity Clear Urine pH 5.5 Urine Specific [place] >=1.030 Urine Protein Negative mg/dL (NEG-TRACE) Urine Glucose (UA) Negative mg/dL (NEG) Urine Ketones (Stick) Negative mg/dL (NEG) Urine Blood Negative (NEG) Urine Nitrite Negative (NEG) Urine Bilirubin Negative (NEG) Urine Urobilinogen Dipstick 1.0 mg/dL (0.2 mg/dL) Urine Leukocyte Esterase Negative (NEG) Urine RBC Occ /HPF (0-2) Urine WBC 0 /HPF (0-4) Urine Squamous Epithelial Cells Few /LPF Urine Bacteria 0 /HPF (0-FEW) White Blood Count 10.1 x10^3/uL (4.0-11.0) Red Blood Count 3.35 x10^6/uL (4.30-5.70) Hemoglobin 10.2 g/dL (13.0-17.5) Hematocrit 29.9 % (39.0-53.0) Mean Corpuscular Volume 89 fL (79-100) Mean Corpuscular Hemoglobin 31 pg (25-35) Mean Corpuscular Hemoglobin Concent 34 g/dL (31-37) Red Cell Distribution Width 14.7 % (11.5-14.5) Platelet Count 109 x10^3/uL (140-400) Neutrophils (%) (Auto) 92 % (31-73) Lymphocytes (%) (Auto) 5 % (24-48) Monocytes (%) (Auto) 3 % (0-9) Eosinophils (%) (Auto) 0 % (0-3) Basophils (%) (Auto) 0 % (0-3) Neutrophils # (Auto) 9.2 x10^3/uL (1.8-7.7) Lymphocytes # (Auto) 0.5 x10^3/uL (1.0-4.8) Monocytes # (Auto) 0.3 x10^3/uL (0.0-1.1) Eosinophils # (Auto) 0.0 x10^3/uL (0.0-0.7) Basophils # (Auto) 0.0 x10^3/uL (0.0-0.2) Sodium Level 146 mmol/L (136-145) Potassium Level 3.4 mmol/L (3.5-5.1) Chloride Level 110 mmol/L (98-107) Carbon Dioxide Level 25 mmol/L (21-32) Anion Gap 11 (6-14) Blood Urea Nitrogen 39 mg/dL (8-26) Creatinine 1.6 mg/dL (0.7-1.3) Estimated GFR (Cockcroft-Gault) 43.2 Glucose Level 147 mg/dL (70-99) Calcium Level 7.4 mg/dL (8.5-10.1) Review of Systems Review of Systems neg cp, noeg soa, neg abd issues, neg fever, neg depression Assessment and Plan Assessmemt and Plan Problems Medical Problems: (1) CAD (coronary artery disease) Status: Chronic (2) CKD (chronic kidney disease) Status: Chronic (3) Hemoptysis Status: Acute (4) HLD (hyperlipidemia) Status: Chronic (5) HTN (hypertension) Status: Chronic (6) Hypothyroid Status: Chronic (7) NSTEMI (non-ST elevated myocardial infarction) Status: Acute (8) Peripheral neuropathy Status: Chronic Comment Review of Relevant I have reviewed the following items josseline (where applicable) has been applied. Labs Laboratory Tests Test 04/30/19 13:10 04/30/19 20:15 05/01/19 03:00 05/01/19 14:45 Heparin Anti-Xa Act, Unfractionated 0.31 IU/mL (0.30-0.70) 0.25 IU/mL (0.30-0.70) 0.30 IU/mL (0.30-0.70) White Blood Count 10.7 x10^3/uL (4.0-11.0) Red Blood Count 3.29 x10^6/uL (4.30-5.70) Hemoglobin 10.0 g/dL (13.0-17.5) Hematocrit 29.4 % (39.0-53.0) Mean Corpuscular Volume 89 fL (79-100) Mean Corpuscular Hemoglobin 30 pg (25-35) Mean Corpuscular Hemoglobin Concent 34 g/dL (31-37) Red Cell Distribution Width 14.5 % (11.5-14.5) Platelet Count 102 x10^3/uL (140-400) Neutrophils (%) (Auto) 92 % (31-73) Lymphocytes (%) (Auto) 6 % (24-48) Monocytes (%) (Auto) 3 % (0-9) Eosinophils (%) (Auto) 0 % (0-3) Basophils (%) (Auto) 0 % (0-3) Neutrophils # (Auto) 9.9 x10^3/uL (1.8-7.7) Lymphocytes # (Auto) 0.6 x10^3/uL (1.0-4.8) Monocytes # (Auto) 0.3 x10^3/uL (0.0-1.1) Eosinophils # (Auto) 0.0 x10^3/uL (0.0-0.7) Basophils # (Auto) 0.0 x10^3/uL (0.0-0.2) Erythrocyte Sedimentation Rate 95 (0-15) Sodium Level 143 mmol/L (136-145) Potassium Level 3.5 mmol/L (3.5-5.1) Chloride Level 108 mmol/L (98-107) Carbon Dioxide Level 25 mmol/L (21-32) Anion Gap 10 (6-14) Blood Urea Nitrogen 38 mg/dL (8-26) Creatinine 1.5 mg/dL (0.7-1.3) Estimated GFR (Cockcroft-Gault) 46.5 Glucose Level 169 mg/dL (70-99) Calcium Level 7.3 mg/dL (8.5-10.1) Urine Collection Type Unknown Urine Color Yellow Urine Clarity Clear Urine pH 5.5 Urine Specific [place] >=1.030 Urine Protein Negative mg/dL (NEG-TRACE) Urine Glucose (UA) Negative mg/dL (NEG) Urine Ketones (Stick) Negative mg/dL (NEG) Urine Blood Negative (NEG) Urine Nitrite Negative (NEG) Urine Bilirubin Negative (NEG) Urine Urobilinogen Dipstick 1.0 mg/dL (0.2 mg/dL) Urine Leukocyte Esterase Negative (NEG) Urine RBC Occ /HPF (0-2) Urine WBC 0 /HPF (0-4) Urine Squamous Epithelial Cells Few /LPF Urine Bacteria 0 /HPF (0-FEW) Test 05/02/19 05:00 White Blood Count 10.1 x10^3/uL (4.0-11.0) Red Blood Count 3.35 x10^6/uL (4.30-5.70) Hemoglobin 10.2 g/dL (13.0-17.5) Hematocrit 29.9 % (39.0-53.0) Mean Corpuscular Volume 89 fL (79-100) Mean Corpuscular Hemoglobin 31 pg (25-35) Mean Corpuscular Hemoglobin Concent 34 g/dL (31-37) Red Cell Distribution Width 14.7 % (11.5-14.5) Platelet Count 109 x10^3/uL (140-400) Neutrophils (%) (Auto) 92 % (31-73) Lymphocytes (%) (Auto) 5 % (24-48) Monocytes (%) (Auto) 3 % (0-9) Eosinophils (%) (Auto) 0 % (0-3) Basophils (%) (Auto) 0 % (0-3) Neutrophils # (Auto) 9.2 x10^3/uL (1.8-7.7) Lymphocytes # (Auto) 0.5 x10^3/uL (1.0-4.8) Monocytes # (Auto) 0.3 x10^3/uL (0.0-1.1) Eosinophils # (Auto) 0.0 x10^3/uL (0.0-0.7) Basophils # (Auto) 0.0 x10^3/uL (0.0-0.2) Sodium Level 146 mmol/L (136-145) Potassium Level 3.4 mmol/L (3.5-5.1) Chloride Level 110 mmol/L (98-107) Carbon Dioxide Level 25 mmol/L (21-32) Anion Gap 11 (6-14) Blood Urea Nitrogen 39 mg/dL (8-26) Creatinine 1.6 mg/dL (0.7-1.3) Estimated GFR (Cockcroft-Gault) 43.2 Glucose Level 147 mg/dL (70-99) Calcium Level 7.4 mg/dL (8.5-10.1) Laboratory Tests Test 05/01/19 14:45 05/02/19 05:00 Urine Collection Type Unknown Urine Color Yellow Urine Clarity Clear Urine pH 5.5 Urine Specific [place] >=1.030 Urine Protein Negative mg/dL (NEG-TRACE) Urine Glucose (UA) Negative mg/dL (NEG) Urine Ketones (Stick) Negative mg/dL (NEG) Urine Blood Negative (NEG) Urine Nitrite Negative (NEG) Urine Bilirubin Negative (NEG) Urine Urobilinogen Dipstick 1.0 mg/dL (0.2 mg/dL) Urine Leukocyte Esterase Negative (NEG) Urine RBC Occ /HPF (0-2) Urine WBC 0 /HPF (0-4) Urine Squamous Epithelial Cells Few /LPF Urine Bacteria 0 /HPF (0-FEW) White Blood Count 10.1 x10^3/uL (4.0-11.0) Red Blood Count 3.35 x10^6/uL (4.30-5.70) Hemoglobin 10.2 g/dL (13.0-17.5) Hematocrit 29.9 % (39.0-53.0) Mean Corpuscular Volume 89 fL (79-100) Mean Corpuscular Hemoglobin 31 pg (25-35) Mean Corpuscular Hemoglobin Concent 34 g/dL (31-37) Red Cell Distribution Width 14.7 % (11.5-14.5) Platelet Count 109 x10^3/uL (140-400) Neutrophils (%) (Auto) 92 % (31-73) Lymphocytes (%) (Auto) 5 % (24-48) Monocytes (%) (Auto) 3 % (0-9) Eosinophils (%) (Auto) 0 % (0-3) Basophils (%) (Auto) 0 % (0-3) Neutrophils # (Auto) 9.2 x10^3/uL (1.8-7.7) Lymphocytes # (Auto) 0.5 x10^3/uL (1.0-4.8) Monocytes # (Auto) 0.3 x10^3/uL (0.0-1.1) Eosinophils # (Auto) 0.0 x10^3/uL (0.0-0.7) Basophils # (Auto) 0.0 x10^3/uL (0.0-0.2) Sodium Level 146 mmol/L (136-145) Potassium Level 3.4 mmol/L (3.5-5.1) Chloride Level 110 mmol/L (98-107) Carbon Dioxide Level 25 mmol/L (21-32) Anion Gap 11 (6-14) Blood Urea Nitrogen 39 mg/dL (8-26) Creatinine 1.6 mg/dL (0.7-1.3) Estimated GFR (Cockcroft-Gault) 43.2 Glucose Level 147 mg/dL (70-99) Calcium Level 7.4 mg/dL (8.5-10.1) Microbiology 04/29/19 - Final, Complete 04/29/19 - Final, Complete 04/29/19 - Final, Complete 04/29/19 - Final, Complete 04/29/19 - Final, Complete 04/29/19 - Final, Complete 04/29/19 Gram Stain Evaluation - Final, Complete 04/29/19 Sputum Culture - Final, Complete 04/29/19 Blood Culture - Preliminary, Resulted NO GROWTH AFTER 2 DAYS Medications Current Medications Sodium Chloride 1,000 ml @ 100 mls/hr 1X ONCE IV Last administered on 04/28/19at 17:41; Start 04/28/19 at 17:15; Stop 04/29/19 at 03:14; Status DC Heparin Sodium/ Dextrose 500 ml @ 0 mls/hr CONT PRN IV cvc protocol Last administered on 05/01/19 03:08; Start 04/28/19 at 17:15 Heparin Sodium (Porcine) (Heparin Sodium) 2,350 unit PRN Q6HRS PRN IV FOR UFH LEVEL LESS THAN 0.2 Last administered on 04/30/19at 08:16; Start 04/28/19 at 17:15 Info (Anti-Coagulation Monitoring By Pharmacy) 1 each PRN DAILY PRN MC SEE COMMENTS Last administered on 04/29/19at 09:36; Start 04/28/19 at 17:30 Magnesium Sulfate/ Dextrose 100 ml @ 25 mls/hr 1X ONCE IV Last administered on 04/28/19 17:41; Start 04/28/19 at 18:00; Stop 04/28/19 at 21:59; Status DC Aspirin (Ecotrin) 81 mg DAILY PO Last administered on 05/02/19at 08:50; Start at 09:00 Gabapentin (Neurontin) 600 mg TID PO Last administered on 05/02/19at 08:50; Start 04/28/19 at 21:00 Tizanidine HCl (Zanaflex) 4 mg PRN TID PRN PO MUSCLE SPASMS Last administered on 05/01/19 22:09; Start 04/28/19 at 18:00 Calcium Carbonate/ Glycine (Oscal) 500 mg DAILY PO Last administered on 05/01/19 12:41; Start 04/29/19 at 09:00 Multivitamins (Thera M Plus) 1 tab DAILY PO Last administered on 05/01/19 12:41; Start 04/29/19 at 09:00 Pantoprazole Sodium (Protonix) 40 mg DAILYAC PO Last administered on 05/02/19 08:50; Start 04/29/19 at 07:30 Atorvastatin Calcium (Lipitor) 5 mg QHS PO Last administered on 05/01/19at 21:10; Start 04/28/19 at 21:00 Morphine Sulfate (Ms Contin) 15 mg BID PO Last administered on 05/02/19at 08:50; Start 04/28/19 at 21:00 Levothyroxine Sodium (Synthroid) 75 mcg DAILYAC PO Last administered on 05/02/19at 08:50; Start 04/29/19 at 07:30 Non-Formulary Medication (Buprenorphine (Butrans)) 1 patch WEEKLY TP ; Start 05/05/19 at 09:00; Status UNV Carvedilol (Coreg) 25 mg BIDWMEALS PO Last administered on 04/28/19at 21:01; Start 04/28/19 at 18:30 Sodium Chloride (Normal Saline Flush) 3 ml QSHIFT PRN IV AFTER MEDS AND BLOOD DRAWS; Start 04/28/19 at 18:15 Sodium Chloride 1,000 ml @ 100 mls/hr Q10H IV ; Start 04/28/19 at 18:05; Stop 04/29/19 at 01:59; Status DC Ondansetron HCl (Zofran) 4 mg PRN Q4HRS PRN IV NAUSEA/VOMITING; Start 04/28/19 at 18:15; Stop 05/02/19 at 09:31; Status DC Acetaminophen (Tylenol) 650 mg PRN Q4HRS PRN PO TEMP OVER 100.4F OR MILD PAIN; Start 04/28/19 at 18:15; Stop 05/02/19 at 07:19; Status DC Al Hydroxide/Mg Hydroxide (Mylanta Plus Xs) 30 ml PRN DAILY PRN PO HEARTBURN / GAS; Start 04/28/19 at 18:15 Clonidine HCl (Catapres) 0.1 mg PRN Q6HRS PRN PO SBP>160 OR DBP>90; Start 04/28/19 at 18:15 Sodium Monofluorophosphate (Fleet Adult) 133 ml PRN DAILY PRN LA CONSTIPATION; Start 04/28/19 at 18:15 Docusate Sodium (Colace) 100 mg PRN BID PRN PO CONSTIPATION Last administered on 8/16/19at 21:10; Start 04/28/19 at 18:15 Albuterol Sulfate (Ventolin Neb Soln) 2.5 mg PRN Q4HRS PRN NEB SHORTNESS OF BREATH Last administered on 05/01/19 14:40; Start 04/28/19 at 18:15 Guaifenesin (Robitussin) 200 mg PRN Q4HRS PRN PO COUGH; Start 04/28/19 at 18:15 Lorazepam (Ativan) 0.5 mg PRN Q4HRS PRN PO ANXIETY / AGITATION Last administered on 05/01/19 12:41; Start 04/28/19 at 18:15 Dopamine HCl/ Dextrose 250 ml @ 10.643 mls/ hr 1X ONCE IV Last administered on 04/29/19 02:22; Start 04/29/19 at 02:00; Stop 04/29/19 at 09:52; Status DC Sodium Chloride 1,000 ml @ 75 mls/hr [id number] IV Last administered on 05/01/19at 21:10; Start 04/29/19 at 02:00 Methylprednisolone Sodium Succinate (SOLU-Medrol 125MG VIAL) 125 mg 1X ONCE IV Last administered on 04/29/19 07:20; Start 04/29/19 at 06:30; Stop 04/29/19 at 06:31; Status DC Methylprednisolone Sodium Succinate (SOLU-Medrol 125MG VIAL) 125 mg BID IV Last administered on 05/01/19 21:10; Start 04/29/19 at 21:00; Stop 05/02/19 at 07:25; Status DC Piperacillin Sod/ Tazobactam Sod 3.375 gm/Sodium Chloride 50 ml @ 100 mls/hr Q8HRS IV Last administered on 05/02/19at 05:05; Start 04/29/19 at 14:00 Acetaminophen (Tylenol) 500 mg PRN Q6HRS PRN PO MILD PAIN / TEMP; Start 04/29/19 at 09:00 Acetaminophen/ Codeine Phosphate (Tylenol #3) 1 tab PRN Q6HRS PRN PO MODERATE PAIN; Start 04/29/19 at 09:00 Dopamine HCl/ Dextrose 250 ml @ 6.959 mls/ hr CONT PRN IV SEE I/O RECORD Last administered on 04/30/19at 10:10; Start 04/29/19 at 10:00 Fentanyl Citrate (Fentanyl 2ml Vial) 100 mcg STK-MED ONCE .ROUTE ; Start 05/01/19 at 08:37; Stop 05/01/19 at 08:37; Status DC Midazolam HCl (Versed) 2 mg STK-MED ONCE .ROUTE ; Start 05/01/19 at 08:37; Stop 05/01/19 at 08:38; Status DC Bivalirudin (Angiomax) 250 mg STK-MED ONCE IV ; Start 05/01/19 at 09:21; Stop 05/01/19 at 09:21; Status DC Midazolam HCl (Versed) 2 mg STK-MED ONCE .ROUTE ; Start 05/01/19 at 09:25; Stop 05/01/19 at 09:25; Status DC Iodixanol (Visipaque 320) 100 ml STK-MED ONCE .ROUTE ; Start 05/01/19 at 09:37; Stop 05/01/19 at 09:37; Status DC Ticagrelor (Brilinta) 90 mg STK-MED ONCE .ROUTE ; Start 05/01/19 at 09:51; Stop 05/01/19 at 09:51; Status DC Heparin Sodium/ Sodium Chloride (HEPARIN for ARTERIAL LINE FLUSH) 1,000 unit 1X ONCE IART Last administered on 05/01/19at 10:09; Start 05/01/19 at 10:00; Stop 05/01/19 at 10:06; Status DC Midazolam HCl (Versed) 3 mg 1X ONCE IV Last administered on 05/01/19at 10:09; Start 05/01/19 at 10:00; Stop 05/01/19 at 10:06; Status DC Fentanyl Citrate (Fentanyl 2ml Vial) 37.5 mcg 1X ONCE IV Last administered on 05/01/19at 10:09; Start 05/01/19 at 10:00; Stop 05/01/19 at 10:06; Status DC Iodixanol (Visipaque 320) 217 ml 1X ONCE IART Last administered on 05/01/19at 10:09; Start 05/01/19 at 10:00; Stop 05/01/19 at 10:06; Status DC Bivalirudin (Angiomax) 250 mg 1X ONCE IV Last administered on 05/01/19at 10:09; Start 05/01/19 at 10:00; Stop 05/01/19 at 10:06; Status DC Ticagrelor (Brilinta) 180 mg 1X ONCE PO Last administered on 05/01/19at 10:09; Start 05/01/19 at 10:00; Stop 05/01/19 at 10:06; Status DC Lidocaine HCl (Lidocaine 1% 20ml Vial) 20 ml 1X ONCE INJ Last administered on 05/01/19at 10:09; Start 05/01/19 at 10:00; Stop 05/01/19 at 10:06; Status DC Sodium Chloride (Normal Saline Flush) 3 ml QSHIFT PRN IV AFTER MEDS AND BLOOD DRAWS; Start 05/01/19 at 10:30 Sodium Chloride 1,000 ml @ 75 mls/hr [id number] IV Last administered on 05/02/19at 00:56; Start 05/01/19 at 10:22 Aspirin (Ecotrin) 81 mg DAILYWBKFT PO ; Start 05/01/19 at 12:00; Stop 05/01/19 at 13:06; Status DC Ticagrelor (Brilinta) 90 mg BID PO Last administered on 05/02/19at 08:50; Start 05/02/19 at 09:00 Acetaminophen (Tylenol) 650 mg PRN Q6HRS PRN PO MILD PAIN / TEMP; Start 05/01/19 at 10:30 Fentanyl Citrate (Fentanyl 2ml Vial) 50 mcg PRN Q1HR PRN IV MODERATE OR SEVERE PAIN Last administered on 05/01/19at 16:03; Start 05/01/19 at 10:30 Nitroglycerin (Nitrostat) 0.4 mg PRN Q5MIN PRN SL CHEST PAIN; Start 05/01/19 at 10:30 Amiodarone HCl 150 mg/Dextrose 103 ml @ 600 mls/hr 1X PRN PRN IV FOR VENTRICULAR TACHYCARDIA; Start 05/01/19 at 10:30 Lidocaine HCl (Lidocaine HCl 2% Abboject) 100 mg 1X PRN PRN IV FOR VENTRICULAR TACHYCARDIA; Start 05/01/19 at 10:30 Atropine Sulfate (ATROPINE 0.5mg SYRINGE) 0.5 mg PRN 1X PRN IV BRADYCARDIA; Start 05/01/19 at 10:30 Nitroglycerin/ Dextrose 250 ml @ 1.5 mls/hr CONT PRN IV SEE I/O RECORD Last administered on 05/01/19at 14:09; Start 05/01/19 at 13:15 Morphine Sulfate (Morphine Sulfate) 1 mg 1X ONCE IV Last administered on 04/16 03/04at 13:56; Start 05/01/19 at 13:30; Stop 05/01/19 at 13:31; Status DC Methylprednisolone Sodium Succinate (SOLU-Medrol 40MG VIAL) 40 mg BID IV ; Start 05/02/19 at 09:00 Potassium Chloride (Klor-Con) 20 meq 1X ONCE PO ; Start 05/02/19 at 09:30; Stop 05/02/19 at 09:32; Status DC Ondansetron HCl (Zofran) 4 mg PRN Q6HRS PRN IV NAUSEA/VOMITING; Start 05/02/19 at 09:30 Active Scripts Active Reported Butrans (Buprenorphine) 1 Each Patch.tdwk 1 Patch TP WEEKLY Carvedilol 25 Mg Tablet 25 Mg PO BIDWMEALS Levothyroxine Sodium 75 Mcg Tablet 75 Mcg PO DAILYAC Calcium Citrate 250 Mg Tablet 250 Mg PO DAILY Multivitamins (Multivitamin) 1 Each Tablet 1 Tab PO DAILY Omeprazole 20 Mg Capsule. 20 Mg PO BID Tizanidine Hcl 4 Mg Tablet 4 Mg PO TID PRN Gabapentin (Gabapentin) 300 Mg Capsule 600 Mg PO TID Pravastatin Sodium 10 Mg Tablet 1 Tab PO DAILY Aspir 81 (Aspirin) 81 Mg Tablet. 1 Tab PO DAILY Morphine Sulfate 15 Mg Tablet 1 Tab PO BID Vitals/I & O Vital Sign - Last 24 Hours 05/01/19 05/01/19 05/01/19 05/01/19 10:09 10:10 10:23 10:30 Pulse 50 Resp 18 18 B/P (MAP) 159/73 (101) Pulse Ox 92 93 97 O2 Delivery Room Air Room Air Room Air Room Air 05/01/19 05/01/19 05/01/19 05/01/19 10:30 10:38 10:53 11:08 Temp 96.3 96.3 Pulse 57 48 48 44 Resp 20 B/P (MAP) 159/73 (101) 159/80 (106) 157/79 (105) 147/75 (99) Pulse Ox 96 97 95 96 O2 Delivery Room Air Room Air Room Air Room Air 8/05/01/19 05/01/19 05/01/19 11:23 11:53 12:09 12:23 Pulse 46 54 58 B/P (MAP) 150/80 (103) 165/81 (109) 164/77 (106) Pulse Ox 95 97 96 O2 Delivery Room Air Room Air Room Air Room Air 05/01/19 05/01/19 05/01/19 05/01/19 12:23 12:53 13:23 13:56 Pulse 58 54 58 B/P (MAP) 170/81 (110) 191/86 (121) 164/77 (106) Pulse Ox 96 97 96 O2 Delivery Room Air Room Air Room Air Nasal Cannula O2 Flow Rate 2.0 05/01/19 05/01/19 05/01/19 05/01/19 14:23 14:38 15:00 15:23 Temp 97.4 97.4 Pulse 68 74 72 Resp 20 B/P (MAP) 170/83 (112) 167/78 (107) 143/87 (105) Pulse Ox 97 95 96 96 O2 Delivery Room Air Nasal Cannula Room Air Room Air O2 Flow Rate 2.0 05/01/19 05/01/19 05/01/19 05/01/19 16:03 16:23 18:01 18:23 Pulse 74 60 68 B/P (MAP) 143/77 (99) 130/66 (87) 135/70 (91) Pulse Ox 97 99 98 O2 Delivery Nasal Cannula Room Air Room Air Room Air O2 Flow Rate 2.0 05/01/19 05/01/19 05/01/19 05/01/19 19:23 20:00 20:23 20:25 Pulse 66 55 Resp 18 B/P (MAP) 131/73 (92) 148/78 (101) Pulse Ox 98 98 O2 Delivery Room Air Nasal Cannula Room Air O2 Flow Rate 2.0 05/01/19 05/01/19 05/01/19 05/01/19 21:10 21:23 23:05 23:23 Temp 97.4 97.4 Pulse 54 67 61 Resp 18 18 B/P (MAP) 163/83 (109) 138/76 (96) 167/87 (113) Pulse Ox 98 98 O2 Delivery Room Air Nasal Cannula O2 Flow Rate 2.0 2.0 05/02/19 05/02/19 05/02/19 05/02/19 00:23 01:23 02:23 03:18 Pulse 53 51 51 Resp 18 B/P (MAP) 121/59 (79) 115/59 (77) 123/56 (78) Pulse Ox 98 O2 Delivery Nasal Cannula O2 Flow Rate 2.0 05/02/19 05/02/19 05/02/19 05/02/19 03:23 04:23 04:43 05:23 Temp 97.7 97.7 Pulse 51 54 58 64 B/P (MAP) 118/62 (80) 137/73 (94) 121/76 (91) Pulse Ox 94 O2 Delivery Room Air 05/02/19 05/02/19 05/02/19 05/02/19 06:23 07:00 08:50 08:58 Temp 97.4 97.4 Pulse 53 51 44 Resp 16 B/P (MAP) 172/83 (112) 132/69 (90) Pulse Ox 95 94 O2 Delivery Room Air Nasal Cannula Intake and Output 05/01/19 05/01/19 05/02/19 15:00 23:00 07:00 Intake Total 50 ml 1360 ml Output Total 210 ml 150 ml 700 ml Balance -210 ml -100 ml 660 ml BLANCA WRIGHT MD May 02, 2019 10:01
--- NOTE | 2019-05-02 11:04 | PDOC ---
Renal-Progress Notes Subjective Notes Notes FEELS WELL History of Present Illness Hx of present illness STABLE Vitals Vitals Vital Signs Date Time Temp Pulse Resp B/P (MAP) Pulse Ox O2 Delivery O2 Flow Rate FiO2 05/02/19 08:58 44 05/02/19 08:50 94 Nasal Cannula 05/02/19 07:00 97.4 16 132/69 (90) 97.4 05/02/19 03:18 2.0 Weight Weight [ ] I.O. Intake and Output Intake and Output 05/02/19 06:59 Intake Total 1410 ml Output Total 1060 ml Balance 350 ml Intake Oral 360 ml IV Total 1050 ml Output Urine Total 1060 ml Labs Labs Laboratory Tests Test 05/01/19 14:45 05/02/19 05:00 Urine Collection Type Unknown Urine Color Yellow Urine Clarity Clear Urine pH 5.5 Urine Specific [place] >=1.030 Urine Protein Negative mg/dL (NEG-TRACE) Urine Glucose (UA) Negative mg/dL (NEG) Urine Ketones (Stick) Negative mg/dL (NEG) Urine Blood Negative (NEG) Urine Nitrite Negative (NEG) Urine Bilirubin Negative (NEG) Urine Urobilinogen Dipstick 1.0 mg/dL (0.2 mg/dL) Urine Leukocyte Esterase Negative (NEG) Urine RBC Occ /HPF (0-2) Urine WBC 0 /HPF (0-4) Urine Squamous Epithelial Cells Few /LPF Urine Bacteria 0 /HPF (0-FEW) White Blood Count 10.1 x10^3/uL (4.0-11.0) Red Blood Count 3.35 x10^6/uL (4.30-5.70) Hemoglobin 10.2 g/dL (13.0-17.5) Hematocrit 29.9 % (39.0-53.0) Mean Corpuscular Volume 89 fL (79-100) Mean Corpuscular Hemoglobin 31 pg (25-35) Mean Corpuscular Hemoglobin Concent 34 g/dL (31-37) Red Cell Distribution Width 14.7 % (11.5-14.5) Platelet Count 109 x10^3/uL (140-400) Neutrophils (%) (Auto) 92 % (31-73) Lymphocytes (%) (Auto) 5 % (24-48) Monocytes (%) (Auto) 3 % (0-9) Eosinophils (%) (Auto) 0 % (0-3) Basophils (%) (Auto) 0 % (0-3) Neutrophils # (Auto) 9.2 x10^3/uL (1.8-7.7) Lymphocytes # (Auto) 0.5 x10^3/uL (1.0-4.8) Monocytes # (Auto) 0.3 x10^3/uL (0.0-1.1) Eosinophils # (Auto) 0.0 x10^3/uL (0.0-0.7) Basophils # (Auto) 0.0 x10^3/uL (0.0-0.2) Sodium Level 146 mmol/L (136-145) Potassium Level 3.4 mmol/L (3.5-5.1) Chloride Level 110 mmol/L (98-107) Carbon Dioxide Level 25 mmol/L (21-32) Anion Gap 11 (6-14) Blood Urea Nitrogen 39 mg/dL (8-26) Creatinine 1.6 mg/dL (0.7-1.3) Estimated GFR (Cockcroft-Gault) 43.2 Glucose Level 147 mg/dL (70-99) Calcium Level 7.4 mg/dL (8.5-10.1) Micro Micro Microbiology 04/29/19 - Final, Complete 04/29/19 - Final, Complete 04/29/19 - Final, Complete 04/29/19 - Final, Complete 04/29/19 - Final, Complete 04/29/19 - Final, Complete 04/29/19 Gram Stain Evaluation - Final, Complete 04/29/19 Sputum Culture - Final, Complete 04/29/19 Blood Culture - Preliminary, Resulted NO GROWTH AFTER 2 DAYS Review of Systems Constitutional: yes: alert, oriented Ears/Nose/Throat: Yes: other Eyes: Yes: no symptom reported Pulmonary: Yes dyspnea Cardiovascular: Yes chest pain Gastrointestional: Yes: no symptom reported Genitourinary: Yes: no symptom reported Musculoskeletal: Yes: no symptom reported Psychiatric/Neurological: Yes: no symptom reported Endocrine: Yes: no symptom reported Physical Exam General Appearance: no apparent distress Skin: warm Respiratory: bilateral CTA Heart: S1S2 Abdomen: soft, bowel sounds present Genitourinary: bladder flat Neurology: alert, oriented, follow commands Musculoskeletal: low back pain Assessment Assessment IMP NSTEMI LEUCOCYTOSIS DYSPNEA-RESOLVED ? PNEUMONIA RECENT KAJAL-RESOLVED CKD STAGE 3 CR AT BASELINE NEAR 1.5 HX OF PARTIAL LEFT NEPHRECTOMY/TUMOR RESECTION YEARS AGO HX OF NEPHROLITHIASIS HX OF BLADDER TUMOR RESECTION HTN HX S/P PTCA AND STENT PLAN HYDRATION CARDIOLOGY EVAL NO EVIDENCE OF KAJAL OK FOR D/C FROM RENAL STANDPOINT JARRELL OWENS MD May 02, 2019 11:04
[2019-05-02] MEDS: DOCUSATE SODIUM 100 MG CAPSULE. PO PRN (11:50)
[2019-05-02] MEDS: methylPREDNISolone SOD SUCC PF 40 MG/ML VIAL. IV SCH ×2 (11:54→21:06)
--- NOTE | 2019-05-02 11:59 | PDOC ---
Infectious Disease Note Subjective Subjective feeling really good ROS ROS no n/v/d/sob/fever Vital Sign Vital Signs Vital Signs Date Time Temp Pulse Resp B/P (MAP) Pulse Ox O2 Delivery O2 Flow Rate FiO2 05/02/19 08:58 44 05/02/19 08:50 94 Nasal Cannula 05/02/19 07:00 97.4 16 132/69 (90) 97.4 05/02/19 03:18 2.0 Physical Exam PHYSICAL EXAM GENERAL: Alert and oriented gentleman, not in distress. VITAL SIGNS: Stable HEENT: NAD. NECK: Supple, no JVP, no lymphadenopathy. LUNGS: Clear. HEART: S1, S2 regular. ABDOMEN: Benign. EXTREMITIES: No edema, cyanosis. SKIN: Unremarkable. NEUROLOGIC: Alert, awake and appropriate. No focal neurologic deficit. Labs Lab Laboratory Tests Test 05/01/19 14:45 05/02/19 05:00 Urine Collection Type Unknown Urine Color Yellow Urine Clarity Clear Urine pH 5.5 Urine Specific [place] >=1.030 Urine Protein Negative mg/dL (NEG-TRACE) Urine Glucose (UA) Negative mg/dL (NEG) Urine Ketones (Stick) Negative mg/dL (NEG) Urine Blood Negative (NEG) Urine Nitrite Negative (NEG) Urine Bilirubin Negative (NEG) Urine Urobilinogen Dipstick 1.0 mg/dL (0.2 mg/dL) Urine Leukocyte Esterase Negative (NEG) Urine RBC Occ /HPF (0-2) Urine WBC 0 /HPF (0-4) Urine Squamous Epithelial Cells Few /LPF Urine Bacteria 0 /HPF (0-FEW) White Blood Count 10.1 x10^3/uL (4.0-11.0) Red Blood Count 3.35 x10^6/uL (4.30-5.70) Hemoglobin 10.2 g/dL (13.0-17.5) Hematocrit 29.9 % (39.0-53.0) Mean Corpuscular Volume 89 fL (79-100) Mean Corpuscular Hemoglobin 31 pg (25-35) Mean Corpuscular Hemoglobin Concent 34 g/dL (31-37) Red Cell Distribution Width 14.7 % (11.5-14.5) Platelet Count 109 x10^3/uL (140-400) Neutrophils (%) (Auto) 92 % (31-73) Lymphocytes (%) (Auto) 5 % (24-48) Monocytes (%) (Auto) 3 % (0-9) Eosinophils (%) (Auto) 0 % (0-3) Basophils (%) (Auto) 0 % (0-3) Neutrophils # (Auto) 9.2 x10^3/uL (1.8-7.7) Lymphocytes # (Auto) 0.5 x10^3/uL (1.0-4.8) Monocytes # (Auto) 0.3 x10^3/uL (0.0-1.1) Eosinophils # (Auto) 0.0 x10^3/uL (0.0-0.7) Basophils # (Auto) 0.0 x10^3/uL (0.0-0.2) Sodium Level 146 mmol/L (136-145) Potassium Level 3.4 mmol/L (3.5-5.1) Chloride Level 110 mmol/L (98-107) Carbon Dioxide Level 25 mmol/L (21-32) Anion Gap 11 (6-14) Blood Urea Nitrogen 39 mg/dL (8-26) Creatinine 1.6 mg/dL (0.7-1.3) Estimated GFR (Cockcroft-Gault) 43.2 Glucose Level 147 mg/dL (70-99) Calcium Level 7.4 mg/dL (8.5-10.1) Micro culture neg Objective Assessment Pneumonia/CHF KAJAL Troponin leak Leukocytosis Recent hospitalization AMI s/p angio and stenting Plan Plan of Care bc sputum culture zosyn,, change to po augmentin supportive care MOHIT CALLAHAN MD May 02, 2019 11:59
--- NOTE | 2019-05-02 12:45 | PDOC ---
PROGRESS NOTES Subjective Subjective Patient seen and examined The patient is feeling better today. Objective Objective Vital Signs Date Time Temp Pulse Resp B/P (MAP) Pulse Ox O2 Delivery O2 Flow Rate FiO2 05/02/19 08:58 44 05/02/19 08:50 94 Nasal Cannula 05/02/19 07:00 97.4 16 132/69 (90) 97.4 05/02/19 03:18 2.0 Intake and Output 05/02/19 07:00 Intake Total 1410 ml Output Total 1060 ml Balance 350 ml Intake Oral 360 ml IV Total 1050 ml Output Urine Total 1060 ml Physical Exam Abdomen: Normal bowel sounds Heart: Regular rate General: mild distress Lungs: Other (mildly decreased breath sounds) Assessment Assessment Problems Medical Problems: (1) CAD (coronary artery disease) Status: Chronic (2) CKD (chronic kidney disease) Status: Chronic (3) Hemoptysis Status: Acute (4) HLD (hyperlipidemia) Status: Chronic (5) HTN (hypertension) Status: Chronic (6) Hypothyroid Status: Chronic (7) NSTEMI (non-ST elevated myocardial infarction) Status: Acute (8) Peripheral neuropathy Status: Chronic Assessment 1. NSTEMI: Peaked at 9.5, Bare metal stents placed to the LAD and LCX yesterday. Stable and continuing medications. 2. Pneumonia: no further hemoptysis. No SOA 3. Septic shock: Resolved. 4. CAD: 2 stents with last placed in 2012. Caaath as above. Follows with [facility] cardiology. 5. HTN 6. HLP 7. Hx of bladder CA and left renal tumor resection 8. CKD: possibly stage 3. nephrology following 9. Remote hx of tobaccoism Comment Review of Relevant I have reviewed the following items josseline (where applicable) has been applied. Labs Laboratory Tests Test 04/30/19 13:10 04/30/19 20:15 05/01/19 03:00 05/01/19 14:45 Heparin Anti-Xa Act, Unfractionated 0.31 IU/mL (0.30-0.70) 0.25 IU/mL (0.30-0.70) 0.30 IU/mL (0.30-0.70) White Blood Count 10.7 x10^3/uL (4.0-11.0) Red Blood Count 3.29 x10^6/uL (4.30-5.70) Hemoglobin 10.0 g/dL (13.0-17.5) Hematocrit 29.4 % (39.0-53.0) Mean Corpuscular Volume 89 fL (79-100) Mean Corpuscular Hemoglobin 30 pg (25-35) Mean Corpuscular Hemoglobin Concent 34 g/dL (31-37) Red Cell Distribution Width 14.5 % (11.5-14.5) Platelet Count 102 x10^3/uL (140-400) Neutrophils (%) (Auto) 92 % (31-73) Lymphocytes (%) (Auto) 6 % (24-48) Monocytes (%) (Auto) 3 % (0-9) Eosinophils (%) (Auto) 0 % (0-3) Basophils (%) (Auto) 0 % (0-3) Neutrophils # (Auto) 9.9 x10^3/uL (1.8-7.7) Lymphocytes # (Auto) 0.6 x10^3/uL (1.0-4.8) Monocytes # (Auto) 0.3 x10^3/uL (0.0-1.1) Eosinophils # (Auto) 0.0 x10^3/uL (0.0-0.7) Basophils # (Auto) 0.0 x10^3/uL (0.0-0.2) Erythrocyte Sedimentation Rate 95 (0-15) Sodium Level 143 mmol/L (136-145) Potassium Level 3.5 mmol/L (3.5-5.1) Chloride Level 108 mmol/L (98-107) Carbon Dioxide Level 25 mmol/L (21-32) Anion Gap 10 (6-14) Blood Urea Nitrogen 38 mg/dL (8-26) Creatinine 1.5 mg/dL (0.7-1.3) Estimated GFR (Cockcroft-Gault) 46.5 Glucose Level 169 mg/dL (70-99) Calcium Level 7.3 mg/dL (8.5-10.1) Urine Collection Type Unknown Urine Color Yellow Urine Clarity Clear Urine pH 5.5 Urine Specific [place] >=1.030 Urine Protein Negative mg/dL (NEG-TRACE) Urine Glucose (UA) Negative mg/dL (NEG) Urine Ketones (Stick) Negative mg/dL (NEG) Urine Blood Negative (NEG) Urine Nitrite Negative (NEG) Urine Bilirubin Negative (NEG) Urine Urobilinogen Dipstick 1.0 mg/dL (0.2 mg/dL) Urine Leukocyte Esterase Negative (NEG) Urine RBC Occ /HPF (0-2) Urine WBC 0 /HPF (0-4) Urine Squamous Epithelial Cells Few /LPF Urine Bacteria 0 /HPF (0-FEW) Test 05/02/19 05:00 White Blood Count 10.1 x10^3/uL (4.0-11.0) Red Blood Count 3.35 x10^6/uL (4.30-5.70) Hemoglobin 10.2 g/dL (13.0-17.5) Hematocrit 29.9 % (39.0-53.0) Mean Corpuscular Volume 89 fL (79-100) Mean Corpuscular Hemoglobin 31 pg (25-35) Mean Corpuscular Hemoglobin Concent 34 g/dL (31-37) Red Cell Distribution Width 14.7 % (11.5-14.5) Platelet Count 109 x10^3/uL (140-400) Neutrophils (%) (Auto) 92 % (31-73) Lymphocytes (%) (Auto) 5 % (24-48) Monocytes (%) (Auto) 3 % (0-9) Eosinophils (%) (Auto) 0 % (0-3) Basophils (%) (Auto) 0 % (0-3) Neutrophils # (Auto) 9.2 x10^3/uL (1.8-7.7) Lymphocytes # (Auto) 0.5 x10^3/uL (1.0-4.8) Monocytes # (Auto) 0.3 x10^3/uL (0.0-1.1) Eosinophils # (Auto) 0.0 x10^3/uL (0.0-0.7) Basophils # (Auto) 0.0 x10^3/uL (0.0-0.2) Sodium Level 146 mmol/L (136-145) Potassium Level 3.4 mmol/L (3.5-5.1) Chloride Level 110 mmol/L (98-107) Carbon Dioxide Level 25 mmol/L (21-32) Anion Gap 11 (6-14) Blood Urea Nitrogen 39 mg/dL (8-26) Creatinine 1.6 mg/dL (0.7-1.3) Estimated GFR (Cockcroft-Gault) 43.2 Glucose Level 147 mg/dL (70-99) Calcium Level 7.4 mg/dL (8.5-10.1) Laboratory Tests Test 05/01/19 14:45 05/02/19 05:00 Urine Collection Type Unknown Urine Color Yellow Urine Clarity Clear Urine pH 5.5 Urine Specific [place] >=1.030 Urine Protein Negative mg/dL (NEG-TRACE) Urine Glucose (UA) Negative mg/dL (NEG) Urine Ketones (Stick) Negative mg/dL (NEG) Urine Blood Negative (NEG) Urine Nitrite Negative (NEG) Urine Bilirubin Negative (NEG) Urine Urobilinogen Dipstick 1.0 mg/dL (0.2 mg/dL) Urine Leukocyte Esterase Negative (NEG) Urine RBC Occ /HPF (0-2) Urine WBC 0 /HPF (0-4) Urine Squamous Epithelial Cells Few /LPF Urine Bacteria 0 /HPF (0-FEW) White Blood Count 10.1 x10^3/uL (4.0-11.0) Red Blood Count 3.35 x10^6/uL (4.30-5.70) Hemoglobin 10.2 g/dL (13.0-17.5) Hematocrit 29.9 % (39.0-53.0) Mean Corpuscular Volume 89 fL (79-100) Mean Corpuscular Hemoglobin 31 pg (25-35) Mean Corpuscular Hemoglobin Concent 34 g/dL (31-37) Red Cell Distribution Width 14.7 % (11.5-14.5) Platelet Count 109 x10^3/uL (140-400) Neutrophils (%) (Auto) 92 % (31-73) Lymphocytes (%) (Auto) 5 % (24-48) Monocytes (%) (Auto) 3 % (0-9) Eosinophils (%) (Auto) 0 % (0-3) Basophils (%) (Auto) 0 % (0-3) Neutrophils # (Auto) 9.2 x10^3/uL (1.8-7.7) Lymphocytes # (Auto) 0.5 x10^3/uL (1.0-4.8) Monocytes # (Auto) 0.3 x10^3/uL (0.0-1.1) Eosinophils # (Auto) 0.0 x10^3/uL (0.0-0.7) Basophils # (Auto) 0.0 x10^3/uL (0.0-0.2) Sodium Level 146 mmol/L (136-145) Potassium Level 3.4 mmol/L (3.5-5.1) Chloride Level 110 mmol/L (98-107) Carbon Dioxide Level 25 mmol/L (21-32) Anion Gap 11 (6-14) Blood Urea Nitrogen 39 mg/dL (8-26) Creatinine 1.6 mg/dL (0.7-1.3) Estimated GFR (Cockcroft-Gault) 43.2 Glucose Level 147 mg/dL (70-99) Calcium Level 7.4 mg/dL (8.5-10.1) Microbiology 04/29/19 - Final, Complete 04/29/19 - Final, Complete 04/29/19 - Final, Complete 04/29/19 - Final, Complete 04/29/19 - Final, Complete 04/29/19 - Final, Complete 04/29/19 Gram Stain Evaluation - Final, Complete 04/29/19 Sputum Culture - Final, Complete 04/29/19 Blood Culture - Preliminary, Resulted NO GROWTH AFTER 3 DAYS Medications Current Medications Sodium Chloride 1,000 ml @ 100 mls/hr 1X ONCE IV Last administered on 04/28/19at 17:41; Start 04/28/19 at 17:15; Stop 04/29/19 at 03:14; Status DC Heparin Sodium/ Dextrose 500 ml @ 0 mls/hr CONT PRN IV cvc protocol Last administered on 05/01/19at 03:08; Start 04/28/19 at 17:15 Heparin Sodium (Porcine) (Heparin Sodium) 2,350 unit PRN Q6HRS PRN IV FOR UFH LEVEL LESS THAN 0.2 Last administered on 04/30/19at 08:16; Start 04/28/19 at 17:15 Info (Anti-Coagulation Monitoring By Pharmacy) 1 each PRN DAILY PRN MC SEE COMMENTS Last administered on 04/29/19at 09:36; Start 04/28/19 at 17:30 Magnesium Sulfate/ Dextrose 100 ml @ 25 mls/hr 1X ONCE IV Last administered on 04/28/19at 17:41; Start 04/28/19 at 18:00; Stop 04/28/19 at 21:59; Status DC Aspirin (Ecotrin) 81 mg DAILY PO Last administered on 05/02/19 08:50; Start 04/29/19 at 09:00 Gabapentin (Neurontin) 600 mg TID PO Last administered on 05/02/19 08:50; Start 04/28/19 at 21:00 Tizanidine HCl (Zanaflex) 4 mg PRN TID PRN PO MUSCLE SPASMS Last administered on 05/01/19 22:09; Start 04/28/19 at 18:00 Calcium Carbonate/ Glycine (Oscal) 500 mg DAILY PO Last administered on 05/01/19 12:41; Start 04/29/19 at 09:00 Multivitamins (Thera M Plus) 1 tab DAILY PO Last administered on 05/01/19 12:41; Start 04/29/19 at 09:00 Pantoprazole Sodium (Protonix) 40 mg DAILYAC PO Last administered on 05/02/19 08:50; Start 04/29/19 at 07:30 Atorvastatin Calcium (Lipitor) 5 mg QHS PO Last administered on 05/01/19 21:10; Start 04/28/19 at 21:00 Morphine Sulfate (Ms Contin) 15 mg BID PO Last administered on 05/02/19 08:50; Start 04/28/19 at 21:00 Levothyroxine Sodium (Synthroid) 75 mcg DAILYAC PO Last administered on 05/02/19 08:50; Start 04/29/19 at 07:30 Non-Formulary Medication (Buprenorphine (Butrans)) 1 patch WEEKLY TP ; Start 05/05/19 at 09:00; Status UNV Carvedilol (Coreg) 25 mg BIDWMEALS PO Last administered on 04/28/19 21:01; Start 04/28/19 at 18:30 Sodium Chloride (Normal Saline Flush) 3 ml QSHIFT PRN IV AFTER MEDS AND BLOOD DRAWS; Start 04/28/19 at 18:15 Sodium Chloride 1,000 ml @ 100 mls/hr Q10H IV ; Start 04/28/19 at 18:05; Stop 04/29/19 at 01:59; Status DC Ondansetron HCl (Zofran) 4 mg PRN Q4HRS PRN IV NAUSEA/VOMITING; Start 04/28/19 at 18:15; Stop 05/02/19 at 09:31; Status DC Acetaminophen (Tylenol) 650 mg PRN Q4HRS PRN PO TEMP OVER 100.4F OR MILD PAIN; Start 04/28/19 at 18:15; Stop 05/02/19 at 07:19; Status DC Al Hydroxide/Mg Hydroxide (Mylanta Plus Xs) 30 ml PRN DAILY PRN PO HEARTBURN / GAS; Start 04/28/19 at 18:15 Clonidine HCl (Catapres) 0.1 mg PRN Q6HRS PRN PO SBP>160 OR DBP>90; Start 04/28/19 at 18:15 Sodium Monofluorophosphate (Fleet Adult) 133 ml PRN DAILY PRN VT CONSTIPATION; Start 04/28/19 at 18:15 Docusate Sodium (Colace) 100 mg PRN BID PRN PO CONSTIPATION Last administered on 05/02/19at 11:54; Start 04/28/19 at 18:15 Albuterol Sulfate (Ventolin Neb Soln) 2.5 mg PRN Q4HRS PRN NEB SHORTNESS OF BREATH Last administered on 05/01/19at 14:40; Start 04/28/19 at 18:15 Guaifenesin (Robitussin) 200 mg PRN Q4HRS PRN PO COUGH; Start 04/28/19 at 18:15 Lorazepam (Ativan) 0.5 mg PRN Q4HRS PRN PO ANXIETY / AGITATION Last administered on 05/01/19at 12:41; Start 04/28/19 at 18:15 Dopamine HCl/ Dextrose 250 ml @ 10.643 mls/ hr 1X ONCE IV Last administered on 04/29/19at 02:22; Start 04/29/19 at 02:00; Stop 04/29/19 at 09:52; Status DC Sodium Chloride 1,000 ml @ 75 mls/hr [id number] IV Last administered on 05/01/19at 21:10; Start 04/29/19 at 02:00 Methylprednisolone Sodium Succinate (SOLU-Medrol 125MG VIAL) 125 mg 1X ONCE IV Last administered on 04/29/19at 07:20; Start 04/29/19 at 06:30; Stop 04/29/19 at 06:31; Status DC Methylprednisolone Sodium Succinate (SOLU-Medrol 125MG VIAL) 125 mg BID IV Last administered on 05/01/19at 21:10; Start 04/29/19 at 21:00; Stop 05/02/19 at 07:25; Status DC Piperacillin Sod/ Tazobactam Sod 3.375 gm/Sodium Chloride 50 ml @ 100 mls/hr Q8HRS IV Last administered on 05/02/19at 05:05; Start 04/29/19 at 14:00; Stop 05/02/19 at 12:07; Status DC Acetaminophen (Tylenol) 500 mg PRN Q6HRS PRN PO MILD PAIN / TEMP; Start 04/29/19 at 09:00 Acetaminophen/ Codeine Phosphate (Tylenol #3) 1 tab PRN Q6HRS PRN PO MODERATE PAIN; Start 04/29/19 at 09:00 Dopamine HCl/ Dextrose 250 ml @ 6.959 mls/ hr CONT PRN IV SEE I/O RECORD Last administered on 04/30/19at 10:10; Start 04/29/19 at 10:00 Fentanyl Citrate (Fentanyl 2ml Vial) 100 mcg STK-MED ONCE .ROUTE ; Start 05/01/19 at 08:37; Stop 05/01/19 at 08:37; Status DC Midazolam HCl (Versed) 2 mg STK-MED ONCE .ROUTE ; Start 05/01/19 at 08:37; Stop 05/01/19 at 08:38; Status DC Bivalirudin (Angiomax) 250 mg STK-MED ONCE IV ; Start 05/01/19 at 09:21; Stop 05/01/19 at 09:21; Status DC Midazolam HCl (Versed) 2 mg STK-MED ONCE .ROUTE ; Start 05/01/19 at 09:25; Stop 05/01/19 at 09:25; Status DC Iodixanol (Visipaque 320) 100 ml STK-MED ONCE .ROUTE ; Start 05/01/19 at 09:37; Stop 05/01/19 at 09:37; Status DC Ticagrelor (Brilinta) 90 mg STK-MED ONCE .ROUTE ; Start 05/01/19 at 09:51; Stop 05/01/19 at 09:51; Status DC Heparin Sodium/ Sodium Chloride (HEPARIN for ARTERIAL LINE FLUSH) 1,000 unit 1X ONCE IART Last administered on 05/01/19at 10:09; Start 05/01/19 at 10:00; Stop 05/01/19 at 10:06; Status DC Midazolam HCl (Versed) 3 mg 1X ONCE IV Last administered on 05/01/19at 10:09; Start 05/01/19 at 10:00; Stop 05/01/19 at 10:06; Status DC Fentanyl Citrate (Fentanyl 2ml Vial) 37.5 mcg 1X ONCE IV Last administered on 05/01/19at 10:09; Start 05/01/19 at 10:00; Stop 05/01/19 at 10:06; Status DC Iodixanol (Visipaque 320) 217 ml 1X ONCE IART Last administered on 05/01/19 10:09; Start 05/01/19 at 10:00; Stop 05/01/19 at 10:06; Status DC Bivalirudin (Angiomax) 250 mg 1X ONCE IV Last administered on 05/01/19at 10:09; Start 05/01/19 at 10:00; Stop 05/01/19 at 10:06; Status DC Ticagrelor (Brilinta) 180 mg 1X ONCE PO Last administered on 05/01/19at 10:09; Start 05/01/19 at 10:00; Stop 05/01/19 at 10:06; Status DC Lidocaine HCl (Lidocaine 1% 20ml Vial) 20 ml 1X ONCE INJ Last administered on 05/01/19at 10:09; Start 05/01/19 at 10:00; Stop 05/01/19 at 10:06; Status DC Sodium Chloride (Normal Saline Flush) 3 ml QSHIFT PRN IV AFTER MEDS AND BLOOD DRAWS; Start 05/01/19 at 10:30 Sodium Chloride 1,000 ml @ 75 mls/hr [id number] IV Last administered on 05/02/19at 00:56; Start 05/01/19 at 10:22 Aspirin (Ecotrin) 81 mg DAILYWBKFT PO ; Start 05/01/19 at 12:00; Stop 05/01/19 at 13:06; Status DC Ticagrelor (Brilinta) 90 mg BID PO Last administered on 05/02/19at 08:50; Start 05/02/19 at 09:00 Acetaminophen (Tylenol) 650 mg PRN Q6HRS PRN PO MILD PAIN / TEMP; Start 04/16 03/04 at 10:30 Fentanyl Citrate (Fentanyl 2ml Vial) 50 mcg PRN Q1HR PRN IV MODERATE OR SEVERE PAIN Last administered on 05/01/19at 16:03; Start 05/01/19 at 10:30 Nitroglycerin (Nitrostat) 0.4 mg PRN Q5MIN PRN SL CHEST PAIN; Start 05/01/19 at 10:30 Amiodarone HCl 150 mg/Dextrose 103 ml @ 600 mls/hr 1X PRN PRN IV FOR VENTRICULAR TACHYCARDIA; Start 05/01/19 at 10:30 Lidocaine HCl (Lidocaine HCl 2% Abboject) 100 mg 1X PRN PRN IV FOR VENTRICULAR TACHYCARDIA; Start 05/01/19 at 10:30 Atropine Sulfate (ATROPINE 0.5mg SYRINGE) 0.5 mg PRN 1X PRN IV BRADYCARDIA; Start 05/01/19 at 10:30 Nitroglycerin/ Dextrose 250 ml @ 1.5 mls/hr CONT PRN IV SEE I/O RECORD Last administered on 05/01/19at 14:09; Start 05/01/19 at 13:15 Morphine Sulfate (Morphine Sulfate) 1 mg 1X ONCE IV Last administered on 05/01/19at 13:56; Start 05/01/19 at 13:30; Stop 05/01/19 at 13:31; Status DC Methylprednisolone Sodium Succinate (SOLU-Medrol 40MG VIAL) 40 mg BID IV Last administered on 05/02/19at 11:54; Start 05/02/19 at 09:00 Potassium Chloride (Klor-Con) 20 meq 1X ONCE PO Last administered on 05/02/19at 11:54; Start 05/02/19 at 09:30; Stop 05/02/19 at 09:32; Status DC Ondansetron HCl (Zofran) 4 mg PRN Q6HRS PRN IV NAUSEA/VOMITING; Start 05/02/19 at 09:30 Amoxicillin/ Clavulanate Potassium (Augmentin 875/ 125mg) 1 tab BID PO ; Start 05/02/19 at 21:00 Active Scripts Active Reported Butrans (Buprenorphine) 1 Each Patch.tdwk 1 Patch TP WEEKLY Carvedilol 25 Mg Tablet 25 Mg PO BIDWMEALS Levothyroxine Sodium 75 Mcg Tablet 75 Mcg PO DAILYAC Calcium Citrate 250 Mg Tablet 250 Mg PO DAILY Multivitamins (Multivitamin) 1 Each Tablet 1 Tab PO DAILY Omeprazole 20 Mg Capsule. 20 Mg PO BID Tizanidine Hcl 4 Mg Tablet 4 Mg PO TID PRN Gabapentin (Gabapentin) 300 Mg Capsule 600 Mg PO TID Pravastatin Sodium 10 Mg Tablet 1 Tab PO DAILY Aspir 81 (Aspirin) 81 Mg Tablet. 1 Tab PO DAILY Morphine Sulfate 15 Mg Tablet 1 Tab PO BID Vitals/I & O Vital Sign - Last 24 Hours 05/01/19 05/01/19 05/01/19 05/01/19 12:53 13:23 13:56 14:23 Pulse 54 58 68 B/P (MAP) 191/86 (121) 164/77 (106) 170/83 (112) Pulse Ox 97 96 97 O2 Delivery Room Air Room Air Nasal Cannula Room Air O2 Flow Rate 2.0 05/01/19 05/01/19 05/01/19 05/01/19 14:38 15:00 15:23 16:03 Temp 97.4 97.4 Pulse 74 72 Resp 20 B/P (MAP) 167/78 (107) 143/87 (105) Pulse Ox 95 96 96 O2 Delivery Nasal Cannula Room Air Room Air Nasal Cannula O2 Flow Rate 2.0 2.0 05/01/19 05/01/19 05/01/19 05/01/19 16:23 18:01 18:23 19:23 Pulse 74 60 68 66 B/P (MAP) 143/77 (99) 130/66 (87) 135/70 (91) 131/73 (92) Pulse Ox 97 99 98 98 O2 Delivery Room Air Room Air Room Air Room Air 05/01/19 05/01/19 05/01/19 05/01/19 20:00 20:23 20:25 21:10 Pulse 55 Resp 18 18 B/P (MAP) 148/78 (101) Pulse Ox 98 98 O2 Delivery Nasal Cannula Room Air Room Air O2 Flow Rate 2.0 2.0 05/01/19 05/01/19 05/01/19 05/02/19 21:23 23:05 23:23 00:23 Temp 97.4 97.4 Pulse 54 67 61 53 Resp 18 B/P (MAP) 163/83 (109) 138/76 (96) 167/87 (113) 121/59 (79) Pulse Ox 98 O2 Delivery Nasal Cannula O2 Flow Rate 2.0 05/02/19 05/02/19 05/02/19 05/02/19 01:23 02:23 03:18 03:23 Pulse 51 51 51 Resp 18 B/P (MAP) 115/59 (77) 123/56 (78) 118/62 (80) Pulse Ox 98 O2 Delivery Nasal Cannula O2 Flow Rate 2.0 05/02/19 05/02/19 05/02/19 05/02/19 04:23 04:43 05:23 06:23 Temp 97.7 97.7 Pulse 54 58 64 53 B/P (MAP) 137/73 (94) 121/76 (91) 172/83 (112) Pulse Ox 94 O2 Delivery Room Air 05/02/19 05/02/19 05/02/19 05/02/19 07:00 08:00 08:50 08:58 Temp 97.4 97.4 Pulse 51 44 Resp 16 B/P (MAP) 132/69 (90) Pulse Ox 95 94 O2 Delivery Room Air Room Air Nasal Cannula Intake and Output 05/01/19 05/01/19 05/02/19 15:00 23:00 07:00 Intake Total 50 ml 1360 ml Output Total 210 ml 150 ml 700 ml Balance -210 ml -100 ml 660 ml SUSAN KATHLEEN MD May 02, 2019 12:45
[2019-05-02] MEDS: BISACODYL 10 MG SUPP.RECT. PR PRN (14:57)
[2019-05-02] MEDS: tiZANidine 4 MG TABLET. PO PRN (21:05)
[2019-05-02] MEDS: AMOXICILLIN/K CLAV 875/125MG TABLET. PO SCH (21:05)
[2019-05-02] MEDS: ATORVASTATIN CALCIUM 10 MG TABLET. PO SCH (21:06)
[2019-05-03] VITALS (11 sets, daily range): BP systolic 133–194; BP diastolic 65–94
[2019-05-03] MEDS: IV NORMAL SALINE 1000ML BAG 1,000 ML IV SCH ×2 (02:22→15:42)
[2019-05-03 04:42] LABS: CALCIUM 7.9 mg/dL (8.5-10.1); CREATININE 1.5 mg/dL (0.7-1.3); GFR 46.5; POTASSIUM 3.8 mmol/L (3.5-5.1)
--- NOTE | 2019-05-03 07:33 | PDOC ---
PULMONARY PROGRESS NOTES Subjective sob better, has cough, has back pain, on ra Vitals Vital Signs Date Time Temp Pulse Resp B/P (MAP) Pulse Ox O2 Delivery O2 Flow Rate FiO2 05/03/19 03:44 60 179/94 (122) 05/03/19 03:00 97.8 20 98 Room Air 97.8 05/03/19 01:43 2.0 ROS: No Nausea, No Chest Pain, No Abdominal Pain, No Increase Cough General: Alert HEENT: Other (nc at perrl ) Lungs: Clear Cardiovascular: S1, S2 Abdomen: Soft, Non-tender Neuro Exam: Alert Extremities: No Edema Skin: Warm Labs Laboratory Tests Test 05/01/19 14:45 05/02/19 05:00 05/03/19 04:00 Urine Collection Type Unknown Urine Color Yellow Urine Clarity Clear Urine pH 5.5 Urine Specific [place] >=1.030 Urine Protein Negative mg/dL (NEG-TRACE) Urine Glucose (UA) Negative mg/dL (NEG) Urine Ketones (Stick) Negative mg/dL (NEG) Urine Blood Negative (NEG) Urine Nitrite Negative (NEG) Urine Bilirubin Negative (NEG) Urine Urobilinogen Dipstick 1.0 mg/dL (0.2 mg/dL) Urine Leukocyte Esterase Negative (NEG) Urine RBC Occ /HPF (0-2) Urine WBC 0 /HPF (0-4) Urine Squamous Epithelial Cells Few /LPF Urine Bacteria 0 /HPF (0-FEW) White Blood Count 10.1 x10^3/uL (4.0-11.0) Red Blood Count 3.35 x10^6/uL (4.30-5.70) Hemoglobin 10.2 g/dL (13.0-17.5) Hematocrit 29.9 % (39.0-53.0) Mean Corpuscular Volume 89 fL (79-100) Mean Corpuscular Hemoglobin 31 pg (25-35) Mean Corpuscular Hemoglobin Concent 34 g/dL (31-37) Red Cell Distribution Width 14.7 % (11.5-14.5) Platelet Count 109 x10^3/uL (140-400) Neutrophils (%) (Auto) 92 % (31-73) Lymphocytes (%) (Auto) 5 % (24-48) Monocytes (%) (Auto) 3 % (0-9) Eosinophils (%) (Auto) 0 % (0-3) Basophils (%) (Auto) 0 % (0-3) Neutrophils # (Auto) 9.2 x10^3/uL (1.8-7.7) Lymphocytes # (Auto) 0.5 x10^3/uL (1.0-4.8) Monocytes # (Auto) 0.3 x10^3/uL (0.0-1.1) Eosinophils # (Auto) 0.0 x10^3/uL (0.0-0.7) Basophils # (Auto) 0.0 x10^3/uL (0.0-0.2) Sodium Level 146 mmol/L (136-145) 145 mmol/L (136-145) Potassium Level 3.4 mmol/L (3.5-5.1) 3.8 mmol/L (3.5-5.1) Chloride Level 110 mmol/L (98-107) 109 mmol/L (98-107) Carbon Dioxide Level 25 mmol/L (21-32) 27 mmol/L (21-32) Anion Gap 11 (6-14) 9 (6-14) Blood Urea Nitrogen 39 mg/dL (8-26) 33 mg/dL (8-26) Creatinine 1.6 mg/dL (0.7-1.3) 1.5 mg/dL (0.7-1.3) Estimated GFR (Cockcroft-Gault) 43.2 46.5 Glucose Level 147 mg/dL (70-99) 146 mg/dL (70-99) Calcium Level 7.4 mg/dL (8.5-10.1) 7.9 mg/dL (8.5-10.1) Laboratory Tests Test 05/03/19 04:00 Sodium Level 145 mmol/L (136-145) Potassium Level 3.8 mmol/L (3.5-5.1) Chloride Level 109 mmol/L (98-107) Carbon Dioxide Level 27 mmol/L (21-32) Anion Gap 9 (6-14) Blood Urea Nitrogen 33 mg/dL (8-26) Creatinine 1.5 mg/dL (0.7-1.3) Estimated GFR (Cockcroft-Gault) 46.5 Glucose Level 146 mg/dL (70-99) Calcium Level 7.9 mg/dL (8.5-10.1) Medications Active Scripts Medications Dose Route/Sig Max Daily Dose Days Date Category Butrans (Buprenorphine) 1 Each Patch.tdwk 1 Patch TP WEEKLY 04/28/19 Reported Carvedilol 25 Mg Tablet 25 Mg PO BIDWMEALS 04/28/19 Reported Levothyroxine Sodium 75 Mcg Tablet 75 Mcg PO DAILYAC 04/28/19 Reported Calcium Citrate 250 Mg Tablet 250 Mg PO DAILY 04/28/19 Reported Multivitamins (Multivitamin) 1 Each Tablet 1 Tab PO DAILY 04/28/19 Reported Omeprazole 20 Mg Capsule.dr 20 Mg PO BID 04/28/19 Reported Tizanidine Hcl 4 Mg Tablet 4 Mg PO TID PRN 04/28/19 Reported Gabapentin (Gabapentin) 300 Mg Capsule 600 Mg PO TID 01/19/16 Reported Pravastatin Sodium 10 Mg Tablet 1 Tab PO DAILY 01/19/16 Reported Aspir 81 (Aspirin) 81 Mg Tablet.dr 1 Tab PO DAILY 01/19/16 Reported Morphine Sulfate 15 Mg Tablet 1 Tab PO BID 01/19/16 Reported Impression . IMPRESSION: 1. Acute respiratory failure, multifactorial. 2. Abnormal CT revealing ground-glass opacities, compatible with acute lung injury. POSSIBLE CARDIOGENIC PULMONARY EDEMA 3. Possible pneumonia, gram-negative and gram-positive. 4. Coronary artery disease, status post stent placement in 2012. 5. Hemoptysis, secondary to ground-glass opacities, compatible with acute lung injury. 6. History of tuberculosis, details unknown. 7. Tobacco dependent, in remission. 8. Chronic obstructive pulmonary disease. 9. History of bladder cancer and renal cell tumor resection. 10. Chronic kidney disease. 11. POSSIBLE UNILATERAL EDEMA CARDIAC IN NATURE Plan . OFF BIPAP 02 titration, on ra keep I<O FOLLOW CARD INPUT ANTIBX per id change solumedrol to prednisone 40mg daily w taper by 10 mg q 3d. REPEAT CT IN 2 MONTHS NO FURTHER HEMOPTYSIS discussed w pt GONZALO DASILVA MD May 03, 2019 07:33
[2019-05-03] MEDS: CARVEDILOL 12.5 MG TABLET. PO SCH ×2 (08:00→17:00)
[2019-05-03] MEDS: CALCIUM CARBONATE 500 MG TABLET PO SCH (09:00)
[2019-05-03] MEDS: MULTIVITAMIN with MINERAL TABLET. PO SCH (09:00)
[2019-05-03] MEDS: TICAGRELOR 90 MG TABLET. PO SCH ×2 (09:09→20:37)
[2019-05-03] MEDS: AMOXICILLIN/K CLAV 875/125MG TABLET. PO SCH ×2 (09:09→20:38)
[2019-05-03] MEDS: MORPHINE ER 15 MG TABLET.ER PO SCH ×2 (09:09→20:38)
[2019-05-03] MEDS: GABAPENTIN 300 MG CAPSULE. PO SCH ×3 (09:09→20:38)
[2019-05-03] MEDS: LEVOTHYROXINE 75 MCG TABLET PO SCH (09:10)
[2019-05-03] MEDS: ASPIRIN ENTERIC COATED 81 MG TABLET.DR. PO SCH (09:10)
[2019-05-03] MEDS: PANTOPRAZOLE 40 MG TABLET.DR. PO SCH (09:10)
[2019-05-03] MEDS: predniSONE 20 MG TABLET PO SCH (09:10)
[2019-05-03] MEDS ORDERED: AMLO5TAB10 PO (11:43)
[2019-05-03] MEDS ORDERED: ALBU2.5V8 NEB (11:43)
[2019-05-03] MEDS ORDERED: TICA90TA PO (11:43)
[2019-05-03] MEDS ORDERED: PRED20TA PO (11:43)
[2019-05-03] MEDS ORDERED: ATOR10TA60 PO (11:43)
[2019-05-03] MEDS ORDERED: NITR0.4T SL (11:43)
[2019-05-03] MEDS ORDERED: AMOX1TAB11 PO (11:43)
--- NOTE | 2019-05-03 11:51 | PDOC ---
Renal-Progress Notes Subjective Notes Notes NO MORE CHEST PAIN, WANTS TO GO HOME History of Present Illness Hx of present illness STABLE Vitals Vitals Vital Signs Date Time Temp Pulse Resp B/P (MAP) Pulse Ox O2 Delivery O2 Flow Rate FiO2 05/03/19 11:00 97.1 62 16 194/84 (120) 95 Room Air 97.1 05/03/19 01:43 2.0 Weight Weight [ ] I.O. Intake and Output Intake and Output 05/03/19 07:00 Intake Total 240 ml Output Total 1100 ml Balance -860 ml Intake Oral 240 ml Output Urine Total 1100 ml Stool Total 0 ml Labs Labs Laboratory Tests Test 05/03/19 04:00 Sodium Level 145 mmol/L (136-145) Potassium Level 3.8 mmol/L (3.5-5.1) Chloride Level 109 mmol/L (98-107) Carbon Dioxide Level 27 mmol/L (21-32) Anion Gap 9 (6-14) Blood Urea Nitrogen 33 mg/dL (8-26) Creatinine 1.5 mg/dL (0.7-1.3) Estimated GFR (Cockcroft-Gault) 46.5 Glucose Level 146 mg/dL (70-99) Calcium Level 7.9 mg/dL (8.5-10.1) Micro Micro Microbiology 04/29/19 - Final, Complete 04/29/19 - Final, Complete 04/29/19 - Final, Complete 04/29/19 - Final, Complete 04/29/19 - Final, Complete 04/29/19 - Final, Complete 04/29/19 Gram Stain Evaluation - Final, Complete 04/29/19 Sputum Culture - Final, Complete 04/29/19 Blood Culture - Preliminary, Resulted NO GROWTH AFTER 3 DAYS Review of Systems Constitutional: yes: alert, oriented Ears/Nose/Throat: Yes: other Eyes: Yes: no symptom reported Pulmonary: Yes dyspnea Cardiovascular: Yes chest pain Gastrointestional: Yes: no symptom reported Genitourinary: Yes: no symptom reported Musculoskeletal: Yes: no symptom reported Psychiatric/Neurological: Yes: no symptom reported Endocrine: Yes: no symptom reported Physical Exam General Appearance: no apparent distress Skin: warm Respiratory: bilateral CTA Heart: S1S2 Abdomen: soft, bowel sounds present Genitourinary: bladder flat Neurology: alert, oriented, follow commands Musculoskeletal: low back pain Assessment Assessment IMP NSTEMI-S/P PTCA AND STENT LEUCOCYTOSIS-RESOLVED DYSPNEA-RESOLVED ? PNEUMONIA RECENT KAJAL-RESOLVED CKD STAGE 3 CR AT BASELINE NEAR 1.5 HX OF PARTIAL LEFT NEPHRECTOMY/TUMOR RESECTION YEARS AGO HX OF NEPHROLITHIASIS HX OF BLADDER TUMOR RESECTION HTN HX PLAN HYDRATION CARDIOLOGY EVAL NO EVIDENCE OF KAJAL OK FOR D/C FROM RENAL STANDPOINT D/W ATTENDING JARRELL OWENS MD May 03, 2019 11:51
[2019-05-03] MEDS: amLODIPine BESYLATE 5 MG TABLET PO SCH (12:27)
--- NOTE | 2019-05-03 12:37 | PDOC3 ---
Discharge Summary Visit Information Date of Admission: Apr 28, 2019 Date of Discharge: May 03, 2019 Admitting Diagnosis Comment: 1. NSTEMI: s/p LHC 2 stents (05/01) 2. HYPOTENSIOn - s/p off pressor 2. Hemoptysis , resolved 3. KAJAL - creat 4 now 1.6 Multifocal bilateral ground glass opacities and consolidations, greatest in the right lung and likely representing multifocal infection. 3. Hx of TB as child 4. CAD: 2 stents with last placed in 2012. [facility] 6. hyperlipidemia 7. Hx of bladder CA and left renal tumor resection 8. CKD: 9. hx of tobacco use, quit 10. hypothyroid on replacement 11. peripheral neuropathy Final Diagnosis Problems Medical Problems: (1) CAD (coronary artery disease) Status: Chronic (2) CKD (chronic kidney disease) Status: Chronic (3) Hemoptysis Status: Acute (4) HLD (hyperlipidemia) Status: Chronic (5) HTN (hypertension) Status: Chronic (6) Hypothyroid Status: Chronic (7) NSTEMI (non-ST elevated myocardial infarction) Status: Acute (8) Peripheral neuropathy Status: Chronic Brief Hospital Course Allergies Allergies Coded Allergies Type Severity Reaction Last Updated Verified No Known Drug Allergies 01/19/16 No Vital Signs Vital Signs Date Time Temp Pulse Resp B/P (MAP) Pulse Ox O2 Delivery O2 Flow Rate FiO2 05/03/19 12:27 62 194/84 05/03/19 11:00 97.1 16 95 Room Air 97.1 05/03/19 01:43 2.0 Lab Results Laboratory Tests Test 05/01/19 14:45 05/02/19 05:00 05/03/19 04:00 Urine Collection Type Unknown Urine Color Yellow Urine Clarity Clear Urine pH 5.5 Urine Specific [place] >=1.030 Urine Protein Negative mg/dL (NEG-TRACE) Urine Glucose (UA) Negative mg/dL (NEG) Urine Ketones (Stick) Negative mg/dL (NEG) Urine Blood Negative (NEG) Urine Nitrite Negative (NEG) Urine Bilirubin Negative (NEG) Urine Urobilinogen Dipstick 1.0 mg/dL (0.2 mg/dL) Urine Leukocyte Esterase Negative (NEG) Urine RBC Occ /HPF (0-2) Urine WBC 0 /HPF (0-4) Urine Squamous Epithelial Cells Few /LPF Urine Bacteria 0 /HPF (0-FEW) White Blood Count 10.1 x10^3/uL (4.0-11.0) Red Blood Count 3.35 x10^6/uL (4.30-5.70) Hemoglobin 10.2 g/dL (13.0-17.5) Hematocrit 29.9 % (39.0-53.0) Mean Corpuscular Volume 89 fL (79-100) Mean Corpuscular Hemoglobin 31 pg (25-35) Mean Corpuscular Hemoglobin Concent 34 g/dL (31-37) Red Cell Distribution Width 14.7 % (11.5-14.5) Platelet Count 109 x10^3/uL (140-400) Neutrophils (%) (Auto) 92 % (31-73) Lymphocytes (%) (Auto) 5 % (24-48) Monocytes (%) (Auto) 3 % (0-9) Eosinophils (%) (Auto) 0 % (0-3) Basophils (%) (Auto) 0 % (0-3) Neutrophils # (Auto) 9.2 x10^3/uL (1.8-7.7) Lymphocytes # (Auto) 0.5 x10^3/uL (1.0-4.8) Monocytes # (Auto) 0.3 x10^3/uL (0.0-1.1) Eosinophils # (Auto) 0.0 x10^3/uL (0.0-0.7) Basophils # (Auto) 0.0 x10^3/uL (0.0-0.2) Sodium Level 146 mmol/L (136-145) 145 mmol/L (136-145) Potassium Level 3.4 mmol/L (3.5-5.1) 3.8 mmol/L (3.5-5.1) Chloride Level 110 mmol/L (98-107) 109 mmol/L (98-107) Carbon Dioxide Level 25 mmol/L (21-32) 27 mmol/L (21-32) Anion Gap 11 (6-14) 9 (6-14) Blood Urea Nitrogen 39 mg/dL (8-26) 33 mg/dL (8-26) Creatinine 1.6 mg/dL (0.7-1.3) 1.5 mg/dL (0.7-1.3) Estimated GFR (Cockcroft-Gault) 43.2 46.5 Glucose Level 147 mg/dL (70-99) 146 mg/dL (70-99) Calcium Level 7.4 mg/dL (8.5-10.1) 7.9 mg/dL (8.5-10.1) Laboratory Tests Test 05/03/19 04:00 Sodium Level 145 mmol/L (136-145) Potassium Level 3.8 mmol/L (3.5-5.1) Chloride Level 109 mmol/L (98-107) Carbon Dioxide Level 27 mmol/L (21-32) Anion Gap 9 (6-14) Blood Urea Nitrogen 33 mg/dL (8-26) Creatinine 1.5 mg/dL (0.7-1.3) Estimated GFR (Cockcroft-Gault) 46.5 Glucose Level 146 mg/dL (70-99) Calcium Level 7.9 mg/dL (8.5-10.1) Brief Hospital Course Mr. Gabriel is a 69 old white male with hx childhood tB, smoker, CKD< comes in with nstemi, and had LHC and neede stents., Also was on ntg gtt for 2 days by cards. NEw meds include cont asa 81, statin, and new med brilinta, atorvastatin (stop pravastatin), pls see mrad Pt seen and examined COnsults: cards" proc: C with stenting ff up cards as instructed dc < 30 Discharge Information Condition at Discharge: Improved, Stable Disposition/Orders: D/C to Home Scheduled Amlodipine Besylate (Amlodipine Besylate) 5 Mg Tablet, 5 MG PO DAILY for htn, #90 Prescribed by: BLANCA WRIGHT on 05/03/19 1143 Amoxicillin/Potassium Clav (Amox Tr-K Clv 875-125 Mg Tab) 1 Each Tablet, 1 TAB PO BID for infection, #14 Prescribed by: BLANCA WRIGHT on 05/03/19 1143 Aspirin (Aspir 81) 81 Mg Tablet., 1 TAB PO DAILY, #30 Ref 5 (Reported) Entered as Reported by: TERRY CARPIO on 01/19/16 1156 Last Action: Continued on 04/28/19 1756 by JOSEPH ARRINGTON MD Atorvastatin Calcium (Atorvastatin Calcium) 10 Mg Tablet, 5 MG PO QHS for li pids, #90 Prescribed by: BLANCA WRIGHT on 05/03/19 1143 Buprenorphine (Butrans) 1 Each Patch.tdwk, 1 PATCH TP WEEKLY for hm, #4 (Reported) Entered as Reported by: ERIN LEROY on 04/28/191801 Last Action: Converted on 04/28/191802 by ERIN LEROY Calcium Citrate (Calcium Citrate) 250 Mg Tablet, 250 MG PO DAILY for ca, (Reported) Entered as Reported by: ERIN LEROY on 04/28/191703 Last Action: Converted on 04/28/191755 by JOSEPH ARRINGTON MD Carvedilol (Carvedilol) 25 Mg Tablet, 25 MG PO BIDWMEALS for CARDIAC, (Reported) Entered as Reported by: ERIN LEROY on 04/28/191801 Last Action: Converted on 04/28/191802 by ERIN LEROY Gabapentin (Gabapentin ) 300 Mg Capsule, 600 MG PO TID, (Reported) Entered as Reported by: TERRY CARPIO on 01/19/16 1157 Last Action: Continued on 04/28/191755 by JOSEPH ARRINGTON MD Levothyroxine Sodium (Levothyroxine Sodium) 75 Mcg Tablet, 75 MCG PO DAILYAC for THYROID SUPPLEMENT, #30 Ref 0 (Reported) Entered as Reported by: ERIN LEROY on 04/28/191801 Last Action: Continued on 04/28/191802 by ERIN LEROY Morphine Sulfate (Morphine Sulfate) 15 Mg Tablet, 1 TAB PO BID, #60 (Reported) Entered as Reported by: TERRY CARPIO on 01/19/16 1155 Last Action: Continued on 04/28/191755 by JOSEPH ARRINGTON MD Multivitamin (Multivitamins) 1 Each Tablet, 1 TAB PO DAILY for vit, #30 Ref 2 (Reported) Entered as Reported by: ERIN LEROY on 04/28/191703 Last Action: Converted on 04/28/191755 by JOSEPH ARRINGTON MD Omeprazole (Omeprazole) 20 Mg Capsule.dr, 20 MG PO BID for gut, (Reported) Entered as Reported by: ERIN LEROY on 04/28/191703 Last Action: Converted on 04/28/191755 by JOSEPH ARRINGTON MD Prednisone (Prednisone) 20 Mg Tablet, 40 MG PO DAILY for bronchitis, #2 Prescribed by: BLANCA WRIGHT on 05/03/19 1143 Ticagrelor (Brilinta) 90 Mg Tablet, 90 MG PO BID for cad, #60 Prescribed by: BLANCA WRIGHT on 05/03/19 1143 Scheduled PRN Albuterol Sulfate (Proair Hfa) 8.5 Gm Hfa.aer.ad, 2.5 MG NEB PRN Q4HRS PRN for SHORTNESS OF BREATH for 30 Days Prescribed by: BLANCA WRIGHT on 05/03/19 1143 Nitroglycerin (Nitrostat) 0.4 Mg Tab.subl, 0.4 MG SL PRN Q5MIN PRN for CHEST PAIN, #120 Prescribed by: BLANCA WRIGHT on 05/03/19 1143 Tizanidine Hcl (Tizanidine Hcl) 4 Mg Tablet, 4 MG PO TID PRN for MUSCLE SPASMS, (Reported) Entered as Reported by: ERIN LEROY on 04/28/19 1621 Last Action: Continued on 04/28/191755 by JOSEPH ARRINGTON MD Discontinued Medications Pravastatin Sodium (Pravastatin Sodium) 10 Mg Tablet, 1 TAB PO DAILY, #30 Ref 5 (Reported) Entered as Reported by: TERRY CARPIO on 01/19/16 1156 Last Action: Converted on 04/28/191755 by JOSEPH ARRINGTON MD Zolpidem Tartrate (Ambien) 10 Mg Tablet, 1 TAB PO QHS, #30 Ref 5 (Reported) Entered as Reported by: TERRY CARPIO on 01/19/16 1156 Last Action: Discontinued on 04/28/19 1607 by BLANCA ALBERT MD May 03, 2019 12:37
--- NOTE | 2019-05-03 13:08 | PDOC ---
PROGRESS NOTES Subjective Subjective Patient seen and examined Objective Objective Vital Signs Date Time Temp Pulse Resp B/P (MAP) Pulse Ox O2 Delivery O2 Flow Rate FiO2 05/03/19 12:27 62 194/84 05/03/19 11:00 97.1 16 95 Room Air 97.1 05/03/19 01:43 2.0 Intake and Output 05/03/19 07:00 Intake Total 240 ml Output Total 1100 ml Balance -860 ml Intake Oral 240 ml Output Urine Total 1100 ml Stool Total 0 ml Physical Exam Abdomen: Normal bowel sounds Heart: Regular rate General: No acute distress Lungs: Clear to auscultation Assessment Assessment Problems Medical Problems: (1) CAD (coronary artery disease) Status: Chronic (2) CKD (chronic kidney disease) Status: Chronic (3) Hemoptysis Status: Acute (4) HLD (hyperlipidemia) Status: Chronic (5) HTN (hypertension) Status: Chronic (6) Hypothyroid Status: Chronic (7) NSTEMI (non-ST elevated myocardial infarction) Status: Acute (8) Peripheral neuropathy Status: Chronic 1. NSTEMI: Peaked at 9.5, Bare metal stents placed to the LAD and LCX yesterday. Stable and continuing medications. 2. Pneumonia: no further hemoptysis. No SOA 3. Septic shock: Resolved. 4. CAD: 2 stents with last placed in 2012. Cath as above. Follows with [facility] cardiology. 5. HTN. Beta blockers caused a decreased HR. Will start norvasc. 6. HLP 7. Hx of bladder CA and left renal tumor resection 8. CKD: possibly stage 3. nephrology following 9. Remote hx of tobaccoism Comment Review of Relevant I have reviewed the following items josseline (where applicable) has been applied. Labs Laboratory Tests Test 05/01/19 14:45 05/02/19 05:00 05/03/19 04:00 Urine Collection Type Unknown Urine Color Yellow Urine Clarity Clear Urine pH 5.5 Urine Specific [place] >=1.030 Urine Protein Negative mg/dL (NEG-TRACE) Urine Glucose (UA) Negative mg/dL (NEG) Urine Ketones (Stick) Negative mg/dL (NEG) Urine Blood Negative (NEG) Urine Nitrite Negative (NEG) Urine Bilirubin Negative (NEG) Urine Urobilinogen Dipstick 1.0 mg/dL (0.2 mg/dL) Urine Leukocyte Esterase Negative (NEG) Urine RBC Occ /HPF (0-2) Urine WBC 0 /HPF (0-4) Urine Squamous Epithelial Cells Few /LPF Urine Bacteria 0 /HPF (0-FEW) White Blood Count 10.1 x10^3/uL (4.0-11.0) Red Blood Count 3.35 x10^6/uL (4.30-5.70) Hemoglobin 10.2 g/dL (13.0-17.5) Hematocrit 29.9 % (39.0-53.0) Mean Corpuscular Volume 89 fL (79-100) Mean Corpuscular Hemoglobin 31 pg (25-35) Mean Corpuscular Hemoglobin Concent 34 g/dL (31-37) Red Cell Distribution Width 14.7 % (11.5-14.5) Platelet Count 109 x10^3/uL (140-400) Neutrophils (%) (Auto) 92 % (31-73) Lymphocytes (%) (Auto) 5 % (24-48) Monocytes (%) (Auto) 3 % (0-9) Eosinophils (%) (Auto) 0 % (0-3) Basophils (%) (Auto) 0 % (0-3) Neutrophils # (Auto) 9.2 x10^3/uL (1.8-7.7) Lymphocytes # (Auto) 0.5 x10^3/uL (1.0-4.8) Monocytes # (Auto) 0.3 x10^3/uL (0.0-1.1) Eosinophils # (Auto) 0.0 x10^3/uL (0.0-0.7) Basophils # (Auto) 0.0 x10^3/uL (0.0-0.2) Sodium Level 146 mmol/L (136-145) 145 mmol/L (136-145) Potassium Level 3.4 mmol/L (3.5-5.1) 3.8 mmol/L (3.5-5.1) Chloride Level 110 mmol/L (98-107) 109 mmol/L (98-107) Carbon Dioxide Level 25 mmol/L (21-32) 27 mmol/L (21-32) Anion Gap 11 (6-14) 9 (6-14) Blood Urea Nitrogen 39 mg/dL (8-26) 33 mg/dL (8-26) Creatinine 1.6 mg/dL (0.7-1.3) 1.5 mg/dL (0.7-1.3) Estimated GFR (Cockcroft-Gault) 43.2 46.5 Glucose Level 147 mg/dL (70-99) 146 mg/dL (70-99) Calcium Level 7.4 mg/dL (8.5-10.1) 7.9 mg/dL (8.5-10.1) Laboratory Tests Test 05/03/19 04:00 Sodium Level 145 mmol/L (136-145) Potassium Level 3.8 mmol/L (3.5-5.1) Chloride Level 109 mmol/L (98-107) Carbon Dioxide Level 27 mmol/L (21-32) Anion Gap 9 (6-14) Blood Urea Nitrogen 33 mg/dL (8-26) Creatinine 1.5 mg/dL (0.7-1.3) Estimated GFR (Cockcroft-Gault) 46.5 Glucose Level 146 mg/dL (70-99) Calcium Level 7.9 mg/dL (8.5-10.1) Microbiology 04/29/19 - Final, Complete 04/29/19 - Final, Complete 04/29/19 - Final, Complete 04/29/19 - Final, Complete 04/29/19 - Final, Complete 04/29/19 - Final, Complete 04/29/19 Gram Stain Evaluation - Final, Complete 04/29/19 Sputum Culture - Final, Complete 04/29/19 Blood Culture - Preliminary, Resulted NO GROWTH AFTER 4 DAYS Medications Current Medications Sodium Chloride 1,000 ml @ 100 mls/hr 1X ONCE IV Last administered on 04/28/19at 17:41; Start 04/28/19 at 17:15; Stop 04/29/19 at 03:14; Status DC Heparin Sodium/ Dextrose 500 ml @ 0 mls/hr CONT PRN IV cvc protocol Last administered on 05/01/19at 03:08; Start 04/28/19 at 17:15; Stop 05/02/19 at 14:13; Status DC Heparin Sodium (Porcine) (Heparin Sodium) 2,350 unit PRN Q6HRS PRN IV FOR UFH LEVEL LESS THAN 0.2 Last administered on 04/30/19at 08:16; Start 04/28/19 at 17:15; Stop 05/02/19 at 17:19; Status DC Info (Anti-Coagulation Monitoring By Pharmacy) 1 each PRN DAILY PRN MC SEE COMMENTS Last administered on 04/29/19 09:36; Start 04/28/19 at 17:30; Stop 05/02/19 at 17:17; Status DC Magnesium Sulfate/ Dextrose 100 ml @ 25 mls/hr 1X ONCE IV Last administered on 04/28/19 17:41; Start 04/28/19 at 18:00; Stop 04/28/19 at 21:59; Status DC Aspirin (Ecotrin) 81 mg DAILY PO Last administered on 05/03/19 09:10; Start 04/29/19 at 09:00 Gabapentin (Neurontin) 600 mg TID PO Last administered on 05/03/19 09:10; Start 04/28/19 at 21:00 Tizanidine HCl (Zanaflex) 4 mg PRN TID PRN PO MUSCLE SPASMS Last administered on 05/02/19 21:06; Start 04/28/19 at 18:00 Calcium Carbonate/ Glycine (Oscal) 500 mg DAILY PO Last administered on 05/01/19 12:41; Start 04/29/19 at 09:00 Multivitamins (Thera M Plus) 1 tab DAILY PO Last administered on 05/01/19 12:41; Start 04/29/19 at 09:00 Pantoprazole Sodium (Protonix) 40 mg DAILYAC PO Last administered on 05/03/19 09:10; Start 04/29/19 at 07:30 Atorvastatin Calcium (Lipitor) 5 mg QHS PO Last administered on 05/02/19 21:06; Start 04/28/19 at 21:00 Morphine Sulfate (Ms Contin) 15 mg BID PO Last administered on 05/03/19 09:10; Start 04/28/19 at 21:00 Levothyroxine Sodium (Synthroid) 75 mcg DAILYAC PO Last administered on 05/03/19 09:10; Start 04/29/19 at 07:30 Non-Formulary Medication (Buprenorphine (Butrans)) 1 patch WEEKLY TP ; Start 05/05/19 at 09:00; Status UNV Carvedilol (Coreg) 25 mg BIDWMEALS PO Last administered on 04/28/19at 21:01; Start 04/28/19 at 18:30 Sodium Chloride (Normal Saline Flush) 3 ml QSHIFT PRN IV AFTER MEDS AND BLOOD DRAWS; Start 04/28/19 at 18:15; Stop 05/03/19 at 08:30; Status DC Sodium Chloride 1,000 ml @ 100 mls/hr Q10H IV ; Start 04/28/19 at 18:05; Stop 04/29/19 at 01:59; Status DC Ondansetron HCl (Zofran) 4 mg PRN Q4HRS PRN IV NAUSEA/VOMITING; Start 04/28/19 at 18:15; Stop 05/02/19 at 09:31; Status DC Acetaminophen (Tylenol) 650 mg PRN Q4HRS PRN PO TEMP OVER 100.4F OR MILD PAIN; Start 04/28/19 at 18:15; Stop 05/02/19 at 07:19; Status DC Al Hydroxide/Mg Hydroxide (Mylanta Plus Xs) 30 ml PRN DAILY PRN PO HEARTBURN / GAS Last administered on 05/03/19at 00:00; Start 04/28/19 at 18:15 Clonidine HCl (Catapres) 0.1 mg PRN Q6HRS PRN PO SBP>160 OR DBP>90; Start 04/28/19 at 18:15 Sodium Monofluorophosphate (Fleet Adult) 133 ml PRN DAILY PRN [place] CONSTIPATION; Start 04/28/19 at 18:15 Docusate Sodium (Colace) 100 mg PRN BID PRN PO CONSTIPATION Last administered on 05/02/19at 11:54; Start 04/28/19 at 18:15 Albuterol Sulfate (Ventolin Neb Soln) 2.5 mg PRN Q4HRS PRN NEB SHORTNESS OF BREATH Last administered on 05/01/19at 14:40; Start 04/28/19 at 18:15 Guaifenesin (Robitussin) 200 mg PRN Q4HRS PRN PO COUGH; Start 04/28/19 at 18:15 Lorazepam (Ativan) 0.5 mg PRN Q4HRS PRN PO ANXIETY / AGITATION Last administered on 05/01/19at 12:41; Start 04/28/19 at 18:15 Dopamine HCl/ Dextrose 250 ml @ 10.643 mls/ hr 1X ONCE IV Last administered on 04/29/19at 02:22; Start 04/29/19 at 02:00; Stop 04/29/19 at 09:52; Status DC Sodium Chloride 1,000 ml @ 75 mls/hr [id number] IV Last administered on 05/01/19at 21:10; Start 04/29/19 at 02:00; Stop 05/03/19 at 12:38; Status DC Methylprednisolone Sodium Succinate (SOLU-Medrol 125MG VIAL) 125 mg 1X ONCE IV Last administered on 04/29/19at 07:20; Start 04/29/19 at 06:30; Stop 04/29/19 at 06:31; Status DC Methylprednisolone Sodium Succinate (SOLU-Medrol 125MG VIAL) 125 mg BID IV Last administered on 05/01/19at 21:10; Start 04/29/19 at 21:00; Stop 05/02/19 at 07:25; Status DC Piperacillin Sod/ Tazobactam Sod 3.375 gm/Sodium Chloride 50 ml @ 100 mls/hr Q8HRS IV Last administered on 05/02/19at 05:05; Start 04/29/19 at 14:00; Stop 05/02/19 at 12:07; Status DC Acetaminophen (Tylenol) 500 mg PRN Q6HRS PRN PO MILD PAIN / TEMP; Start 04/29/19 at 09:00; Status Cancel Acetaminophen/ Codeine Phosphate (Tylenol #3) 1 tab PRN Q6HRS PRN PO MODERATE PAIN; Start 04/29/19 at 09:00 Dopamine HCl/ Dextrose 250 ml @ 6.959 mls/ hr CONT PRN IV SEE I/O RECORD Last administered on 04/30/19at 10:10; Start 04/29/19 at 10:00; Stop 05/03/19 at 12:38; Status DC Fentanyl Citrate (Fentanyl 2ml Vial) 100 mcg STK-MED ONCE .ROUTE ; Start at 08:37; Stop 05/01/19 at 08:37; Status DC Midazolam HCl (Versed) 2 mg STK-MED ONCE .ROUTE ; Start 05/01/19 at 08:37; Stop 05/01/19 at 08:38; Status DC Bivalirudin (Angiomax) 250 mg STK-MED ONCE IV ; Start 05/01/19 at 09:21; Stop 05/01/19 at 09:21; Status DC Midazolam HCl (Versed) 2 mg STK-MED ONCE .ROUTE ; Start 05/01/19 at 09:25; Stop 05/01/19 at 09:25; Status DC Iodixanol (Visipaque 320) 100 ml STK-MED ONCE .ROUTE ; Start 05/01/19 at 09:37; Stop 05/01/19 at 09:37; Status DC Ticagrelor (Brilinta) 90 mg STK-MED ONCE .ROUTE ; Start 05/01/19 at 09:51; Stop 05/01/19 at 09:51; Status DC Heparin Sodium/ Sodium Chloride (HEPARIN for ARTERIAL LINE FLUSH) 1,000 unit 1X ONCE IART Last administered on 05/01/19at 10:09; Start 05/01/19 at 10:00; Stop 05/01/19 at 10:06; Status DC Midazolam HCl (Versed) 3 mg 1X ONCE IV Last administered on 05/01/19at 10:09; Start 05/01/19 at 10:00; Stop 05/01/19 at 10:06; Status DC Fentanyl Citrate (Fentanyl 2ml Vial) 37.5 mcg 1X ONCE IV Last administered on 05/01/19at 10:09; Start 05/01/19 at 10:00; Stop 05/01/19 at 10:06; Status DC Iodixanol (Visipaque 320) 217 ml 1X ONCE IART Last administered on 05/01/19at 10:09; Start 05/01/19 at 10:00; Stop 05/01/19 at 10:06; Status DC Bivalirudin (Angiomax) 250 mg 1X ONCE IV Last administered on 05/01/19at 10:09; Start 05/01/19 at 10:00; Stop 05/01/19 at 10:06; Status DC Ticagrelor (Brilinta) 180 mg 1X ONCE PO Last administered on 05/01/19at 10:09; Start 05/01/19 at 10:00; Stop 05/01/19 at 10:06; Status DC Lidocaine HCl (Lidocaine 1% 20ml Vial) 20 ml 1X ONCE INJ Last administered on 05/01/19at 10:09; Start 05/01/19 at 10:00; Stop 05/01/19 at 10:06; Status DC Sodium Chloride (Normal Saline Flush) 3 ml QSHIFT PRN IV AFTER MEDS AND BLOOD DRAWS; Start 05/01/19 at 10:30 Sodium Chloride 1,000 ml @ 75 mls/hr [id number] IV Last administered on 05/02/19at 00:56; Start 05/01/19 at 10:22 Aspirin (Ecotrin) 81 mg [id number] PO ; Start 05/01/19 at 12:00; Stop 05/01/19 at 13:06; Status DC Ticagrelor (Brilinta) 90 mg BID PO Last administered on 05/03/19at 09:10; Start 05/02/19 at 09:00 Acetaminophen (Tylenol) 650 mg PRN Q6HRS PRN PO MILD PAIN / TEMP; Start 05/01/19 at 10:30 Fentanyl Citrate (Fentanyl 2ml Vial) 50 mcg PRN Q1HR PRN IV MODERATE OR SEVERE PAIN Last administered on 05/01/19at 16:03; Start 05/01/19 at 10:30 Nitroglycerin (Nitrostat) 0.4 mg PRN Q5MIN PRN SL CHEST PAIN; Start 05/01/19 at 10:30 Amiodarone HCl 150 mg/Dextrose 103 ml @ 600 mls/hr 1X PRN PRN IV FOR VENTRICULAR TACHYCARDIA; Start 05/01/19 at 10:30 Lidocaine HCl (Lidocaine HCl 2% Abboject) 100 mg 1X PRN PRN IV FOR VENTRICULAR TACHYCARDIA; Start 05/01/19 at 10:30 Atropine Sulfate (ATROPINE 0.5mg SYRINGE) 0.5 mg PRN 1X PRN IV BRADYCARDIA; Start 05/01/19 at 10:30 Nitroglycerin/ Dextrose 250 ml @ 1.5 mls/hr CONT PRN IV SEE I/O RECORD Last administered on 05/01/19at 14:09; Start 05/01/19 at 13:15; Stop 05/03/19 at 12:38; Status DC Morphine Sulfate (Morphine Sulfate) 1 mg 1X ONCE IV Last administered on 05/01/19at 13:56; Start 05/01/19 at 13:30; Stop 05/01/19 at 13:31; Status DC Methylprednisolone Sodium Succinate (SOLU-Medrol 40MG VIAL) 40 mg BID IV Last administered on 05/02/19at 21:06; Start 05/02/19 at 09:00; Stop 05/03/19 at 07:34; Status DC Potassium Chloride (Klor-Con) 20 meq 1X ONCE PO Last administered on 05/02/19at 11:54; Start 05/02/19 at 09:30; Stop 05/02/19 at 09:32; Status DC Ondansetron HCl (Zofran) 4 mg PRN Q6HRS PRN IV NAUSEA/VOMITING; Start 05/02/19 at 09:30 Amoxicillin/ Clavulanate Potassium (Augmentin 875/ 125mg) 1 tab BID PO Last administered on 05/03/19at 09:10; Start 05/02/19 at 21:00 Bisacodyl (Dulcolax Supp) 10 mg PRN DAILY PRN [place] CONSTIPATION Last administered on 05/02/19at 14:58; Start 05/02/19 at 14:30 Prednisone (Prednisone) 40 mg DAILY PO Last administered on 05/03/19at 09:10; Start 05/03/19 at 09:00 Amlodipine Besylate (Norvasc) 5 mg DAILY PO Last administered on 05/03/19at 12:27; Start 05/03/19 at 10:45 Active Scripts Active Prednisone 20 Mg Tablet 40 Mg PO DAILY Nitrostat (Nitroglycerin) 0.4 Mg Tab.subl 0.4 Mg SL PRN Q5MIN PRN Amlodipine Besylate 5 Mg Tablet 5 Mg PO DAILY Atorvastatin Calcium 10 Mg Tablet 5 Mg PO QHS Brilinta (Ticagrelor) 90 Mg Tablet 90 Mg PO BID Proair Hfa (Albuterol Sulfate) 8.5 Gm Hfa.aer.ad 2.5 Mg NEB PRN Q4HRS PRN 30 Days Amox Tr-K Clv 875-125 Mg Tab (Amoxicillin/Potassium Clav) 1 Each Tablet 1 Tab PO BID Reported Butrans (Buprenorphine) 1 Each Patch.tdwk 1 Patch TP WEEKLY Carvedilol 25 Mg Tablet 25 Mg PO BIDWMEALS Levothyroxine Sodium 75 Mcg Tablet 75 Mcg PO DAILYAC Calcium Citrate 250 Mg Tablet 250 Mg PO DAILY Multivitamins (Multivitamin) 1 Each Tablet 1 Tab PO DAILY Omeprazole 20 Mg Capsule.dr 20 Mg PO BID Tizanidine Hcl 4 Mg Tablet 4 Mg PO TID PRN Gabapentin (Gabapentin) 300 Mg Capsule 600 Mg PO TID Aspir 81 (Aspirin) 81 Mg Tablet.dr 1 Tab PO DAILY Morphine Sulfate 15 Mg Tablet 1 Tab PO BID Vitals/I & O Vital Sign - Last 24 Hours 05/02/19 05/02/19 05/02/19 05/02/19 13:23 14:23 17:43 19:30 Temp 97.9 97.9 Pulse 60 54 50 61 Resp 20 B/P (MAP) 170/73 (105) 151/72 (98) 165/76 (105) Pulse Ox 94 O2 Delivery Room Air 05/02/19 05/02/19 05/02/19 05/03/19 20:02 21:06 23:30 00:43 Temp 97.7 97.7 Pulse 56 49 Resp 18 20 B/P (MAP) 194/91 (125) 172/92 (118) Pulse Ox 96 95 O2 Delivery Nasal Cannula Nasal Cannula Room Air O2 Flow Rate 2.0 2.0 05/03/19 05/03/19 05/03/19 05/03/19 01:43 01:43 02:43 03:00 Temp 97.8 97.8 Pulse 44 44 54 Resp 18 20 B/P (MAP) 146/70 (95) 169/77 (107) 169/77 (107) Pulse Ox 95 98 O2 Delivery Nasal Cannula Room Air O2 Flow Rate 2.0 05/03/19 05/03/19 05/03/19 05/03/19 03:44 07:00 08:00 09:10 Temp 97.7 97.7 Pulse 60 51 Resp 16 B/P (MAP) 179/94 (122) 173/87 (115) Pulse Ox 92 92 O2 Delivery Room Air Room Air Nasal Cannula 05/03/19 05/03/19 05/03/19 09:12 11:00 12:27 Temp 97.1 97.1 Pulse 44 62 62 Resp 16 B/P (MAP) 194/84 (120) 194/84 Pulse Ox 95 O2 Delivery Room Air Intake and Output 05/02/19 05/02/19 05/03/19 15:00 23:00 07:00 Intake Total 240 ml Output Total 0 ml 1100 ml Balance 0 ml -860 ml SUSAN KATHLEEN MD May 03, 2019 13:08
[2019-05-03] MEDS: tiZANidine 4 MG TABLET. PO PRN (15:39)
[2019-05-03] MEDS: ATORVASTATIN CALCIUM 10 MG TABLET. PO SCH (20:38)
[2019-05-03] MEDS: BISACODYL 10 MG SUPP.RECT. PR PRN (20:38)
[2019-05-03] MEDS: MAG HYDROX/ALUMINUM HYD/SIMETH 30 ML ORAL.SUSP PO PRN ×2 (20:41)
[2019-05-04 03:28] VITALS: BP 165/94
[2019-05-04] MEDS: IV NORMAL SALINE 1000ML BAG 1,000 ML IV SCH (05:02)
[2019-05-04 07:24] VITALS: BP 158/81
[2019-05-04] MEDS: CARVEDILOL 12.5 MG TABLET. PO SCH (08:00)
[2019-05-04] MEDS: ASPIRIN ENTERIC COATED 81 MG TABLET.DR. PO SCH (08:30)
[2019-05-04] MEDS: predniSONE 20 MG TABLET PO SCH (08:30)
[2019-05-04] MEDS: GABAPENTIN 300 MG CAPSULE. PO SCH ×2 (08:30→13:37)
[2019-05-04] MEDS: CALCIUM CARBONATE 500 MG TABLET PO SCH (08:30)
[2019-05-04] MEDS: LEVOTHYROXINE 75 MCG TABLET PO SCH (08:31)
[2019-05-04] MEDS: AMOXICILLIN/K CLAV 875/125MG TABLET. PO SCH (08:31)
[2019-05-04] MEDS: amLODIPine BESYLATE 5 MG TABLET PO SCH (08:31)
[2019-05-04] MEDS: MULTIVITAMIN with MINERAL TABLET. PO SCH (08:31)
[2019-05-04] MEDS: MORPHINE ER 15 MG TABLET.ER PO SCH (08:32)
[2019-05-04] MEDS: PANTOPRAZOLE 40 MG TABLET.DR. PO SCH (08:32)
[2019-05-04] MEDS: TICAGRELOR 90 MG TABLET. PO SCH (08:36)
--- NOTE | 2019-05-04 08:36 | PDOC ---
PROGRESS NOTES Chief Complaint Chief Complaint NSTEMI: s/p LHC 2 stents (05/01) HYPOTENSIOn - s/p off pressor Hemoptysis , resolved KAJAL - creat 4 now 1.6 Multifocal bilateral ground glass opacities and consolidations, greatest in the right lung and likely representing multifocal infection. 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 [facility] Hyperlipidemia Hx of bladder CA and left renal tumor resection CKD: hx of tobacco use, quit hypothyroid on replacement peripheral neuropathy History of Present Illness History of Present Illness s/p angio and lHC and now has 2 stents On nitro gtt NO headache, no cp, vs stable LAbs ok chart reviewed off heparin gtt Has significant constipation and pain on attempting BM. Tried enema this morning, no improvement. Feels short of breath as well. Denies chest pain. PLAN: Still on nitro gtt follow cards recs NOw has 2 cardiac stents Add pt.ot? creat 1,6 now and creeping up, monitor, consult nephrology k low side, KCl 20 PO x1 today Vitals Vitals Vital Signs Date Time Temp Pulse Resp B/P (MAP) Pulse Ox O2 Delivery O2 Flow Rate FiO2 05/04/19 07:24 98.6 63 20 158/81 (106) 96 Nasal Cannula 2.0 98.6 Physical Exam Physical Exam GENERAL: Alert and oriented gentleman, not in distress. VITAL SIGNS: Stable HEENT: NAD. NECK: Supple, no JVP, no lymphadenopathy. LUNGS: Clear. HEART: S1, S2 regular. ABDOMEN: Benign. EXTREMITIES: No edema, cyanosis. SKIN: Unremarkable. NEUROLOGIC: Alert, awake and appropriate. No focal neurologic deficit. General: No acute distress Heart: Regular rate Lungs: Clear Abdomen: Normal bowel sounds Extremities: No clubbing Skin: No breakdown Assessment and Plan Assessmemt and Plan Problems Medical Problems: (1) CAD (coronary artery disease) Status: Chronic (2) CKD (chronic kidney disease) Status: Chronic (3) Hemoptysis Status: Acute (4) HLD (hyperlipidemia) Status: Chronic (5) HTN (hypertension) Status: Chronic (6) Hypothyroid Status: Chronic (7) NSTEMI (non-ST elevated myocardial infarction) Status: Acute (8) Peripheral neuropathy Status: Chronic Comment Review of Relevant I have reviewed the following items josseline (where applicable) has been applied. Labs Laboratory Tests Test 05/03/19 04:00 Sodium Level 145 mmol/L (136-145) Potassium Level 3.8 mmol/L (3.5-5.1) Chloride Level 109 mmol/L (98-107) Carbon Dioxide Level 27 mmol/L (21-32) Anion Gap 9 (6-14) Blood Urea Nitrogen 33 mg/dL (8-26) Creatinine 1.5 mg/dL (0.7-1.3) Estimated GFR (Cockcroft-Gault) 46.5 Glucose Level 146 mg/dL (70-99) Calcium Level 7.9 mg/dL (8.5-10.1) Microbiology 04/29/19 - Final, Complete 04/29/19 - Final, Complete 04/29/19 - Final, Complete 04/29/19 - Final, Complete 04/29/19 - Final, Complete 04/29/19 - Final, Complete 04/29/19 Gram Stain Evaluation - Final, Complete 04/29/19 Sputum Culture - Final, Complete 04/29/19 Blood Culture - Preliminary, Resulted NO GROWTH AFTER 4 DAYS Medications Current Medications Sodium Chloride 1,000 ml @ 100 mls/hr 1X ONCE IV Last administered on 04/28/19at 17:41; Start 04/28/19 at 17:15; Stop 04/29/19 at 03:14; Status DC Heparin Sodium/ Dextrose 500 ml @ 0 mls/hr CONT PRN IV cvc protocol Last administered on 05/01/19at 03:08; Start 04/28/19 at 17:15; Stop 05/02/19 at 14:13; Status DC Heparin Sodium (Porcine) (Heparin Sodium) 2,350 unit PRN Q6HRS PRN IV FOR UFH LEVEL LESS THAN 0.2 Last administered on 04/30/19at 08:16; Start 04/28/19 at 17 :15; Stop 05/02/19 at 17:19; Status DC Info (Anti-Coagulation Monitoring By Pharmacy) 1 each PRN DAILY PRN MC SEE COMMENTS Last administered on 04/29/19at 09:36; Start 04/28/19 at 17:30; Stop 05/02/19 at 17:17; Status DC Magnesium Sulfate/ Dextrose 100 ml @ 25 mls/hr 1X ONCE IV Last administered on 04/28/19at 17:41; Start 04/28/19 at 18:00; Stop 04/28/19 at 21:59; Status DC Aspirin (Ecotrin) 81 mg DAILY PO Last administered on 05/03/19 09:10; Start 04/29/19 at 09:00 Gabapentin (Neurontin) 600 mg TID PO Last administered on 05/03/19 20:41; Start 04/28/19 at 21:00 Tizanidine HCl (Zanaflex) 4 mg PRN TID PRN PO MUSCLE SPASMS Last administered on 05/03/19 15:39; Start 04/28/19 at 18:00 Calcium Carbonate/ Glycine (Oscal) 500 mg DAILY PO Last administered on 05/01/19 12:41; Start 04/29/19 at 09:00 Multivitamins (Thera M Plus) 1 tab DAILY PO Last administered on 05/01/19 12:41; Start 04/29/19 at 09:00 Pantoprazole Sodium (Protonix) 40 mg DAILYAC PO Last administered on 05/03/19 09:10; Start 04/29/19 at 07:30 Atorvastatin Calcium (Lipitor) 5 mg QHS PO Last administered on 05/03/19 20:41; Start 04/28/19 at 21:00 Morphine Sulfate (Ms Contin) 15 mg BID PO Last administered on 05/03/19 20:41; Start 04/28/19 at 21:00 Levothyroxine Sodium (Synthroid) 75 mcg DAILYAC PO Last administered on 05/03/19 09:10; Start 04/29/19 at 07:30 Non-Formulary Medication (Buprenorphine (Butrans)) 1 patch WEEKLY TP ; Start 05/05/19 at 09:00; Status UNV Carvedilol (Coreg) 25 mg BIDWMEALS PO Last administered on 04/28/19 21:01; Start 04/28/19 at 18:30 Sodium Chloride (Normal Saline Flush) 3 ml QSHIFT PRN IV AFTER MEDS AND BLOOD DRAWS; Start 04/28/19 at 18:15; Stop 05/03/19 at 08:30; Status DC Sodium Chloride 1,000 ml @ 100 mls/hr Q10H IV ; Start 04/28/19 at 18:05; Stop 04/29/19 at 01:59; Status DC Ondansetron HCl (Zofran) 4 mg PRN Q4HRS PRN IV NAUSEA/VOMITING; Start 04/28/19 at 18:15; Stop 05/02/19 at 09:31; Status DC Acetaminophen (Tylenol) 650 mg PRN Q4HRS PRN PO TEMP OVER 100.4F OR MILD PAIN; Start 04/28/19 at 18:15; Stop 05/02/19 at 07:19; Status DC Al Hydroxide/Mg Hydroxide (Mylanta Plus Xs) 30 ml PRN DAILY PRN PO HEARTBURN / GAS Last administered on 05/03/19 20:41; Start 04/28/19 at 18:15 Clonidine HCl (Catapres) 0.1 mg PRN Q6HRS PRN PO SBP>160 OR DBP>90 Last administered on 05/03/19 17:43; Start 04/28/19 at 18:15 Sodium Monofluorophosphate (Fleet Adult) 133 ml PRN DAILY PRN MO CONSTIPATION; Start 04/28/19 at 18:15 Docusate Sodium (Colace) 100 mg PRN BID PRN PO CONSTIPATION Last administered on 05/02/19 11:54; Start 04/28/19 at 18:15 Albuterol Sulfate (Ventolin Neb Soln) 2.5 mg PRN Q4HRS PRN NEB SHORTNESS OF BREATH Last administered on 05/01/19 14:40; Start 04/28/19 at 18:15 Guaifenesin (Robitussin) 200 mg PRN Q4HRS PRN PO COUGH; Start 04/28/19 at 18:15 Lorazepam (Ativan) 0.5 mg PRN Q4HRS PRN PO ANXIETY / AGITATION Last administered on 05/01/19 12:41; Start 04/28/19 at 18:15 Dopamine HCl/ Dextrose 250 ml @ 10.643 mls/ hr 1X ONCE IV Last administered on 04/29/19 02:22; Start 04/29/19 at 02:00; Stop 04/29/19 at 09:52; Status DC Sodium Chloride 1,000 ml @ 75 mls/hr [id number] IV Last administered on 05/01/19 21:10; Start 04/29/19 at 02:00; Stop 05/03/19 at 12:38; Status DC Methylprednisolone Sodium Succinate (SOLU-Medrol 125MG VIAL) 125 mg 1X ONCE IV Last administered on 04/29/19at 07:20; Start 04/29/19 at 06:30; Stop 04/29/19 at 06:31; Status DC Methylprednisolone Sodium Succinate (SOLU-Medrol 125MG VIAL) 125 mg BID IV Last administered on 05/01/19at 21:10; Start 04/29/19 at 21:00; Stop 05/02/19 at 07:25; Status DC Piperacillin Sod/ Tazobactam Sod 3.375 gm/Sodium Chloride 50 ml @ 100 mls/hr Q8HRS IV Last administered on 05/02/19at 05:05; Start 04/29/19 at 14:00; Stop 05/02/19 at 12:07; Status DC Acetaminophen (Tylenol) 500 mg PRN Q6HRS PRN PO MILD PAIN / TEMP; Start 04/29/19 at 09:00; Status Cancel Acetaminophen/ Codeine Phosphate (Tylenol #3) 1 tab PRN Q6HRS PRN PO MODERATE PAIN; Start 04/29/19 at 09:00 Dopamine HCl/ Dextrose 250 ml @ 6.959 mls/ hr CONT PRN IV SEE I/O RECORD Last administered on 04/30/19at 10:10; Start 04/29/19 at 10:00; Stop 05/03/19 at 12:38; Status DC Fentanyl Citrate (Fentanyl 2ml Vial) 100 mcg STK-MED ONCE .ROUTE ; Start 05/01/19 at 08:37; Stop 05/01/19 at 08:37; Status DC Midazolam HCl (Versed) 2 mg STK-MED ONCE .ROUTE ; Start 05/01/19 at 08:37; Stop 05/01/19 at 08:38; Status DC Bivalirudin (Angiomax) 250 mg STK-MED ONCE IV ; Start 05/01/19 at 09:21; Stop 05/01/19 at 09:21; Status DC Midazolam HCl (Versed) 2 mg STK-MED ONCE .ROUTE ; Start 05/01/19 at 09:25; Stop 05/01/19 at 09:25; Status DC Iodixanol (Visipaque 320) 100 ml STK-MED ONCE .ROUTE ; Start 05/01/19 at 09:37; Stop 05/01/19 at 09:37; Status DC Ticagrelor (Brilinta) 90 mg STK-MED ONCE .ROUTE ; Start 05/01/19 at 09:51; Stop 05/01/19 at 09:51; Status DC Heparin Sodium/ Sodium Chloride (HEPARIN for ARTERIAL LINE FLUSH) 1,000 unit 1X ONCE IART Last administered on 05/01/19at 10:09; Start 05/01/19 at 10:00; Stop 05/01/19 at 10:06; Status DC Midazolam HCl (Versed) 3 mg 1X ONCE IV Last administered on 05/01/19at 10:09; Start 05/01/19 at 10:00; Stop 05/01/19 at 10:06; Status DC Fentanyl Citrate (Fentanyl 2ml Vial) 37.5 mcg 1X ONCE IV Last administered on 05/01/19at 10:09; Start 05/01/19 at 10:00; Stop 05/01/19 at 10:06; Status DC Iodixanol (Visipaque 320) 217 ml 1X ONCE IART Last administered on 05/01/19at 10:09; Start 05/01/19 at 10:00; Stop 05/01/19 at 10:06; Status DC Bivalirudin (Angiomax) 250 mg 1X ONCE IV Last administered on 05/01/19at 10:09; Start 05/01/19 at 10:00; Stop 05/01/19 at 10:06; Status DC Ticagrelor (Brilinta) 180 mg 1X ONCE PO Last administered on 05/01/19at 10:09; Start 05/01/19 at 10:00; Stop 05/01/19 at 10:06; Status DC Lidocaine HCl (Lidocaine 1% 20ml Vial) 20 ml 1X ONCE INJ Last administered on 05/01/19at 10:09; Start 05/01/19 at 10:00; Stop 05/01/19 at 10:06; Status DC Sodium Chloride (Normal Saline Flush) 3 ml QSHIFT PRN IV AFTER MEDS AND BLOOD DRAWS; Start 05/01/19 at 10:30 Sodium Chloride 1,000 ml @ 75 mls/hr [id number] IV Last administered on 05/02/19at 00:56; Start 05/01/19 at 10:22 Aspirin (Ecotrin) 81 mg DAILYWBKFT PO ; Start 05/01/19 at 12:00; Stop 05/01/19 at 13:06; Status DC Ticagrelor (Brilinta) 90 mg BID PO Last administered on 05/03/19at 20:41; Start 05/02/19 at 09:00 Acetaminophen (Tylenol) 650 mg PRN Q6HRS PRN PO MILD PAIN / TEMP; Start 05/01/19 at 10:30 Fentanyl Citrate (Fentanyl 2ml Vial) 50 mcg PRN Q1HR PRN IV MODERATE OR SEVERE PAIN Last administered on 05/01/19at 16:03; Start 05/01/19 at 10:30 Nitroglycerin (Nitrostat) 0.4 mg PRN Q5MIN PRN SL CHEST PAIN; Start 05/01/19 at 10:30 Amiodarone HCl 150 mg/Dextrose 103 ml @ 600 mls/hr 1X PRN PRN IV FOR VENTRICULAR TACHYCARDIA; Start 05/01/19 at 10:30 Lidocaine HCl (Lidocaine HCl 2% Abboject) 100 mg 1X PRN PRN IV FOR VENTRICULAR TACHYCARDIA; Start 05/01/19 at 10:30 Atropine Sulfate (ATROPINE 0.5mg SYRINGE) 0.5 mg PRN 1X PRN IV BRADYCARDIA; Start 05/01/19 at 10:30 Nitroglycerin/ Dextrose 250 ml @ 1.5 mls/hr CONT PRN IV SEE I/O RECORD Last administered on 05/01/19at 14:09; Start 05/01/19 at 13:15; Stop 05/03/19 at 12:3 8; Status DC Morphine Sulfate (Morphine Sulfate) 1 mg 1X ONCE IV Last administered on 05/01/19at 13:56; Start 05/01/19 at 13:30; Stop 05/01/19 at 13:31; Status DC Methylprednisolone Sodium Succinate (SOLU-Medrol 40MG VIAL) 40 mg BID IV Last administered on 05/02/19at 21:06; Start 05/02/19 at 09:00; Stop 05/03/19 at 07:34; Status DC Potassium Chloride (Klor-Con) 20 meq 1X ONCE PO Last administered on 05/02/19at 11:54; Start 05/02/19 at 09:30; Stop 05/02/19 at 09:32; Status DC Ondansetron HCl (Zofran) 4 mg PRN Q6HRS PRN IV NAUSEA/VOMITING; Start 05/02/19 at 09:30 Amoxicillin/ Clavulanate Potassium (Augmentin 875/ 125mg) 1 tab BID PO Last administered on 05/03/19at 20:41; Start 05/02/19 at 21:00 Bisacodyl (Dulcolax Supp) 10 mg PRN DAILY PRN MO CONSTIPATION Last administered on 05/03/19 20:41; Start 05/02/19 at 14:30 Prednisone (Prednisone) 40 mg DAILY PO Last administered on 05/03/19 09:10; Start 05/03/19 at 09:00 Amlodipine Besylate (Norvasc) 5 mg DAILY PO Last administered on 05/03/19 12:27; Start 05/03/19 at 10:45 Active Scripts Active Prednisone 20 Mg Tablet 40 Mg PO DAILY Nitrostat (Nitroglycerin) 0.4 Mg Tab.subl 0.4 Mg SL PRN Q5MIN PRN Amlodipine Besylate 5 Mg Tablet 5 Mg PO DAILY Atorvastatin Calcium 10 Mg Tablet 5 Mg PO QHS Brilinta (Ticagrelor) 90 Mg Tablet 90 Mg PO BID Proair Hfa (Albuterol Sulfate) 8.5 Gm Hfa.aer.ad 2.5 Mg NEB PRN Q4HRS PRN 30 Days Amox Tr-K Clv 875-125 Mg Tab (Amoxicillin/Potassium Clav) 1 Each Tablet 1 Tab PO BID Reported Butrans (Buprenorphine) 1 Each Patch.tdwk 1 Patch TP WEEKLY Carvedilol 25 Mg Tablet 25 Mg PO BIDWMEALS Levothyroxine Sodium 75 Mcg Tablet 75 Mcg PO DAILYAC Calcium Citrate 250 Mg Tablet 250 Mg PO DAILY Multivitamins (Multivitamin) 1 Each Tablet 1 Tab PO DAILY Omeprazole 20 Mg Capsule. 20 Mg PO BID Tizanidine Hcl 4 Mg Tablet 4 Mg PO TID PRN Gabapentin (Gabapentin) 300 Mg Capsule 600 Mg PO TID Aspir 81 (Aspirin) 81 Mg Tablet. 1 Tab PO DAILY Morphine Sulfate 15 Mg Tablet 1 Tab PO BID Vitals/I & O Vital Sign - Last 24 Hours 05/03/19 05/03/19 05/03/19 05/03/19 09:10 09:12 11:00 12:27 Temp 97.1 97.1 Pulse 44 62 62 Resp 16 B/P (MAP) 194/84 (120) 194/84 Pulse Ox 92 95 O2 Delivery Nasal Cannula Room Air 05/03/19 05/03/19 05/03/19 05/03/19 13:17 15:00 17:27 17:43 Pulse 16 54 58 B/P (MAP) 179/89 (119) 185/85 Pulse Ox 95 94 O2 Delivery Room Air Room Air O2 Flow Rate 2.0 05/03/19 05/03/19 05/03/19 05/03/19 18:36 19:05 19:47 20:41 Temp 97.6 97.6 Pulse 18 Resp 20 B/P (MAP) 133/65 (87) 140/66 (90) Pulse Ox 96 O2 Delivery Room Air Room Air Room Air 05/03/19 05/04/19 05/04/19 05/04/19 22:51 00:45 03:28 07:24 Temp 97.6 98.4 98.6 97.6 98.4 98.6 Pulse 20 62 63 Resp 18 20 20 B/P (MAP) 169/78 (108) 165/94 (117) 158/81 (106) Pulse Ox 95 96 96 O2 Delivery Nasal Cannula Nasal Cannula Nasal Cannula O2 Flow Rate 2.0 2.0 Intake and Output 05/03/19 05/03/19 05/04/19 14:59 22:59 06:59 Intake Total 0 ml Balance 0 ml EDUARDO PELAEZ MD May 04, 2019 08:36
--- NOTE | 2019-05-04 10:20 | CARD ---
MR#: [id number] Date of Study: 05/01/2019 Ordering Physician: GEORGE CAMARGO, Referring Physician: GEORGE CAMARGO Tech: Sally Geronimo, RT (R) APPROVED REPORT Procedures Coronary angiogram Left heart cath Bare metal stent to the LAD Bare metal stent to OM1 The patient is a 69 year old male admitted with a non STEMI. He additionally has impaired kidney fun ction. His kidney function improved with treatment and a heart cath was recommended. Risks and benef its were discussed and he consented to the procedure. The patient was brought to the cathode builder and the area of the left femeral artery was prepared in the u sual manner. An 18 gauge needle was used to enter the artery. a wire placed and a 6Fr sheath placed over the wire. Diagnostic images were obtained with 6 Fr. JL4 and Nicolas Right catheters. A pigtai l was passed to the LV and pressures were obtained. No LV gram was performed. All catheter exchange s were over a wire. Significant lesion were found in the LAD and OM1 and we proceeded to revasculariz e the lesions. Angiomax was given as per protocol. A XB 3.5 guiding catheter was placed. A PT choice wire was used to cross a mid 85-90% Lad lesion. Predilation was with a 2.5 x 15 Trek balloon for 2 inflations at 8 ras. A 2.5 x 23 multi-link bare metal stent was deployed at 15 ras for 15 sec. Residual lesion was 0 %. The wire was then used to cross a 75 to 80% OM lesion. Pre dilation was with a 2.5 x 15 Trek ball on at 8 ras for two inflations. A 2.5 x 18 multi link bare metal stent was deployed at 15 ras for 15 sec. Residual lesion was 0%. The system was removed from the patient. Injection of the sheath adali wed normal placement. The sheath was removed and sealed with an angioseal device. The patient was mo betty to the holding area. Findings. Hemodynamics LV 134/12. AO 130/84 Coronaries L main. No lesions. LAD. Mid 85 to 90% lesion. LCX. OM1 with a 75-80% lesion. RCA. mid 20 to 25 % lesion. <Conclusion> Significant 2 vessel CAD Bare metal stent to the LAD with a 0% residual lesion. Bare metal stent to the OM1 with a 0% residual lesion. Signed by : Ramírez Motta MD Electronically Approved : 05/04/2019 10:19:58
--- NOTE | 2019-05-04 10:25 | PDOC ---
SUBJECTIVE ROS c/o Constipation. No other complaints OBJECTIVE Vital Signs Vital Signs Date Time Temp Pulse Resp B/P (MAP) Pulse Ox O2 Delivery O2 Flow Rate FiO2 05/04/19 08:37 16 Nasal Cannula 2.0 05/04/19 08:37 63 158/81 05/04/19 07:24 98.6 96 98.6 I & 0 Intake and Output 05/04/19 06:59 Intake Total 0 ml Balance 0 ml Intake Oral 0 ml # Voids 1 PHYSICAL EXAM Physical Exam GENERAL: Alert and oriented gentleman, not in distress. VITAL SIGNS: Stable HEENT: NAD. NECK: Supple, no JVP, no lymphadenopathy. LUNGS: Clear. HEART: S1, S2 regular. ABDOMEN: Benign. EXTREMITIES: No edema, cyanosis. SKIN: Unremarkable. NEUROLOGIC: Alert, awake and appropriate. No focal neurologic deficit. DIAGNOSIS/ASSESSMENT Assessment & Plan CKD STAGE 3 - Baseline Cr 1.5 per previous Renal notes Stable renal function on 05/[address] Dietrich- Nephrology at [facility]- Recent- Resolved At [facility] with Cr of 4.3 recently, Improved with Hydration NSTEMI - S/P PCI HX of partial Nephrectomy Lt Tumor Resection years ago Hx of Nephrolithiasis HX of Bladder Tumor resection HTN- stable COMMENT/RELEVANT DATA Meds Current Medications Medications (Trade) Dose Ordered Sig/Laura Start Time Stop Time Status Last Admin Dose Admin Acetaminophen (Tylenol) 650 mg PRN Q6HRS PRN 05/01/19 10:30 Acetaminophen/ Codeine Phosphate (Tylenol #3) 1 tab PRN Q6HRS PRN 04/29/19 09:00 Al Hydroxide/Mg Hydroxide (Mylanta Plus Xs) 30 ml PRN DAILY PRN 04/28/19 18:15 05/03/19 20:41 30 ML Albuterol Sulfate (Ventolin Neb Soln) 2.5 mg PRN Q4HRS PRN 04/28/19 18:15 05/01/19 14:40 2.5 MG Amiodarone HCl 150 mg/Dextrose 103 ml @ 600 mls/hr 1X PRN PRN 05/01/19 10:30 Amlodipine Besylate (Norvasc) 5 mg DAILY 05/03/19 10:45 05/04/19 08:37 5 MG Amoxicillin/ Clavulanate Potassium (Augmentin 875/ 125mg) 1 tab BID 05/02/19 21:00 05/04/19 08:37 1 TAB Aspirin (Ecotrin) 81 mg DAILYWBKFT 05/01/19 12:00 05/01/19 13:06 DC Atorvastatin Calcium (Lipitor) 5 mg QHS 04/28/19 21:00 05/03/19 20:41 5 MG Atropine Sulfate (ATROPINE 0.5mg SYRINGE) 0.5 mg PRN 1X PRN 05/01/19 10:30 Bisacodyl (Dulcolax Supp) 10 mg PRN DAILY PRN 05/02/19 14:30 05/03/19 20:41 10 MG Bivalirudin (Angiomax) 250 mg 1X ONCE 05/01/19 10:00 05/01/19 10:06 DC 05/01/19 10:09 250 MG Calcium Carbonate/ Glycine (Oscal) 500 mg DAILY 04/29/19 09:00 05/04/19 08:37 500 MG Carvedilol (Coreg) 25 mg BIDWMEALS 04/28/19 18:30 04/28/19 21:01 25 MG Clonidine HCl (Catapres) 0.1 mg PRN Q6HRS PRN 04/28/19 18:15 05/03/19 17:43 0.1 MG Docusate Sodium (Colace) 100 mg PRN BID PRN 04/28/19 18:15 05/02/19 11:54 100 MG Dopamine HCl/ Dextrose 250 ml @ 6.959 mls/ hr CONT PRN 04/29/19 10:00 05/03/19 12:38 DC 04/30/19 10:10 26.097 MLS/HR Fentanyl Citrate (Fentanyl 2ml Vial) 50 mcg PRN Q1HR PRN 05/01/19 10:30 05/01/19 16:03 50 MCG Gabapentin (Neurontin) 600 mg TID 04/28/19 21:00 05/04/19 08:37 600 MG Guaifenesin (Robitussin) 200 mg PRN Q4HRS PRN 04/28/19 18:15 Heparin Sodium (Porcine) (Heparin Sodium) 2,350 unit PRN Q6HRS PRN 04/28/19 17:15 05/02/19 17:19 DC 04/30/19 08:16 2,350 UNIT Heparin Sodium/ Dextrose 500 ml @ 0 mls/hr CONT PRN 04/28/19 17:15 05/02/19 14:13 DC 05/01/19 03:08 42.2 MLS/HR Heparin Sodium/ Sodium Chloride (HEPARIN for ARTERIAL LINE FLUSH) 1,000 unit 1X ONCE 05/01/19 10:00 05/01/19 10:06 DC 05/01/19 10:09 1,000 UNIT Info (Anti-Coagulation Monitoring By Pharmacy) 1 each PRN DAILY PRN 04/28/19 17:30 05/02/19 17:17 DC 04/29/19 09:36 1 EACH Iodixanol (Visipaque 320) 217 ml 1X ONCE 05/01/19 10:00 05/01/19 10:06 DC 05/01/19 10:09 217 ML Levothyroxine Sodium (Synthroid) 75 mcg DAILYAC 04/29/19 07:30 05/04/19 08:37 75 MCG Lidocaine HCl (Lidocaine 1% 20ml Vial) 20 ml 1X ONCE 05/01/19 10:00 05/01/19 10:06 DC 05/01/19 10:09 20 ML Lidocaine HCl (Lidocaine HCl 2% Abboject) 100 mg 1X PRN PRN 05/01/19 10:30 Lorazepam (Ativan) 0.5 mg PRN Q4HRS PRN 04/28/19 18:15 05/01/19 12:41 0.5 MG Magnesium Sulfate/ Dextrose 100 ml @ 25 mls/hr 1X ONCE 04/28/19 18:00 04/28/19 21:59 DC 04/28/19 17:41 25 MLS/HR Methylprednisolone Sodium Succinate (SOLU-Medrol 40MG VIAL) 40 mg BID 05/02/19 09:00 05/03/19 07:34 DC 05/02/19 21:06 40 MG Methylprednisolone Sodium Succinate (SOLU-Medrol 125MG VIAL) 125 mg BID 04/29/19 21:00 05/02/19 07:25 DC 05/01/19 21:10 125 MG Midazolam HCl (Versed) 3 mg 1X ONCE 05/01/19 10:00 05/01/19 10:06 DC 05/01/19 10:09 3 MG Morphine Sulfate (Morphine Sulfate) 1 mg 1X ONCE 05/01/19 13:30 05/01/19 13:31 DC 05/01/19 13:56 1 MG Morphine Sulfate (Ms Contin) 15 mg BID 04/28/19 21:00 05/04/19 08:37 15 MG Multivitamins (Thera M Plus) 1 tab DAILY 04/29/19 09:00 05/04/19 08:37 1 TAB Nitroglycerin (Nitrostat) 0.4 mg PRN Q5MIN PRN 05/01/19 10:30 Nitroglycerin/ Dextrose 250 ml @ 1.5 mls/hr CONT PRN 05/01/19 13:15 05/03/19 12:38 DC 05/01/19 14:09 1.5 MLS/HR Non-Formulary Medication (Buprenorphine (Butrans)) 1 patch WEEKLY 05/05/19 09:00 UNV Ondansetron HCl (Zofran) 4 mg PRN Q6HRS PRN 05/02/19 09:30 Pantoprazole Sodium (Protonix) 40 mg DAILYAC 04/29/19 07:30 05/04/19 08:37 40 MG Piperacillin Sod/ Tazobactam Sod 3.375 gm/Sodium Chloride 50 ml @ 100 mls/hr Q8HRS 04/29/19 14:00 05/02/19 12:07 DC 05/02/19 05:05 100 MLS/HR Potassium Chloride (Klor-Con) 20 meq 1X ONCE 05/02/19 09:30 05/02/19 09:32 DC 05/02/19 11:54 20 MEQ Prednisone (Prednisone) 40 mg DAILY 05/03/19 09:00 05/04/19 08:37 40 MG Sodium Monofluorophosphate (Fleet Adult) 133 ml PRN DAILY PRN 04/28/19 18:15 Sodium Chloride 1,000 ml @ 75 mls/hr [id number] 05/01/19 10:22 05/02/19 00:56 75 MLS/HR Sodium Chloride (Normal Saline Flush) 3 ml QSHIFT PRN 05/01/19 10:30 Ticagrelor (Brilinta) 90 mg BID 05/02/19 09:00 05/04/19 08:37 90 MG Tizanidine HCl (Zanaflex) 4 mg PRN TID PRN 04/28/19 18:00 05/03/19 15:39 4 MG Results All relevant outside records, renal labs, imaging studies, telemetry/EKG's were reviewed. MATT NDIAYE MD May 04, 2019 10:25
[2019-05-04 10:46] VITALS: BP 163/73
[2019-05-04] MEDS ORDERED: MAGNESIUM CITRATE 296 ML SOLUTION. PO ONE (11:45)
[2019-05-04] MEDS ORDERED: BISACODYL 10 MG SUPP.RECT. PR PRN (12:45)
[2019-05-04] MEDS ORDERED: POLYETHYLENE GLYCOL 3350 17 GM PACKET. PO SCH (12:45)
[2019-05-04] MEDS ORDERED: PSYLLIUM HUSK (SUGAR FREE) 1 PKT PACKET PO SCH (12:45)
[2019-05-04] MEDS ORDERED: amLODIPine BESYLATE 5 MG TABLET PO SCH (13:00)
[2019-05-04] MEDS ORDERED: amLODIPine BESYLATE 5 MG TABLET PO ONE (13:00)
--- NOTE | 2019-05-04 13:47 | PDOC ---
PULMONARY PROGRESS NOTES Subjective sob better, has cough, has back pain, on ra Vitals Vital Signs Date Time Temp Pulse Resp B/P (MAP) Pulse Ox O2 Delivery O2 Flow Rate FiO2 05/04/19 13:37 62 163/73 05/04/19 13:32 16 Room Air 05/04/19 10:46 97.7 95 2.0 97.7 ROS: No Nausea, No Chest Pain, No Abdominal Pain, No Increase Cough General: Alert HEENT: Other (nc at perrl ) Lungs: Clear Cardiovascular: S1, S2 Abdomen: Soft, Non-tender Neuro Exam: Alert Extremities: No Edema Skin: Warm Labs Laboratory Tests Test 05/03/19 04:00 Sodium Level 145 mmol/L (136-145) Potassium Level 3.8 mmol/L (3.5-5.1) Chloride Level 109 mmol/L (98-107) Carbon Dioxide Level 27 mmol/L (21-32) Anion Gap 9 (6-14) Blood Urea Nitrogen 33 mg/dL (8-26) Creatinine 1.5 mg/dL (0.7-1.3) Estimated GFR (Cockcroft-Gault) 46.5 Glucose Level 146 mg/dL (70-99) Calcium Level 7.9 mg/dL (8.5-10.1) Medications Active Scripts Medications Dose Route/Sig Max Daily Dose Days Date Category Butrans (Buprenorphine) 1 Each Patch.tdwk 1 Patch TP WEEKLY 04/28/19 Reported Carvedilol 25 Mg Tablet 25 Mg PO BIDWMEALS 04/28/19 Reported Levothyroxine Sodium 75 Mcg Tablet 75 Mcg PO DAILYAC 04/28/19 Reported Calcium Citrate 250 Mg Tablet 250 Mg PO DAILY 04/28/19 Reported Multivitamins (Multivitamin) 1 Each Tablet 1 Tab PO DAILY 04/28/19 Reported Omeprazole 20 Mg Capsule.dr 20 Mg PO BID 04/28/19 Reported Tizanidine Hcl 4 Mg Tablet 4 Mg PO TID PRN 04/28/19 Reported Gabapentin (Gabapentin) 300 Mg Capsule 600 Mg PO TID 01/19/16 Reported Pravastatin Sodium 10 Mg Tablet 1 Tab PO DAILY 01/19/16 Reported Aspir 81 (Aspirin) 81 Mg Tablet.dr 1 Tab PO DAILY 01/19/16 Reported Morphine Sulfate 15 Mg Tablet 1 Tab PO BID 01/19/16 Reported Impression . IMPRESSION: 1. Acute respiratory failure, multifactorial. 2. Abnormal CT revealing ground-glass opacities, compatible with acute lung injury. POSSIBLE CARDIOGENIC PULMONARY EDEMA 3. Possible pneumonia, gram-negative and gram-positive. 4. Coronary artery disease, status post stent placement in 2012. 5. Hemoptysis, secondary to ground-glass opacities, compatible with acute lung injury. 6. History of tuberculosis, details unknown. 7. Tobacco dependent, in remission. 8. Chronic obstructive pulmonary disease. 9. History of bladder cancer and renal cell tumor resection. 10. Chronic kidney disease. 11. POSSIBLE UNILATERAL EDEMA CARDIAC IN NATURE Plan . OFF BIPAP 02 titration, on ra keep I<O FOLLOW CARD INPUT ANTIBX per id change solumedrol to prednisone 40mg daily w taper by 10 mg q 3d. S/P CATH WITH 2 STENTS F/U CXR TODAY NO FURTHER HEMOPTYSIS discussed w pt addend: cxr 05/04 much improved when c/w cxr from 04/29, suggesting this was all heart failure. d/w RN. OK with [facility] [place] LONNY MACIAS MD May 04, 2019 13:47
[2019-05-04] MEDS ORDERED: FUROSEMIDE 40 MG/4 ML VIAL. IVP ONE ×2 (14:00→16:30)
[2019-05-04 14:45] VITALS: BP 184/83
[2019-05-04] MEDS ORDERED: FUROSEMIDE 40 MG TABLET. PO ONE (14:45)
--- NOTE | 2019-05-04 15:22 | RAD ---
EXAM: Chest, single view. HISTORY: Congestive heart failure. COMPARISON: CT dated 04/28/2019. FINDINGS: A frontal view of the chest is obtained. There is multifocal interstitial and alveolar infiltrate throughout the right greater than left lungs, similar compared to the recent CT. There is a stable suspected trace right pleural effusion. There is a stable prominent cardiac silhouette. There are calcified right paratracheal and hilar granulomas. There are few calcified granulomas throughout both lungs. There are several suspected small bone islands. IMPRESSION: 1. No significant change in mixed interstitial and alveolar infiltrate within both lungs. Follow-up to confirm resolution. 2. Stable prominent cardiac silhouette. Electronically signed by: Carol Daugherty MD (05/04/2019 3:19 PM) [facility]
[2019-05-04] MEDS ORDERED: PRED20TA PO (15:28)
[2019-05-04] MEDS ORDERED: AMLO5TAB10 PO (15:28)
[2019-05-04] MEDS ORDERED: MOVANTIK12.5 MG PO (15:30)
--- NOTE | 2019-05-04 16:04 | NUR ---
SS following up with discharge planning. PT recommending home at discharge. No discharge needs noted at this time. SS will continue to follow for discharge planning.
--- NOTE | 2019-05-04 16:40 | PDOC ---
PROGRESS NOTES Subjective Subjective Patient seen and examined Objective Objective Vital Signs Date Time Temp Pulse Resp B/P (MAP) Pulse Ox O2 Delivery O2 Flow Rate FiO2 05/04/19 14:45 98.0 63 20 184/83 (116) 95 Nasal Cannula 1.0 98.0 Intake and Output 05/04/19 06:59 Intake Total 0 ml Balance 0 ml Intake Oral 0 ml # Voids 1 Physical Exam Abdomen: Normal bowel sounds Heart: Regular rate General: No acute distress Lungs: Clear to auscultation Assessment Assessment Problems Medical Problems: (1) CAD (coronary artery disease) Status: Chronic (2) CKD (chronic kidney disease) Status: Chronic (3) Hemoptysis Status: Acute (4) HLD (hyperlipidemia) Status: Chronic (5) HTN (hypertension) Status: Chronic (6) Hypothyroid Status: Chronic (7) NSTEMI (non-ST elevated myocardial infarction) Status: Acute (8) Peripheral neuropathy Status: Chronic 1. NSTEMI: Peaked at 9.5, Bare metal stents placed to the LAD and LCX . Stable and continuing medications. 2. Pneumonia: no further hemoptysis. 3. Septic shock: Resolved. 4. CAD: 2 stents with last placed in 2012. Cath 3 days ago as above. Follows with [facility] cardiology. 5. HTN. Beta blockers caused a decreased HR. Increase norvasc to 10 mg a day. 6. HLP 7. Hx of bladder CA and left renal tumor resection 8. CKD: possibly stage 3. nephrology following, Creat. stable. Comment Review of Relevant I have reviewed the following items josseline (where applicable) has been applied. Labs Laboratory Tests Test 05/03/19 04:00 Sodium Level 145 mmol/L (136-145) Potassium Level 3.8 mmol/L (3.5-5.1) Chloride Level 109 mmol/L (98-107) Carbon Dioxide Level 27 mmol/L (21-32) Anion Gap 9 (6-14) Blood Urea Nitrogen 33 mg/dL (8-26) Creatinine 1.5 mg/dL (0.7-1.3) Estimated GFR (Cockcroft-Gault) 46.5 Glucose Level 146 mg/dL (70-99) Calcium Level 7.9 mg/dL (8.5-10.1) Microbiology 04/29/19 - Final, Complete 04/29/19 - Final, Complete 04/29/19 - Final, Complete 04/29/19 - Final, Complete 04/29/19 - Final, Complete 04/29/19 - Final, Complete 04/29/19 Gram Stain Evaluation - Final, Complete 04/29/19 Sputum Culture - Final, Complete 04/29/19 Blood Culture - Final, Complete NO GROWTH AFTER 5 DAYS Medications Current Medications Sodium Chloride 1,000 ml @ 100 mls/hr 1X ONCE IV Last administered on 04/28/19at 17:41; Start 04/28/19 at 17:15; Stop 04/29/19 at 03:14; Status DC Heparin Sodium/ Dextrose 500 ml @ 0 mls/hr CONT PRN IV cvc protocol Last administered on 05/01/19at 03:08; Start 04/28/19 at 17:15; Stop 05/02/19 at 14:13; Status DC Heparin Sodium (Porcine) (Heparin Sodium) 2,350 unit PRN Q6HRS PRN IV FOR UFH LEVEL LESS THAN 0.2 Last administered on 04/30/19at 08:16; Start 04/28/19 at 17:15; Stop 05/02/19 at 17:19; Status DC Info (Anti-Coagulation Monitoring By Pharmacy) 1 each PRN DAILY PRN MC SEE COMMENTS Last administered on 04/29/19at 09:36; Start 04/28/19 at 17:30; Stop 05/02/19 at 17:17; Status DC Magnesium Sulfate/ Dextrose 100 ml @ 25 mls/hr 1X ONCE IV Last administered on 04/28/19at 17:41; Start 04/28/19 at 18:00; Stop 04/28/19 at 21:59; Status DC Aspirin (Ecotrin) 81 mg DAILY PO Last administered on 05/04/19at 08:37; Start 04/29/19 at 09:00 Gabapentin (Neurontin) 600 mg TID PO Last administered on 05/04/19at 13:37; Start 04/28/19 at 21:00 Tizanidine HCl (Zanaflex) 4 mg PRN TID PRN PO MUSCLE SPASMS Last administered on 05/03/19at 15:39; Start 04/28/19 at 18:00 Calcium Carbonate/ Glycine (Oscal) 500 mg DAILY PO Last administered on 05/04/19at 08:37; Start 04/29/19 at 09:00 Multivitamins (Thera M Plus) 1 tab DAILY PO Last administered on 05/04/19 08:37; Start 04/29/19 at 09:00 Pantoprazole Sodium (Protonix) 40 mg DAILYAC PO Last administered on 05/04/19 08:37; Start 04/29/19 at 07:30 Atorvastatin Calcium (Lipitor) 5 mg QHS PO Last administered on 05/03/19 20:41; Start 04/28/19 at 21:00 Morphine Sulfate (Ms Contin) 15 mg BID PO Last administered on 05/04/19 08:37; Start 04/28/19 at 21:00 Levothyroxine Sodium (Synthroid) 75 mcg DAILYAC PO Last administered on 05/04/19 08:37; Start 04/29/19 at 07:30 Non-Formulary Medication (Buprenorphine (Butrans)) 1 patch WEEKLY TP ; Start 05/05/19 at 09:00; Status UNV Carvedilol (Coreg) 25 mg BIDWMEALS PO Last administered on 04/28/19 21:01; Start 04/28/19 at 18:30; Stop 05/04/19 at 12:57; Status DC Sodium Chloride (Normal Saline Flush) 3 ml QSHIFT PRN IV AFTER MEDS AND BLOOD DRAWS; Start 04/28/19 at 18:15; Stop 05/03/19 at 08:30; Status DC Sodium Chloride 1,000 ml @ 100 mls/hr Q10H IV ; Start 04/28/19 at 18:05; Stop 04/29/19 at 01:59; Status DC Ondansetron HCl (Zofran) 4 mg PRN Q4HRS PRN IV NAUSEA/VOMITING; Start 04/28/19 at 18:15; Stop 05/02/19 at 09:31; Status DC Acetaminophen (Tylenol) 650 mg PRN Q4HRS PRN PO TEMP OVER 100.4F OR MILD PAIN; Start 04/28/19 at 18:15; Stop 05/02/19 at 07:19; Status DC Al Hydroxide/Mg Hydroxide (Mylanta Plus Xs) 30 ml PRN DAILY PRN PO HEARTBURN / GAS Last administered on 05/03/19 20:41; Start 04/28/19 at 18:15 Clonidine HCl (Catapres) 0.1 mg PRN Q6HRS PRN PO SBP>160 OR DBP>90 Last administered on 05/03/19 17:43; Start 04/28/19 at 18:15 Sodium Monofluorophosphate (Fleet Adult) 133 ml PRN DAILY PRN DE CONSTIPATION Last administered on 05/04/19 11:39; Start 04/28/19 at 18:15 Docusate Sodium (Colace) 100 mg PRN BID PRN PO CONSTIPATION Last administered on 05/02/19 11:54; Start 04/28/19 at 18:15 Albuterol Sulfate (Ventolin Neb Soln) 2.5 mg PRN Q4HRS PRN NEB SHORTNESS OF BREATH Last administered on 05/01/19 14:40; Start 04/28/19 at 18:15 Guaifenesin (Robitussin) 200 mg PRN Q4HRS PRN PO COUGH; Start 04/28/19 at 18:15 Lorazepam (Ativan) 0.5 mg PRN Q4HRS PRN PO ANXIETY / AGITATION Last administered on 05/01/19 12:41; Start 04/28/19 at 18:15 Dopamine HCl/ Dextrose 250 ml @ 10.643 mls/ hr 1X ONCE IV Last administered on 04/29/19 02:22; Start 04/29/19 at 02:00; Stop 04/29/19 at 09:52; Status DC Sodium Chloride 1,000 ml @ 75 mls/hr [id number] IV Last administered on 05/01/19 21:10; Start 04/29/19 at 02:00; Stop 05/03/19 at 12:38; Status DC Methylprednisolone Sodium Succinate (SOLU-Medrol 125MG VIAL) 125 mg 1X ONCE IV Last administered on 04/29/19 07:20; Start 04/29/19 at 06:30; Stop 04/29/19 at 06:31; Status DC Methylprednisolone Sodium Succinate (SOLU-Medrol 125MG VIAL) 125 mg BID IV Last administered on 05/01/19 21:10; Start 04/29/19 at 21:00; Stop 05/02/19 at 07:25; Status DC Piperacillin Sod/ Tazobactam Sod 3.375 gm/Sodium Chloride 50 ml @ 100 mls/hr Q8HRS IV Last administered on 05/02/19at 05:05; Start 04/29/19 at 14:00; Stop 05/02/19 at 12:07; Status DC Acetaminophen (Tylenol) 500 mg PRN Q6HRS PRN PO MILD PAIN / TEMP; Start 04/29/19 at 09:00; Status Cancel Acetaminophen/ Codeine Phosphate (Tylenol #3) 1 tab PRN Q6HRS PRN PO MODERATE PAIN; Start 04/29/19 at 09:00 Dopamine HCl/ Dextrose 250 ml @ 6.959 mls/ hr CONT PRN IV SEE I/O RECORD Last administered on 04/30/19at 10:10; Start 04/29/19 at 10:00; Stop 05/03/19 at 12:38; Status DC Fentanyl Citrate (Fentanyl 2ml Vial) 100 mcg STK-MED ONCE .ROUTE ; Start 05/01/19 at 08:37; Stop 05/01/19 at 08:37; Status DC Midazolam HCl (Versed) 2 mg STK-MED ONCE .ROUTE ; Start 05/01/19 at 08:37; Stop 05/01/19 at 08:38; Status DC Bivalirudin (Angiomax) 250 mg STK-MED ONCE IV ; Start 05/01/19 at 09:21; Stop 05/01/19 at 09:21; Status DC Midazolam HCl (Versed) 2 mg STK-MED ONCE .ROUTE ; Start 05/01/19 at 09:25; Stop 05/01/19 at 09:25; Status DC Iodixanol (Visipaque 320) 100 ml STK-MED ONCE .ROUTE ; Start 05/01/19 at 09:37; Stop 05/01/19 at 09:37; Status DC Ticagrelor (Brilinta) 90 mg STK-MED ONCE .ROUTE ; Start 05/01/19 at 09:51; Stop 05/01/19 at 09:51; Status DC Heparin Sodium/ Sodium Chloride (HEPARIN for ARTERIAL LINE FLUSH) 1,000 unit 1X ONCE IART Last administered on 05/01/19at 10:09; Start 05/01/19 at 10:00; Stop 05/01/19 at 10:06; Status DC Midazolam HCl (Versed) 3 mg 1X ONCE IV Last administered on 05/01/19at 10:09; Start 05/01/19 at 10:00; Stop 05/01/19 at 10:06; Status DC Fentanyl Citrate (Fentanyl 2ml Vial) 37.5 mcg 1X ONCE IV Last administered on 05/01/19at 10:09; Start 05/01/19 at 10:00; Stop 05/01/19 at 10:06; Status DC Iodixanol (Visipaque 320) 217 ml 1X ONCE IART Last administered on 05/01/19at 10:09; Start 05/01/19 at 10:00; Stop 05/01/19 at 10:06; Status DC Bivalirudin (Angiomax) 250 mg 1X ONCE IV Last administered on 05/01/19at 10:09; Start 05/01/19 at 10:00; Stop 05/01/19 at 10:06; Status DC Ticagrelor (Brilinta) 180 mg 1X ONCE PO Last administered on 05/01/19at 10:09; Start 05/01/19 at 10:00; Stop 05/01/19 at 10:06; Status DC Lidocaine HCl (Lidocaine 1% 20ml Vial) 20 ml 1X ONCE INJ Last administered on 05/01/19at 10:09; Start 05/01/19 at 10:00; Stop 05/01/19 at 10:06; Status DC Sodium Chloride (Normal Saline Flush) 3 ml QSHIFT PRN IV AFTER MEDS AND BLOOD DRAWS; Start 05/01/19 at 10:30 Sodium Chloride 1,000 ml @ 75 mls/hr [id number] IV Last administered on 05/02/19at 00:56; Start 05/01/19 at 10:22 Aspirin (Ecotrin) 81 mg DAILYWBKFT PO ; Start 05/01/19 at 12:00; Stop 05/01/19 at 13:06; Status DC Ticagrelor (Brilinta) 90 mg BID PO Last administered on 05/04/19at 08:37; Start 05/02/19 at 09:00 Acetaminophen (Tylenol) 650 mg PRN Q6HRS PRN PO MILD PAIN / TEMP; Start 05/01/19 at 10:30 Fentanyl Citrate (Fentanyl 2ml Vial) 50 mcg PRN Q1HR PRN IV MODERATE OR SEVERE PAIN Last administered on 05/01/19at 16:03; Start 05/01/19 at 10:30 Nitroglycerin (Nitrostat) 0.4 mg PRN Q5MIN PRN SL CHEST PAIN; Start 05/01/19 at 10:30 Amiodarone HCl 150 mg/Dextrose 103 ml @ 600 mls/hr 1X PRN PRN IV FOR VENTRICULAR TACHYCARDIA; Start 05/01/19 at 10:30 Lidocaine HCl (Lidocaine HCl 2% Abboject) 100 mg 1X PRN PRN IV FOR VENTRICULAR TACHYCARDIA; Start 05/01/19 at 10:30 Atropine Sulfate (ATROPINE 0.5mg SYRINGE) 0.5 mg PRN 1X PRN IV BRADYCARDIA; Start 05/01/19 at 10:30 Nitroglycerin/ Dextrose 250 ml @ 1.5 mls/hr CONT PRN IV SEE I/O RECORD Last administered on 05/01/19at 14:09; Start 05/01/19 at 13:15; Stop 05/03/19 at 12:38; Status DC Morphine Sulfate (Morphine Sulfate) 1 mg 1X ONCE IV Last administered on 05/01/19at 13:56; Start 05/01/19 at 13:30; Stop 05/01/19 at 13:31; Status DC Methylprednisolone Sodium Succinate (SOLU-Medrol 40MG VIAL) 40 mg BID IV Last administered on 05/02/19at 21:06; Start 05/02/19 at 09:00; Stop 05/03/19 at 07:34; Status DC Potassium Chloride (Klor-Con) 20 meq 1X ONCE PO Last administered on 05/02/19at 11:54; Start 05/02/19 at 09:30; Stop 05/02/19 at 09:32; Status DC Ondansetron HCl (Zofran) 4 mg PRN Q6HRS PRN IV NAUSEA/VOMITING; Start 05/02/19 at 09:30 Amoxicillin/ Clavulanate Potassium (Augmentin 875/ 125mg) 1 tab BID PO Last administered on 05/04/19at 08:37; Start 05/02/19 at 21:00 Bisacodyl (Dulcolax Supp) 10 mg PRN DAILY PRN DE CONSTIPATION Last administered on 05/03/19at 20:41; Start 05/02/19 at 14:30 Prednisone (Prednisone) 40 mg DAILY PO Last administered on 05/04/19at 08:37; Start 05/03/19 at 09:00 Amlodipine Besylate (Norvasc) 5 mg DAILY PO Last administered on 05/04/19at 08:37; Start 05/03/19 at 10:45; Stop 05/04/19 at 12:56; Status DC Magnesium Citrate (Citroma) 296 ml 1X ONCE PO Last administered on 05/04/19at 11:55; Start 05/04/19 at 11:45; Stop 05/04/19 at 11:49; Status DC Polyethylene Glycol (miraLAX PACKET) 17 gm DAILY PO ; Start 05/04/19 at 12:45 Psyllium Hydrophilic Mucilloid (Metamucil Fiber Packet) 1 pkt DAILY PO ; Start 05/04/19 at 12:45 Bisacodyl (Dulcolax Supp) 10 mg PRN DAILY PRN DE CONSTIPATION; Start 05/04/19 at 12:45 Amlodipine Besylate (Norvasc) 10 mg DAILY PO ; Start 05/04/19 at 13:00; Status UNV Amlodipine Besylate (Norvasc) 10 mg DAILY PO ; Start 05/05/19 at 09:00 Amlodipine Besylate (Norvasc) 5 mg 1X ONCE PO Last administered on 05/04/19at 13:37; Start 05/04/19 at 13:00; Stop 05/04/19 at 13:07; Status DC Furosemide (Lasix) 40 mg 1X ONCE IVP ; Start 05/04/19 at 14:00; Stop 05/04/19 at 14:37; Status DC Furosemide (Lasix) 40 mg 1X ONCE PO Last administered on 05/04/19at 15:29; Start 05/04/19 at 14:45; Stop 05/04/19 at 14:46; Status DC Furosemide (Lasix) 40 mg 1X ONCE IVP ; Start 05/04/19 at 16:30; Stop 05/04/19 at 16:31; Status DC Active Scripts Active Movantik (Naloxegol Oxalate) 12.5 Mg Tablet 12.5 Mg PO PRN DAILY PRN 30 Days Prednisone 20 Mg Tablet 1 Tab PO DAILY 10 Days prednisone 40mg for 5 days, then 20mg for 5 days Amlodipine Besylate 5 Mg Tablet 10 Mg PO DAILY 30 Days Ok for 10mg Tabs #30 (Thirty) Prednisone 20 Mg Tablet 40 Mg PO DAILY Nitrostat (Nitroglycerin) 0.4 Mg Tab.subl 0.4 Mg SL PRN Q5MIN PRN Amlodipine Besylate 5 Mg Tablet 5 Mg PO DAILY Atorvastatin Calcium 10 Mg Tablet 5 Mg PO QHS Brilinta (Ticagrelor) 90 Mg Tablet 90 Mg PO BID Proair Hfa (Albuterol Sulfate) 8.5 Gm Hfa.aer.ad 2.5 Mg NEB PRN Q4HRS PRN 30 Days Amox Tr-K Clv 875-125 Mg Tab (Amoxicillin/Potassium Clav) 1 Each Tablet 1 Tab PO BID Reported Butrans (Buprenorphine) 1 Each Patch.tdwk 1 Patch TP WEEKLY Carvedilol 25 Mg Tablet 25 Mg PO BIDWMEALS Levothyroxine Sodium 75 Mcg Tablet 75 Mcg PO DAILYAC Calcium Citrate 250 Mg Tablet 250 Mg PO DAILY Multivitamins (Multivitamin) 1 Each Tablet 1 Tab PO DAILY Omeprazole 20 Mg Capsule. 20 Mg PO BID Tizanidine Hcl 4 Mg Tablet 4 Mg PO TID PRN Gabapentin (Gabapentin) 300 Mg Capsule 600 Mg PO TID Aspir 81 (Aspirin) 81 Mg Tablet. 1 Tab PO DAILY Morphine Sulfate 15 Mg Tablet 1 Tab PO BID Vitals/I & O Vital Sign - Last 24 Hours 05/03/19 05/03/19 05/03/19 05/03/19 17:27 17:43 18:36 19:05 Temp 97.6 97.6 Pulse 54 58 18 B/P (MAP) 185/85 133/65 (87) 140/66 (90) Pulse Ox 96 O2 Delivery Room Air 05/03/19 05/03/19 05/03/19 05/04/19 19:47 20:41 22:51 00:45 Temp 97.6 97.6 Pulse 20 Resp 20 18 B/P (MAP) 169/78 (108) Pulse Ox 95 O2 Delivery Room Air Room Air Nasal Cannula O2 Flow Rate 2.0 05/04/19 05/04/19 05/04/19 05/04/19 03:28 07:24 08:00 08:37 Temp 98.4 98.6 98.4 98.6 Pulse 62 63 63 Resp 20 20 B/P (MAP) 165/94 (117) 158/81 (106) 158/81 Pulse Ox 96 96 O2 Delivery Nasal Cannula Nasal Cannula Nasal Cannula O2 Flow Rate 2.0 2.0 05/04/19 05/04/19 05/04/19 05/04/19 08:37 10:46 13:32 13:37 Temp 97.7 97.7 Pulse 62 62 Resp 16 20 16 B/P (MAP) 163/73 (103) 163/73 Pulse Ox 95 O2 Delivery Nasal Cannula Nasal Cannula Room Air O2 Flow Rate 2.0 2.0 05/04/19 14:45 Temp 98.0 98.0 Pulse 63 Resp 20 B/P (MAP) 184/83 (116) Pulse Ox 95 O2 Delivery Nasal Cannula O2 Flow Rate 1.0 Intake and Output 05/03/19 05/03/19 05/04/19 14:59 22:59 06:59 Intake Total 0 ml Balance 0 ml SUSAN KATHLEEN MD May 04, 2019 16:40
--- NOTE | 2019-05-04 17:00 | NUR ---
Discharge Instructions reviewed with patient and , follow ups, prescriptions and post cath teaching done. Patient verbalizes understanding. Patient will be transported home by .
[2019-05-05] MEDS ORDERED: amLODIPine BESYLATE 5 MG TABLET PO SCH (09:00)
[2019-05-05] MEDS ORDERED: NON FORMULARY ITEM (Buprenorphine (Butrans) 1 PATCH) TP SCH (09:00)
== END 2019-05-04 17:15 | disposition home or self-care (01) | DRG 853 ==
LOC: 1 WEST ICU 14:44 → 2 NORTH 05-01 10:25
PROVIDERS: ADMIT Family Medicine; ATTEND Family Medicine
PROC: 5A09357 Assistance with Respiratory Ventilation, Less than 24 Consecutive Hours, Continuous Positive Airway Pressure (ICD-10-PCS; 2019-04-29)
PROC: 02713EZ Dilation of Coronary Artery, Two Arteries with Two Intraluminal Devices, Percutaneous Approach (ICD-10-PCS; principal; 2019-05-01)
PROC: 4A023N7 Measurement of Cardiac Sampling and Pressure, Left Heart, Percutaneous Approach (ICD-10-PCS; 2019-05-01)
PROC: B2111ZZ Fluoroscopy of Multiple Coronary Arteries using Low Osmolar Contrast (ICD-10-PCS; 2019-05-01)
DX: A41.9 Sepsis, unspecified organism (principal); I21.4 Non-ST elevation (NSTEMI) myocardial infarction; J18.9 Pneumonia, unspecified organism; R65.21 Severe sepsis with septic shock; J96.01 Acute respiratory failure with hypoxia; N17.9 Acute kidney failure, unspecified; I13.0 Hypertensive heart and chronic kidney disease with heart failure and stage 1 through stage 4 chronic kidney disease, or unspecified chronic kidney disease; J44.0 Chronic obstructive pulmonary disease with (acute) lower respiratory infection; R04.2 Hemoptysis; E03.9 Hypothyroidism, unspecified; E78.5 Hyperlipidemia, unspecified; F17.201 Nicotine dependence, unspecified, in remission; G47.33 Obstructive sleep apnea (adult) (pediatric); G62.9 Polyneuropathy, unspecified; I25.2 Old myocardial infarction; I50.9 Heart failure, unspecified; I25.10 Atherosclerotic heart disease of native coronary artery without angina pectoris; K59.00 Constipation, unspecified; N18.3 Chronic kidney disease, stage 3 (moderate); G89.29 Other chronic pain; M54.5 Low back pain; R32 Unspecified urinary incontinence; M19.90 Unspecified osteoarthritis, unspecified site; Z82.49 Family history of ischemic heart disease and other diseases of the circulatory system; Z85.51 Personal history of malignant neoplasm of bladder; Z85.528 Personal history of other malignant neoplasm of kidney; Z86.11 Personal history of tuberculosis; Z87.442 Personal history of urinary calculi; Z95.5 Presence of coronary angioplasty implant and graft; Z98.49 Cataract extraction status, unspecified eye; Z98.52 Vasectomy status; Z90.5 Acquired absence of kidney
CPT/HCPCS: 92928; 93458; G0269; 36415; 36600; 71045; 71250; 80048; 80061; 80307; 81001; 82805; 83735; 84484; 85007; 85025; 85027; 85520; 85610; 85651; 87040; 87070; 87205; 93005; 93306; 94640; 94660; 99152; 99153; C1725; C1760; C1769; C1876; C1887; C1892; J0583; J1265; J1644; J2250; J2270; J2543; J2920; J2930; J3010; J3475; J3490; J7030; J7512; J7613; Q9967; 92610; 97116; 97535; C1771; G0378

== ENCOUNTER → 2019-07-13 | Outpatient (CLI) | payer MEDICARE, OTHER ==
[2019-05-02 06:23] VITALS: BP 172/83
[~2019-07-13] MED LIST changes: +ALBU2.5V8 NEB; +AMLO5TAB10 PO; +AMOX1TAB11 PO; +ATOR10TA60 PO; +BUPR1PAT8 TP; +CALC250T PO; +CARV25TA2 PO; +LEVO75TA5 PO; +MORP-16 PO; -MORP30TA3 PO; +MOVANTIK12.5 MG PO; +MULT1TAB52 PO; -NITR0.4T SL; +NITR0.4T24 SL; +OMEP20CA10 PO; +PRED20TA PO; +TICA90TA PO; +TIZA4TAB2 PO
--- NOTE | 2019-07-14 09:42 | RAD ---
CT CHEST WO CONTRAST Indication: Hemoptysis, lung nodule Technique: Noncontrast CT imaging was performed of the chest, multiplanar reconstruction images submitted. One or more of the following individualized dose reduction techniques were utilized for this examination: 1. Automated exposure control 2. Adjustment of the mA and/or kV according to patient size 3. Use of iterative reconstruction technique. Comparison: April 28, 2019 Findings: Previously seen bilateral infiltrates have mostly resolved. There are some foci of faint groundglass density of the right upper lobe such as seen images 16 and 17 with largest about 1.2 cm, previously much greater of infiltrate present. Small 0.7 cm left lower lobe pulmonary nodule image 45 series 2 is stable. 0.3 cm left lower lobe nodule image 48 is stable. 0.2-0.3 cm left lower lobe nodule image 52 is stable. There is small partially calcified nodule along the left major fissure in the left lower lobe unchanged. There is also some calcified nodularity of the right hemithorax. There is no pleural or pericardial effusion or pneumothorax. There is severe coronary calcification. There are some calcified mediastinal and right hilar nodes. Thoracic aortic caliber is similar. Descending thoracic aorta is somewhat ectatic about 3.8 cm. There are again postsurgical changes near the gastroesophageal junction. There is hypodense lesion of the visualized superior right kidney about 4.7 cm with internal cystic characteristics. There is right renal calculus estimated about 0.4 to 0.5 cm. There is degree of emphysema. IMPRESSION: 1. Previously seen infiltrates bilaterally have mostly resolved, some residual very minimal groundglass density of the right upper lobe. There are some small pulmonary nodules as stated. 6-12 month follow-up is recommended as per revised Fleischner guidelines. 2. There is coronary calcification. 3. There is evidence of old granulomatous disease. 4. There is right renal calculus and right renal cyst. 5. There is ectatic descending thoracic aorta. Electronically signed by: Mateo Craig MD (07/14/2019 9:39 AM) [id number]
== END | disposition home or self-care (01) ==
LOC: CT 09:34
PROVIDERS: ATTEND Internal Medicine Pulmonary Disease
DX: J43.9 Emphysema, unspecified (principal); R91.8 Other nonspecific abnormal finding of lung field; I25.10 Atherosclerotic heart disease of native coronary artery without angina pectoris; I77.810 Thoracic aortic ectasia; N28.89 Other specified disorders of kidney and ureter; N20.0 Calculus of kidney; N28.1 Cyst of kidney, acquired; R04.2 Hemoptysis
CPT/HCPCS: 71250

== ENCOUNTER → 2020-02-05 | Outpatient (CLI) | payer MEDICARE, OTHER ==
[2019-05-02 06:23] VITALS: BP 172/83
[~2020-02-05] MED LIST changes: +MULT-445 PO; -MULT1TAB52 PO; -OMEP20CA10 PO; +OMEP20CA16 PO
--- NOTE | 2020-02-05 09:03 | RAD ---
CT CHEST WO CONTRAST INDICATION: Pulmonary nodules. COMPARISON STUDY: 07/13/2019. TECHNIQUE: Unenhanced axial images were obtained through the lungs and upper abdomen. Coronal and sagittal multiplanar reconstructions were also obtained. PQRS compliance statement: One or more of the following individualized dose reduction techniques were utilized for this examination: 1. Automated exposure control 2. Adjustment of the mA and/or kV according to patient size 3. Use of iterative reconstruction technique FINDINGS: Lungs and Airways: Right upper lobe groundglass opacities have resolved. Small left lower lobe nodules are stable or resolved with manufacturing sales representative nodule as follows: Stable left lower lobe nodule measuring 0.5 cm (series 3 image 47). Calcified pulmonary granulomas. Normal central airways. Pleura: The pleural spaces are normal. Heart and Mediastinum: The visualized thyroid gland is normal in size and attenuation. No axillary or supraclavicular lymphadenopathy. No mediastinal, hilar or retrocrural lymphadenopathy. Calcified mediastinal and hilar lymph nodes consistent with remote granulomatous disease. Normal cardiac size. Coronary artery atherosclerotic disease. Atherosclerosis of the thoracic aorta. Abdomen: Postsurgical changes of gastric bypass. Calcified splenic granulomas. Redemonstrated right renal cysts, better evaluated on prior renal ultrasound 10/28/2019. Bones and Soft Tissues: Degenerative changes of the spine. IMPRESSION: Right upper lobe groundglass opacities have resolved. Small left lower lobe pulmonary nodules are stable or have resolved. Consider additional 12 month follow-up to establish long-term stability. Electronically signed by: Mateo Parada MD (02/05/2020 9:00 AM) [id number]
== END | disposition home or self-care (01) ==
LOC: CT 08:52
PROVIDERS: ATTEND Internal Medicine Pulmonary Disease
DX: J84.10 Pulmonary fibrosis, unspecified (principal); I25.10 Atherosclerotic heart disease of native coronary artery without angina pectoris; I70.0 Atherosclerosis of aorta; N28.1 Cyst of kidney, acquired; M47.814 Spondylosis without myelopathy or radiculopathy, thoracic region
CPT/HCPCS: 71250

== ENCOUNTER → 2021-02-28 | Day surgery (SDC) | payer MEDICARE, OTHER ==
[~2021-02-28] VITALS: Ht 177.8 cm; Wt 93.0 kg
[~2021-02-28] MED LIST changes: +ALBUTEROL SULFATE 2.5 MG/3 ML NEBU. NEB PRN; +AMLO-186 PO; -AMLO5TAB10 PO; +CLOP75TA PO; +EPINEPHrine 1 MG/ML VIAL INJ PRN; +EPINEPHrine 1 MG/ML VIAL ONE; +HYDR-2769 PO; +IV RINGERS,LACTATED 1000ML 1,000 ML IV SCH; +LIDOCAINE 1% Multi-Dose 20 ML VIAL. INJ PRN; +LIDOCAINE 1% Multi-Dose 20 ML VIAL. ONE; +LIDOCAINE 2% PF 5 ML VIAL. ONE; +LIDOCAINE 2% VISCOUS 100 ML BOTTLE. MM PRN; +LIDOCAINE 2% VISCOUS 100 ML BOTTLE. ONE; +LIDOCAINE 4% TOPICAL 50 ML SOLUTION. MM PRN; +LIDOCAINE 4% TOPICAL 50 ML SOLUTION. ONE; +LOSA-73 PO; +OXYC18CA PO; +PROPOFOL 10 MG/ML (20ML) VIAL. IV ONE
[2021-02-28 10:41] VITALS: BP 184/87
[2021-02-28 12:03] VITALS: BP 143/72
--- NOTE | 2021-02-28 15:13 | OP ---
DATE OF SURGERY: 02/28/2021 PROCEDURE: Bronchoscopy. INDICATION: The patient with persistent right upper lobe infiltrate undergoing diagnostic bronchoscopy, risks, benefits and alternatives reviewed with the patient. He consented. DESCRIPTION TIME: A timeout was performed prior to sedation. DESCRIPTION OF PROCEDURE: The patient was sedated by Anesthesia. Vital signs and O2 saturations were maintained within normal limits throughout the procedure. The bronchoscope was passed through the left naris. Vocal cords were identified. The vocal cords were anesthetized with a total of 5 mL of 4% lidocaine. The bronchoscope was passed through the vocal cords into the proximal trachea, which was normal. The distal trachea was likewise normal. The right and left segments and subsegments were visualized. There was evidence of erythema and edema of the bronchial tubes, suggestive of acute on chronic bronchitis. Scope was wedged into the right upper lobe and bronchoalveolar lavage was performed. The return was clear. FINDINGS: 1. Normal vocal cords. 2. No endobronchial lesions. 3. Edematous and erythematous airways. PLAN: We will await the BAL results. The patient to follow up in the office on 03/25/2021. MARQUITA DR: Jennifer TID: [id number] CC: JUSTINE MITCHELL
== END | disposition home or self-care (01) ==
LOC: SURG 09:50
PROVIDERS: ATTEND Internal Medicine Pulmonary Disease
DX: R91.8 Other nonspecific abnormal finding of lung field (principal); I25.10 Atherosclerotic heart disease of native coronary artery without angina pectoris; I10 Essential (primary) hypertension; E78.00 Pure hypercholesterolemia, unspecified; E11.9 Type 2 diabetes mellitus without complications; E66.9 Obesity, unspecified; E03.9 Hypothyroidism, unspecified; F41.9 Anxiety disorder, unspecified; G47.30 Sleep apnea, unspecified; F32.9 Major depressive disorder, single episode, unspecified; Z87.891 Personal history of nicotine dependence; Z79.82 Long term (current) use of aspirin; Z79.84 Long term (current) use of oral hypoglycemic drugs; Z79.899 Other long term (current) drug therapy; Z98.890 Other specified postprocedural states; Z20.822 Contact with and (suspected) exposure to COVID-19
CPT/HCPCS: 31622; 87070; 87102; 87116; 87205; 87252; 87426; 87801; 94640; J2704; J3490; J7613; J0171

== ENCOUNTER → 2021-06-01 | Outpatient (CLI) | payer MEDICARE, OTHER ==
[2021-02-28 12:03] VITALS: BP 143/72
[~2021-06-01] MED LIST changes: -ALBUTEROL SULFATE 2.5 MG/3 ML NEBU. NEB PRN; -EPINEPHrine 1 MG/ML VIAL INJ PRN; -EPINEPHrine 1 MG/ML VIAL ONE; -IV RINGERS,LACTATED 1000ML 1,000 ML IV SCH; -LIDOCAINE 1% Multi-Dose 20 ML VIAL. INJ PRN; -LIDOCAINE 1% Multi-Dose 20 ML VIAL. ONE; -LIDOCAINE 2% PF 5 ML VIAL. ONE; -LIDOCAINE 2% VISCOUS 100 ML BOTTLE. MM PRN; -LIDOCAINE 2% VISCOUS 100 ML BOTTLE. ONE; -LIDOCAINE 4% TOPICAL 50 ML SOLUTION. MM PRN; -LIDOCAINE 4% TOPICAL 50 ML SOLUTION. ONE; -PROPOFOL 10 MG/ML (20ML) VIAL. IV ONE
--- NOTE | 2021-06-01 15:23 | KCIC ---
EXAM: Brain MRI without contrast. HISTORY: Dizziness. TECHNIQUE: Multiplanar, multisequence magnetic resonance imaging of the brain was performed without c ontrast. COMPARISON: None. FINDINGS: There is no restricted diffusion to suggest acute or subacute infarction. There is no susce ptibility effect to suggest hemorrhage. There is no mass effect or midline shift. There is no hydroce phalus. There is mild age-appropriate cerebral volume loss. There is no suspicious white matter lesio n. There is evidence of lens surgery. The paranasal sinuses mastoid air cells are unremarkable. There are prominent flow voids at the right middle cerebral artery bifurcation/trifurcation on axial image s. However, this is likely artifactual given the absence of a correlate finding to suggest a vascular malformation on coronal images. There is no suspicious calvarial lesion. IMPRESSION: No acute intracranial finding. Electronically signed by: Carol Daugherty MD (06/01/2021 3:21 PM) [id number]
== END ==
LOC: KCIC MRI 13:39
PROVIDERS: ATTEND Physician Assistant Medical
DX: R42 Dizziness and giddiness (principal)
CPT/HCPCS: 70551